=== PATIENT | male | born 1950 | race Caucasian/White ===

== ENCOUNTER 2017-10-08 23:12 | Inpatient (IN) | payer MEDICARE ==
[2017-10-08 23:46] LABS: Bilirubin Negative (Negative); Blood, Urine Negative (Negative); Clarity CLEAR (Clear); Glucose, Urine (Dipstick) Negative (Negative); Leukocyte Negative (Negative); Nitrite Negative (Negative); Protein, Urine (Dipstick) 300 mg/dL (Neg-Trace); Specific Gravity, Urine 1.016 (1.002-1.036)
[2017-10-08 23:50] LABS: Bacteria/HPF None Seen HPF (None Seen); Hyaline Casts/LPF 0-3 HYALINE CAST LPF (0-3 Hyaline); Pathc Cast-AUWi Flag 0.14 (0-2.49); RBC/HPF 0-3 HPF (0-3); Squamous Epithelial None Seen HPF (0-3); WBC/HPF 0-3 HPF (0-3)
[2017-10-08 23:54] LABS: #Lymphocytes 0.4 thou/uL (1.20-3.40); #Monocytes 0.5 thou/uL (0.11-0.59); #Neutrophils 5.9 thou/uL (1.40-6.50); %Basophils 0.2 % (0.0-1.0); %Eosinophils 0.3 % (0.0-10.0); %Lymphocytes 6.3 % (21.0-51.0); %Monocytes 7.8 % (0.0-10.0); %Neutrophils 85.4 % (42.0-75.0); Hemoglobin 8.7 g/dL (14.0-18.0); Mean Corpuscular HGB CONC 32.1 g/dL (32.0-36.0); Mean Corpuscular Hemoglobin 31.2 pg (27.0-31.0); Mean Corpuscular Volume 97.3 fl (80.0-94.0); Mean Platelet Volume 8.2 fL (7.4-10.4); Platelet Count 139 thou/uL (130-400); RBC Distribution Width 16.7 % (11.5-14.5); Red Blood Cell (RBC) Count 2.78 mill/uL (4.70-6.10)
--- NOTE | 2017-10-08 23:57 | RAD ---
TWO VIEWS CHEST 10/08/17 HISTORY: Cough. Kidney transplant 14 years ago. COMPARISON: 10/24/14. FINDINGS: Normal cardiac silhouette. Pulmonary vessels and hilum are normal. Costophrenic angles are clear. Hyp erinflation with what are presumed to be chronic changes. Left lower lobe infiltrate is suspected. No pneumothorax or osseous abnormalities. IMPRESSION: 1. Hyperinflation. Chronic changes. 2. Left lower lobe infiltrate. POS: [facility]
[2017-10-09 00:09] LABS: ALT (SGPT) 13 U/L (8-55); AST (SGOT) 18 U/L (5-34); Albumin 3.8 g/dL (3.4-4.8); Alkaline Phosphatase 45 U/L (40-150); Anion Gap 15 mmol/L (10-20); BUN (Urea Nitrogen) 75 mg/dL (8.4-25.7); Bilirubin, Total 0.6 mg/dL (0.2-1.2); Calc. Creatinine Clearance 0 mL/min (70-130); Calcium 9.2 mg/dL (7.8-10.44); Carbon Dioxide 21 mmol/L (23-31); Chloride 106 mmol/L (98-107); Estimated GFR-MDRD 16; Globulin 2.8 g/dL (2.4-3.5); Glucose 94 mg/dL (80-115); Potassium 4.3 mmol/L (3.5-5.1); Protein, Total 6.6 g/dL (5.8-8.1); Sodium 138 mmol/L (136-145)
[2017-10-09] MEDS ORDERED: Acetaminophen 500 MG TAB ONE ×3 (00:39→01:22)
[2017-10-09] MEDS ORDERED: Azithromycin 500 MG in Sodium Chloride 0.9% 250 ML 250 ML IVPB SCH (01:30)
[2017-10-09] MEDS ORDERED: cefTRIAXone\\ROCEPHIN 2 GM in Sodium Chloride 0.9% 100 ML IVPB SCH ×2 (01:30→03:04)
--- NOTE | 2017-10-09 02:22 | PDOC.FPRHP ---
- History of Present Illness Chief Complaint: Fevers History of Present Illness: 67 yo male comes in with complaints of feeling ill and fevers recorded at home. Started developing non productive cough at home 2 days ago. Denies being productive. States feeling drowsy and weak yesterday. Family in room says noticed increased weakness at home. Today he felt cold. Family says had low grade fever early in the day and then recorded a fever of 101 at home later last night. Pt reports nausea and dry heaving. Denies any nasal congestion. Reports SOB. Denies any chest pain. Denies any head congestion or headache. Denies any diarrhea or constipation. Denies any urinary symptoms. Denies any abdominal pain. Says did not have much of an appetite today and has not eaten much today. Denies any other problems at this time. - Allergies/Adverse Reactions Allergies Allergy/AdvReac Type Severity Reaction Status Date / Time ciprofloxacin Allergy Verified 10/09/17 05:24 Iodinated Contrast- Oral and Allergy Verified 10/09/17 05:24 IV Dye [Iodinated Contrast Media - IV Dye] - Home Medications Medication Instructions Recorded Confirmed Type Allopurinol 0.5 tab PO DAILY 04/13/14 10/09/17 History Atenolol 0.5 tab PO QPM 04/13/14 10/09/17 History Calcitriol 0.25 mcg PO DAILY 04/13/14 10/09/17 History Calcium Carbonate [Tums] 2 tab PO PRN PRN 04/13/14 10/09/17 History Fish Oil [Fish Oil] 1,000 mg PO DAILY 04/13/14 10/09/17 History Furosemide 1 tab PO BID 04/13/14 10/09/17 History Tacrolimus [Prograf] 2 tab PO BID 04/13/14 10/09/17 History Tamsulosin HCl [Flomax] 1 tab PO DAILY 04/13/14 10/09/17 History hydrALAZINE HCl 100 mg PO TID 04/13/14 10/09/17 History predniSONE 5 mg PO DAILY 04/13/14 10/09/17 History traMADol HCl [Ultram] 1 tab PO Q6H PRN 04/26/14 10/09/17 History Aspirin 1 tab PO DAILY 10/09/17 10/09/17 History Cholecalciferol (Vitamin D3) 5,000 unit PO DAILY 10/09/17 10/09/17 History [Vitamin D3] Darbepoetin Tato in Polysorbat 100 mcg SC [id number] 10/09/17 10/09/17 History [Aranesp] Diclofenac Sodium [Diclofenac 2 gm TOP BID 10/09/17 10/09/17 History Sodium 1% Gel] Lactobacillus Acidophilus 1 capsule PO BID 10/09/17 10/09/17 History [Probiotic] NIFEdipine [Nifedipine ER] 1 tab PO BID 10/09/17 10/09/17 History Rosuvastatin [Crestor] 1 tab PO DAILY 10/09/17 10/09/17 History Sodium Bicarbonate 650 mg PO DAILY 10/09/17 10/09/17 History predniSONE [Prednisone] 10 mg PO PRN PRN 10/09/17 10/09/17 History - History PMHx: HTN, Gout, Cataracts, 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 denies: night sweats, fatigue Eyes: denies: eye pain, vision changes ENT: denies: nasal congestion, rhinorrhea, other Respiratory: reports: cough, shortness of breath. denies: congestion, exercise intolerance, other Cardiovascular: reports: edema. denies: chest pain, palpitation, paroxysmal nocturnal dyspnea, orthopnea, other Gastrointestinal: reports: nausea. denies: vomiting, diarrhea, constipation, abdominal pain, GI bleeding Genitourinary: denies: incontinence, dysuria, polyuria, discharge Skin: denies: rashes, lesions, jaundice, itching Musculoskeletal: denies: pain, tenderness, stiffness, arthritis/arthralgias Neurological: denies: numbness, syncope, seizure, weakness Psychological: denies: anxiety, depression - Vital signs BP: [164/74] HR: [77] RR: [76] Tmax: [99.3] Pox: [93]% on [ra] Wt: [94kg] - Physical Exam Constitutional: NAD, awake, alert and oriented, well developed HEENT: normocephalic and atraumatic, PERRLA, no scleral icterus, grossly normal vision, normal nasal mucosa Neck: supple, trachea midline, no LAD, no JVD, no thyromegaly Chest: no-tender to palpation, no lesions Heart: RRR, normal S1/S2, no murmurs/rubs/gallops, pulses present, other (Edema present in LE bilaterally. 1-2+ pitting edema) Lungs: no respiratory distress, good air movement -Lungs: Mild rales noted in LLL. No wheezing present Abdomen: soft, non-tender, bowel sounds present, no masses/distention, no hernias Musculoskeletal: normal structure, normal tone Neurological: no focal deficit Skin: no rash/lesions, good turgor, capillary refill <2 seconds -Skin: Some yellowing of skin. possible jaundice Heme/Lymphatic: no unusual bruising or bleeding, no purpura, no petechia Psychiatric: normal mood and affect, good judgment and insight, intact recent and remote memory FMR H&P: Results - Labs Result Diagrams: 10/09/17 04:54 10/09/17 04:54 Lab results: WBC 7.0 thou/uL (4.8-10.8) 10/08/17 23:37 Hgb 8.7 g/dL (14.0-18.0) L 10/08/17 23:37 Hct 27.1 % (42.0-52.0) L 10/08/17 23:37 MCV 97.3 fl (80.0-94.0) H 10/08/17 23:37 Plt Count 139 thou/uL (130-400) 10/08/17 23:37 Neutrophils % 85.4 % (42.0-75.0) H 10/08/17 23:37 Sodium 138 mmol/L (136-145) 10/08/17 23:37 Potassium 4.3 mmol/L (3.5-5.1) 10/08/17 23:37 Chloride 106 mmol/L (98-107) 10/08/17 23:37 Carbon Dioxide 21 mmol/L (23-31) L 10/08/17 23:37 BUN 75 mg/dL (8.4-25.7) H 10/08/17 23:37 Creatinine 3.69 mg/dL (0.6-1.3) H 10/08/17 23:37 Glucose 94 mg/dL (80-115) 10/08/17 23:37 Lactic Acid 0.8 mmol/L (0.5-2.2) 10/08/17 23:31 Calcium 9.2 mg/dL (7.8-10.44) 10/08/17 23:37 Total Bilirubin 0.6 mg/dL (0.2-1.2) 10/08/17 23:37 AST 18 U/L (5-34) 10/08/17 23:37 ALT 13 U/L (8-55) 10/08/17 23:37 Alkaline Phosphatase 45 U/L (40-150) 10/08/17 23:37 Serum Total Protein 6.6 g/dL (5.8-8.1) 10/08/17 23:37 Albumin 3.8 g/dL (3.4-4.8) 10/08/17 23:37 Urine Ketones Negative mg/dL (Negative) 10/08/17 23:16 Urine Blood Negative (Negative) 10/08/17 23:16 Urine Nitrite Negative (Negative) 10/08/17 23:16 Ur Leukocyte Esterase Negative (Negative) 10/08/17 23:16 Urine RBC 0-3 HPF (0-3) 10/08/17 23:16 Urine WBC 0-3 HPF (0-3) 10/08/17 23:16 Ur Squamous Epith Cells None Seen HPF (0-3) 10/08/17 23:16 Urine Bacteria None Seen HPF (None Seen) 10/08/17 23:16 - Radiology Interpretation Chest x-ray Status: image reviewed by me, report reviewed by me (1. Hyperinflation, Chronic Changes 2. LLL infiltrate) FMR H&P: A/P - Problem List (1) Community acquired pneumonia Current Visit: Yes Status: Acute Code(s): J18.9 - PNEUMONIA, UNSPECIFIED ORGANISM (2) Chronic kidney disease Current Visit: Yes Status: Acute Code(s): N18.9 - CHRONIC KIDNEY DISEASE, UNSPECIFIED (3) Myelodysplastic disease Current Visit: Yes Status: Acute Code(s): C94.6 - MYELODYSPLASTIC DISEASE, NOT CLASSIFIED (4) HTN (hypertension) Current Visit: Yes Status: Acute Code(s): I10 - ESSENTIAL (PRIMARY) HYPERTENSION (5) Sleep apnea Current Visit: Yes Status: Acute Code(s): G47.30 - SLEEP APNEA, UNSPECIFIED - Plan CAP -Cxray shows LLL infiltrate. Having fevers and getting weak at home. -Rocephin and Azithromycin for abx coverage -Urine strep and legionella ag. will adjust abx coverage dependent on results -Not requiring O2 at this time. continue to monitor -Tylenol for fevers -Urine cx and Blood cx pending -Lactic acid normal DAKOTAH vs CKD 2/2 to renal transplantation. Cr elevated 3.69. GFR 16. Pt follows with Dr. hinson here in [facility] and his transplant Doctors in [place]. Nephrology consulted- Dr. Hinson- follow recs. holding lasix at this time. Giving small amount of fluids daily BMP Myelodysplastic Syndrome -Doctors in [place]. Monitor with daily CBC -F/u outpatient HTN -continue home meds Sleep Apnea -Has home CPAP machine. Use at night as instructed. Resp to help titrate FMR H&P: Upper Level - Pertinent history 67 yo CM with multiple chronic medical issues p/w cough and fever at home. states that he developed congestion and a non-productive cough 2 days ago. Progressively worsening weakness over the last couple of days. This evening around 7pm, he was noted to have a fever to 101. 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 Hinson, who advised going to ER. Pt denies any SOB, CP, or other associated symptoms, with the exception of mildly decreased appetite today. - Pertinent findings Gen: well nourished, NAD, AAOx3 CV: RRR, 4/6 high pitched cresc-decrescendo systolic murmur radiating to the carotids, L arm fistula with good thrill Lungs: LLL rales, no wheeze Ext: warm, 2+ pitting edema to b/l knees Pulses: DP 2+ b/l - Plan Date/Time: 10/09/17 0220 Luis Manuel Kimble MD have evaluated this patient and agree with findings/plan as outlined by human resource intern resident. Pertinent changes/additions are listed here. 67 yo immunosuppressed male with h/o kidney transplant p/w 1) LLL PNA: admit to medical. PNA confirmed on CXR. Continue abx. No O2 requirement at present. Urine strep pneumo and legionella Ag pending. No evidence of sepsis syndrome at this time but blood and urine cxs pending; lactic acid negative. 2) DAKOTAH v. CKDII: family states that kidney function has been steadily worsening 2/2 rejected kidney transplant; imagine GFR is at baseline but will continue gentle fluids x 12 hrs to see if any improvement on AM labs; Dr. Hinson consulted 3) Myelodysplastic syndrome: monitor CBC; patient gets monthly Aranesp injection by oncologist in [place] 4) GARY: cont. nightly CPAP 5) HTN: Resume home meds Attending Addendum - Attending Addendum Date/Time: 10/09/17 8851 I personally evaluated the patient and discussed the management with Dr. Fernandez/ Carolyn. H&P repeated by me. I agree with the History, Examination, Assessment and Plan documented above with any addition or exceptions noted below. 67 y/o WM with PMH or renal transplant on immunosuppressants, CKD, HTN, HLD, Myelodysplastic syndrome who presents with cough, sputum production, fever to 101 and mild dyspnea. In ER found to have LLL pneumonia and elevated Cr. At this time of my exam patient was AF with O2 sat of 94% on RA and RR of 20. Heart- loud holosystolic murmur 3/6 loudest over left upper sternal border Lungs- crackles and rhonchi in LLL Labs and imaging reviewed. 1) CAP- Rocephin and Azithromycin- O2 as needed to keep sats >92% 2) Acute on CKD- unsure of his baseline Cr. Appreciate Dr. Liu recs. Mild IVF rehydration and hold lasix and other nephrotoxic meds. Expect d/c in 1-2 days pending course.
[2017-10-09] MEDS ORDERED: Acetaminophen 325 MG TAB PO PRN ×2 (02:57→03:04)
[2017-10-09] MEDS ORDERED: Ondansetron HCl/PF 4 MG/2 ML Vial IVP PRN ×2 (02:57→03:04)
[2017-10-09] MEDS ORDERED: Ondansetron ODT 4 MG TAB SL PRN ×2 (02:57→03:49)
[2017-10-09] MEDS ORDERED: Acetaminophen 650 MG Suppository PR PRN (03:04)
[2017-10-09] MEDS ORDERED: Ondansetron ODT 4 MG TAB PO PRN (03:04)
[2017-10-09] MEDS ORDERED: Sodium Chloride 0.9% 1,000 ML IV SCH (03:04)
[2017-10-09] MEDS ORDERED: cefTRIAXone\\ROCEPHIN 1 GM, Syringe 0.4 ML in Sterile Water 9.6 ML SLOW IVP SCH (04:00)
[2017-10-09] MEDS ORDERED: Furosemide 40 MG TAB PO SCH ×3 (04:00→14:00)
[2017-10-09 05:05] VITALS: BMI 26.0
[2017-10-09 05:36] LABS: ALT (SGPT) 9 U/L (8-55); AST (SGOT) 15 U/L (5-34); Albumin 3.2 g/dL (3.4-4.8); Alkaline Phosphatase 37 U/L (40-150); Anion Gap 12 mmol/L (10-20); BUN (Urea Nitrogen) 73 mg/dL (8.4-25.7); Bilirubin, Total 0.4 mg/dL (0.2-1.2); Calc. Creatinine Clearance 26 mL/min (70-130); Calcium 8.6 mg/dL (7.8-10.44); Carbon Dioxide 21 mmol/L (23-31); Chloride 108 mmol/L (98-107); Estimated GFR-MDRD 17; Globulin 2.4 g/dL (2.4-3.5); Glucose 176 mg/dL (80-115); Protein, Total 5.6 g/dL (5.8-8.1); Sodium 137 mmol/L (136-145)
[2017-10-09 06:39] LABS: Legionella Urinary Ag Negative (Negative); Strep pneumo Urine Ag NEGATIVE (NEGATIVE)
[2017-10-09 07:52] LABS: #Lymphocytes 0.8 thou/uL (1.20-3.40); #Monocytes 0.5 thou/uL (0.11-0.59); #Neutrophils 4.6 thou/uL (1.40-6.50); %Basophils 0.1 % (0.0-1.0); %Eosinophils 0.7 % (0.0-10.0); %Lymphocytes 12.8 % (21.0-51.0); %Monocytes 7.8 % (0.0-10.0); %Neutrophils 78.7 % (42.0-75.0); Hemoglobin 7.7 g/dL (14.0-18.0); MDiff Complete? YES; Mean Corpuscular HGB CONC 31.4 g/dL (32.0-36.0); Mean Corpuscular Hemoglobin 30.5 pg (27.0-31.0); Mean Corpuscular Volume 97.2 fl (80.0-94.0); Mean Platelet Volume 8.1 fL (7.4-10.4); PLT Morphology Comment Appears Decreased; Platelet Count 114 thou/uL (130-400); Polychromasia SLIGHT = 2-3 cells (100X) (0-2/hpf); RBC Distribution Width 16.7 % (11.5-14.5); Red Blood Cell (RBC) Count 2.51 mill/uL (4.70-6.10); Schistocytes SLIGHT = 2-5 cells (100X) (0-1/hpf); Tear Drops SLIGHT = 2-5 cells (100X) (0-1/hpf); White Blood Cell (WBC) Count 5.9 thou/uL (4.8-10.8)
[2017-10-09] MEDS: Calcium Carbonate 500 MG ChewTAB PO SCH (08:29)
[2017-10-09] MEDS: hydrALAZINE 25 MG TAB PO SCH ×2 (08:30→21:35)
[2017-10-09] MEDS: Mycophenolate 250 MG CAP PO SCH ×2 (08:30→21:34)
[2017-10-09] MEDS: NIFEdipine XL 30 MG TAB PO SCH ×2 (08:30→21:35)
[2017-10-09] MEDS: Tamsulosin HCl 0.4 MG CAP PO SCH (08:30)
[2017-10-09] MEDS: Fish Oil 1,000 MG CAP PO SCH (08:30)
[2017-10-09] MEDS ORDERED: Sulfameth/Trimethoprim DS 800-160mg TAB PO SCH (09:00)
[2017-10-09] MEDS: Tacrolimus 1 MG CAP PO SCH ×2 (09:26→21:35)
[2017-10-09] MEDS: Rosuvastatin 5 MG TAB PO SCH (09:26)
[2017-10-09] MEDS ORDERED: Epoetin (ESRD) 20,000 UNITS/ML SC SCH (17:00)
[2017-10-09] MEDS ORDERED: Epoetin (ESRD) 10,000 UNITS/ML VIAL SC SCH (17:15)
--- NOTE | 2017-10-09 17:56 | PDOC.FM ---
Addendum entered and electronically signed by Marielena Pagan MD 10/10/17 15:25: Please disregard this note and see note on 10/10/2017. Original Note: - Subjective Subjective: No acute events overnight. Complaining of right big toe pain. States he has a hx of gout and has taken prednisone in the past for this. He also was complaining of left lower extremity swelling and some pain around his left knee. - Objective MAR Reviewed: Yes Vital Signs & Weight: Vital Signs (12 hours) Temp Pulse Resp BP Pulse Ox 10/09/17 16:07 98.7 F 74 18 176/83 H 97 10/09/17 11:23 100 F H 78 18 160/68 H 94 L 10/09/17 08:30 80 10/09/17 08:00 98.5 F 80 18 96 10/09/17 07:38 98.7 F 80 18 177/81 H 94 L Weight Weight 92.079 kg I&O: 10/08/17 10/09/17 10/10/17 06:59 06:59 06:59 Intake Total 480 Balance 480 Result Diagrams: 10/09/17 04:54 10/10/17 11:32 <Marielena Pagan - Last Filed: 10/10/17 12:48> - Objective Vital Signs & Weight: Vital Signs (12 hours) Temp Pulse Resp BP BP Pulse Ox 10/10/17 17:27 98.5 F 92 16 144/65 H 96 10/10/17 12:06 98.7 F 63 18 146/62 H 93 L 10/10/17 08:10 62 146/67 H 10/10/17 08:07 62 146/67 H 10/10/17 08:00 97.9 F 62 16 95 10/10/17 07:48 97.9 F 62 16 146/67 H 95 Weight Weight 92.079 kg I&O: 10/09/17 10/10/17 10/11/17 06:59 06:59 06:59 Intake Total 720 Balance 720 Result Diagrams: 10/09/17 04:54 10/10/17 11:32 <Alan Quintanilla - Last Filed: 10/10/17 17:38> Phys Exam - Physical Examination Constitutional: NAD HEENT: PERRLA, moist MMs Neck: no JVD Respiratory: no wheezing coarse breath sounds bilaterally Cardiovascular: RRR, no significant murmur Gastrointestinal: soft, non-tender, no distention left lower extremity edema; right big toe tenderness to palpation pain with active and passive ROM of right big toe Psychiatric: normal affect, A&O x 3 Skin: no rash, cap refill <2 seconds <Marielena Pagan - Last Filed: 10/10/17 12:48> Dx/Plan (1) Community acquired pneumonia Code(s): J18.9 - PNEUMONIA, UNSPECIFIED ORGANISM Status: Acute (2) Gout attack Code(s): M10.9 - GOUT, UNSPECIFIED Status: Acute (3) Chronic kidney disease Code(s): N18.9 - CHRONIC KIDNEY DISEASE, UNSPECIFIED Status: Acute (4) HTN (hypertension) Code(s): I10 - ESSENTIAL (PRIMARY) HYPERTENSION Status: Acute (5) Myelodysplastic disease Code(s): C94.6 - MYELODYSPLASTIC DISEASE, NOT CLASSIFIED Status: Acute (6) Benites's cyst of knee Code(s): M71.20 - SYNOVIAL CYST OF POPLITEAL SPACE [BENITES], UNSPECIFIED KNEE Status: Acute - Plan Plan: CAP -Cxr shows LLL infiltrate. Having fevers and getting weak at home. -Rocephin and Azithromycin for abx coverage-->Will transition to levaquin PO upon discharge -Urine strep and legionella ag. negative -Not requiring O2 at this time. continue to monitor -Tylenol for fevers -Urine cx and Blood cx pending -Lactic acid normal Gout flair, right great tow -Will increase prednisone to 40mg daily. Currently on 2.5mg daily. 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 GFR 16--> Cr 3.54 today; Baseline per Dr. Hinson 3.[address] Hinson here in [facility] and his transplant Doctors in [place]. Nephrology consulted-will follow recommendations Holding lasix at this time. Daily BMPs Myelodysplastic Syndrome -Doctors in [place]. Monitor with daily CBC -F/u outpatient HTN -continue home meds Sleep Apnea -Has home CPAP machine. Use at night as instructed. Resp to help titrate Dispo: Can likely be discharged this afternoon. <Marielena Pagan - Last Filed: 10/10/17 12:48> Attending Addendum - Attending Addendum Date/Time: 10/10/17 6690 I personally evaluated the patient and discussed the management with Dr. Pagan I agree with the History, Examination, Assessment and Plan documented above with any addition or exceptions noted below. <Alan Quintanilla - Last Filed: 10/10/17 17:38>
--- NOTE | 2017-10-09 18:51 | CON ---
DATE OF CONSULTATION: 10/09/2017 HISTORY OF PRESENT ILLNESS: Mr. 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 He was found to have pneumonia. We are now being consulted for his chronic renal failure. REVIEW OF SYSTEMS: Positive for fever and chills. Positive for cough. No nausea, no vomiting. Pos itive for generalized malaise, decreased appetite, decreased energy level. No gross hematuria, no dy suria, no urine frequency, no headache, no diplopia, no sore throat, positive for runny nose. No hem atochezia, no melena, no hematemesis, occasional joint pains, no new skin rash. CURRENT MEDICATIONS: Tylenol 650 mg q.4 hours p.r.n., Tenormin 25 mg q.p.m., Zithromax 250 mg daily, calcitriol 0.25 mcg every day, Tums 1000 mg daily, ceftriaxone 1 gram IV daily, fish oil 1000 mg magnus ly, hydralazine 100 mg p.o. b.i.d., CellCept 500 mg p.o. b.i.d., nifedipine 30 mg p.o. b.i.d., Zofran p.r.n., prednisone 5 mg at bedtime, Crestor 5 mg daily, Prograf 2 mg p.o. b.i.d., tamsulosin 0.4 mg daily, Ultram 50 mg q.4 hours p.r.n. PAST MEDICAL HISTORY: 1. History of progressive renal dysfunction of the renal transplant secondary to recurrence of FSGS. 2. Myelodysplastic syndrome. 3. Gout. 4. Hyperlipidemia. 5. Hypertension. 6. Chronic anemia of chronic renal disease. PAST SURGICAL HISTORY: 1. Status post cadaveric renal transplant -- done in [place]. 2. Status post renal biopsy of [place] kidney. 3. Status post right shoulder surgery. 4. Status post cuffed dialysis catheter placement. 5. Status post AV fistula placement. 6. Status post colonoscopy. 7. Status post upper and lower GI endoscopy. 8. Status post periumbilical hernia repair. 9. Status post renal allograft biopsy. SOCIAL HISTORY: The patient lives in [place]. 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 Smoked for 8 years, 1 pack a day. Alcohol: Occasional. No IV drug abuse. Status post blood sandoval sfusion. Education: Finished college. FAMILY HISTORY: No family history of ESRD. ALLERGIES: CIPRO and CONTRAST. TRAUMA: None. IMMUNIZATIONS: Up to date. HOSPITALIZATIONS: Please see past medical history. PHYSICAL EXAMINATION: VITAL SIGNS: Blood pressure is 176/83, heart rate 74, respiratory rate 18, temperature 98.7, T-max i s 100, pulse ox 97%. GENERAL: Noted to be awake, alert, comfortable, lethargic, but not in distress. SKIN: Adequate turgor. HEENT: Slightly pale conjunctivae, anicteric sclerae. NECK: No neck mass, no carotid bruits, no JVD. CHEST: No deformities. LUNGS: Decreased breath sounds, left. Right clear breath sounds. HEART: Normal sinus rhythm. No murmur, no gallops or rubs. ABDOMEN: Globular, soft, nontender, no masses. Positive for bowel sounds. Negative for epigastric bruits. GROIN: No inguinal lymphadenopathy, no femoral artery bruits. RECTAL/GENITALIA: Deferred. EXTREMITIES: No edema, no deformities. LABORATORY DATA: Laboratories of 10/09/2017: White count 5.9, hemoglobin 7.7, hematocrit 24.4. Sod ium 137, potassium 4, chloride 108, carbon dioxide 21, BUN 73, creatinine 3.54. Albumin is 3.2. Chest x-ray, left lobe infiltrate. ASSESSMENT AND PLAN: 1. Pneumonia -- agree with current management on azithromycin and ceftriaxone. Continue supportive care. 2. Chronic renal failure -- patient has progressive renal dysfunction secondary to recurrence of foc al segmental glomerulosclerosis. For the moment, continue current immunosuppressive regimen. 3. Chronic anemia -- patient being given erythropoietin by his credit verification clerk. He also has underlying myelodysplastic syndrome. My recommendation, start Epogen 10,000 units subcutaneously every week. 4. Hypertension. Continue current blood pressure medications. There is no indication for any dialytic intervention.
[2017-10-09] MEDS: Calcitriol 0.25 MCG CAP PO SCH (21:36)
[2017-10-09] MEDS: predniSONE 5 MG TAB PO SCH (21:36)
[2017-10-09] MEDS: Atenolol 25 MG TAB PO SCH (21:36)
[2017-10-10] MEDS: cefTRIAXone\\ROCEPHIN 1 GM, Syringe 0.4 ML in Sterile Water 9.6 ML SLOW IVP SCH (01:20)
[2017-10-10] MEDS ORDERED: cefTRIAXone\\ROCEPHIN 1 GM in Sodium Chloride 0.9% 100 ML IVPB SCH (01:30)
[2017-10-10] MEDS: Tamsulosin HCl 0.4 MG CAP PO SCH (08:07)
[2017-10-10] MEDS: NIFEdipine XL 30 MG TAB PO SCH ×2 (08:07→20:17)
[2017-10-10] MEDS: Calcium Carbonate 500 MG ChewTAB PO SCH (08:07)
[2017-10-10] MEDS: Azithromycin 250 MG TAB PO SCH (08:07)
[2017-10-10] MEDS: Fish Oil 1,000 MG CAP PO SCH (08:07)
[2017-10-10] MEDS: Rosuvastatin 5 MG TAB PO SCH (08:07)
[2017-10-10] MEDS: Tacrolimus 1 MG CAP PO SCH ×2 (08:07→20:18)
[2017-10-10] MEDS: Mycophenolate 250 MG CAP PO SCH (08:09)
[2017-10-10] MEDS: hydrALAZINE 25 MG TAB PO SCH ×2 (08:10→20:16)
--- NOTE | 2017-10-10 08:41 | ULT ---
BILATERAL LOWER EXTREMITY VENOUS DOPPLER: DATE: 10/10/17. PROVIDED CLINICAL HISTORY: Bilateral lower extremity edema. FINDINGS: Garrett scale and color Doppler sonography with spectral analysis was performed of the bilateral common femoral, femoral, popliteal, posterior tibial, greater saphenous, and profunda femoral veins, demonst rating a normal sonographic appearance of each. There is a complex mass present in the left poplitea l fossa which may reflect complicated Benites's cyst but is incompletely characterized sonographically. IMPRESSION: 1. No sonographic evidence for lower extremity deep vein thrombosis. 2. Complex mass within the left popliteal fossa may reflect complicated Benites's cyst. If clinical f indings are atypical for such, consider further imaging. POS: [facility]
[2017-10-10 12:02] LABS: Anion Gap 15 mmol/L (10-20); BUN (Urea Nitrogen) 71 mg/dL (8.4-25.7); Calc. Creatinine Clearance 27 mL/min (70-130); Calcium 9.2 mg/dL (7.8-10.44); Carbon Dioxide 22 mmol/L (23-31); Chloride 106 mmol/L (98-107); Estimated GFR-MDRD 18; Glucose 105 mg/dL (80-115); Potassium 4.4 mmol/L (3.5-5.1); Sodium 139 mmol/L (136-145)
--- NOTE | 2017-10-10 15:25 | PDOC.FM ---
- Subjective Subjective: No acute events overnight. Complaining of right big toe pain. States he has a hx of gout and has taken prednisone in the past for this. He also was complaining of left lower extremity swelling and some pain around his left knee. - Objective Vital Signs & Weight: Vital Signs (12 hours) Temp Pulse Resp BP BP Pulse Ox 10/10/17 12:06 98.7 F 63 18 146/62 H 93 L 10/10/17 08:10 62 146/67 H 10/10/17 08:07 62 146/67 H 10/10/17 08:00 97.9 F 62 16 95 10/10/17 07:48 97.9 F 62 16 146/67 H 95 10/10/17 04:00 98.0 F 64 18 134/65 97 Weight Weight 92.079 kg I&O: 10/09/17 10/10/17 10/11/17 06:59 06:59 06:59 Intake Total 720 Balance 720 Result Diagrams: 10/09/17 04:54 10/10/17 11:32 <Marielena Pagan - Last Filed: 10/10/17 15:25> - Objective Vital Signs & Weight: Vital Signs (12 hours) Temp Pulse Resp BP BP Pulse Ox 10/10/17 17:27 98.5 F 92 16 144/65 H 96 10/10/17 12:06 98.7 F 63 18 146/62 H 93 L 10/10/17 08:10 62 146/67 H 10/10/17 08:07 62 146/67 H 10/10/17 08:00 97.9 F 62 16 95 10/10/17 07:48 97.9 F 62 16 146/67 H 95 Weight Weight 92.079 kg I&O: 10/09/17 10/10/17 10/11/17 06:59 06:59 06:59 Intake Total 720 Balance 720 Result Diagrams: 10/09/17 04:54 10/10/17 11:32 <Alan Quintanilla - Last Filed: 10/10/17 17:36> Phys Exam - Physical Examination Constitutional: NAD Respiratory: no wheezing, no rales, clear to auscultation bilateral Cardiovascular: RRR, no significant murmur Gastrointestinal: soft, non-tender, no distention mild edema of left lower extremity; right great toe ttp with mild erythema Psychiatric: normal affect, A&O x 3 Skin: no rash <Marielena Pagan - Last Filed: 10/10/17 15:25> Dx/Plan (1) Community acquired pneumonia Code(s): J18.9 - PNEUMONIA, UNSPECIFIED ORGANISM Status: Acute (2) Gout attack Code(s): M10.9 - GOUT, UNSPECIFIED Status: Acute (3) Chronic kidney disease Code(s): N18.9 - CHRONIC KIDNEY DISEASE, UNSPECIFIED Status: Acute (4) HTN (hypertension) Code(s): I10 - ESSENTIAL (PRIMARY) HYPERTENSION Status: Acute (5) Myelodysplastic disease Code(s): C94.6 - MYELODYSPLASTIC DISEASE, NOT CLASSIFIED Status: Acute (6) Benites's cyst of knee Code(s): M71.20 - SYNOVIAL CYST OF POPLITEAL SPACE [BENITES], UNSPECIFIED KNEE Status: Acute - Plan Plan: Plan: CAP -Cxr shows LLL infiltrate. Having fevers and getting weak at home. -Rocephin and Azithromycin for abx coverage-->Will transition to levaquin PO upon discharge -Urine strep and legionella ag. negative -Not requiring O2 at this time. continue to monitor -Tylenol for fevers -Urine cx and Blood cx pending -Lactic acid normal Gout flair, right great tow -Will increase prednisone to 40mg daily. Currently on 2.5mg daily. 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 GFR 16--> Cr 3.54 today; Baseline per Dr. Hinson 3.[address] [facility] in [place]. Nephrology consulted-will follow recommendations Holding lasix at this time. Daily BMPs Myelodysplastic Syndrome -Doctors in [place]. Monitor with daily CBC -F/u outpatient HTN -continue home meds Sleep Apnea -Has home CPAP machine. Use at night as instructed. Resp to help titrate Dispo: Can likely be discharged this afternoon. <Marielena Pagan - Last Filed: 10/10/17 15:25> Attending Addendum - Attending Addendum Date/Time: 10/10/17 0676 I personally evaluated the patient and discussed the management with Dr. Pagan I agree with the History, Examination, Assessment and Plan documented above with any addition or exceptions noted below. Bakers cyst, Gout and meralgia paresthetica to be managed further as outpatient. Rec short term increase prednisone for gout and continue allopurinol. <Alan Quintanilla - Last Filed: 10/10/17 17:36>
--- NOTE | 2017-10-10 17:11 | HP ---
HISTORY OF PRESENT ILLNESS: Mr. 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 Currently on antibiotics. Today, complaining of joint pains. He thinks he is h aving acute gouty attack. No other complaints. No chest pain or shortness of breath. PHYSICAL EXAMINATION: VITAL SIGNS: Blood pressure is 146/62, heart rate 63, respiratory rate 18, temperature 98.7, pulse o x 93%. GENERAL: Awake, alert, comfortable, not in distress. SKIN: Adequate turgor. HEENT: Slightly pale conjunctivae, anicteric sclerae. NECK: No neck mass, no carotid bruits, no JVD. CHEST: No deformities. LUNGS: Clear breath sounds, no wheezing, no crackles. HEART: Normal sinus rhythm. No murmur, no gallops, no rubs. ABDOMEN: Globular, soft, nontender. No masses. EXTREMITIES: No edema, no deformities. MEDICATIONS: Of 10/10/2017, reviewed. LABORATORY: Of 10/10/2017, white count 5.9, hemoglobin 7.7. Of 10/10/2017, BUN 71, creatinine 3.41, GFR 18 mL per minute. Glucose is 105. Lactic acid 0.8. ASSESSMENT AND PLAN: 1. Status post cadaveric renal transplant - progressive renal dysfunction secondary to recurrence of focal segmental glomerulosclerosis. The patient told me that his transplant bilingual office assistant discontinu ed his CellCept. We will now discontinue the CellCept medication, but we will leave him on the predn isone and Prograf. 2. Acute gouty attack - initiation of colchicine is a relative contraindication due to his worsening renal dysfunction. We are also avoiding NSAIDs. We will start him on Medrol Dosepak. 3. Pneumonia, on empiric IV antibiotics. Agree with current management. Case discussed with the house staff. Possible discharge in a.m.
[2017-10-10] MEDS: Calcitriol 0.25 MCG CAP PO SCH (20:16)
[2017-10-10] MEDS: Atenolol 25 MG TAB PO SCH (20:16)
[2017-10-10] MEDS: predniSONE 5 MG TAB PO SCH (20:17)
[2017-10-10] MEDS: traMADol HCl 50 MG TAB PO PRN (20:18)
[2017-10-11] MEDS: cefTRIAXone\\ROCEPHIN 1 GM, Syringe 0.4 ML in Sterile Water 9.6 ML SLOW IVP SCH (01:28)
[2017-10-11 05:30] LABS: #Eosinphils 0.1 thou/uL (0.0-0.7); #Lymphocytes 0.9 thou/uL (1.20-3.40); #Monocytes 0.4 thou/uL (0.11-0.59); #Neutrophils 3.4 thou/uL (1.40-6.50); %Basophils 0.3 % (0.0-1.0); %Lymphocytes 18.8 % (21.0-51.0); %Monocytes 7.4 % (0.0-10.0); %Neutrophils 71.5 % (42.0-75.0); Hemoglobin 7.8 g/dL (14.0-18.0); Mean Corpuscular HGB CONC 33.5 g/dL (32.0-36.0); Mean Corpuscular Hemoglobin 32.5 pg (27.0-31.0); Mean Corpuscular Volume 97.2 fl (80.0-94.0); Mean Platelet Volume 8.4 fL (7.4-10.4); Platelet Count 111 thou/uL (130-400); RBC Distribution Width 16.5 % (11.5-14.5); White Blood Cell (WBC) Count 4.8 thou/uL (4.8-10.8)
[2017-10-11] MEDS: traMADol HCl 50 MG TAB PO PRN (05:34)
[2017-10-11] MEDS: Tamsulosin HCl 0.4 MG CAP PO SCH (08:39)
[2017-10-11] MEDS: Tacrolimus 1 MG CAP PO SCH (08:39)
[2017-10-11] MEDS: Calcium Carbonate 500 MG ChewTAB PO SCH (08:39)
[2017-10-11] MEDS: Fish Oil 1,000 MG CAP PO SCH (08:39)
[2017-10-11] MEDS: Rosuvastatin 5 MG TAB PO SCH (08:39)
[2017-10-11] MEDS: hydrALAZINE 25 MG TAB PO SCH (08:39)
[2017-10-11] MEDS: NIFEdipine XL 30 MG TAB PO SCH (08:40)
[2017-10-11] MEDS: Azithromycin 250 MG TAB PO SCH (08:40)
--- NOTE | 2017-10-11 11:01 | PDOC.FM ---
- Subjective Subjective: Pt complaining of pain in his right toe. He denies difficulty breathing. - Objective MAR Reviewed: Yes Vital Signs & Weight: Vital Signs (12 hours) Temp Pulse Resp BP Pulse Ox 10/11/17 08:40 68 151/74 H 10/11/17 08:39 68 151/74 H 10/11/17 08:00 98.8 F 61 18 93 L Weight Weight 92.079 kg I&O: 10/10/17 10/11/17 10/12/17 06:59 06:59 06:59 Intake Total 720 1340 Balance 720 1340 Result Diagrams: 10/11/17 05:03 10/10/17 11:32 <Marielena Pagan - Last Filed: 10/11/17 11:19> - Objective Vital Signs & Weight: Vital Signs (12 hours) Temp Pulse Resp BP BP Pulse Ox 10/11/17 13:04 97.6 F 61 18 138/70 96 10/11/17 08:40 68 151/74 H 10/11/17 08:39 68 151/74 H 10/11/17 08:00 98.8 F 61 18 93 L Weight Weight 92.079 kg I&O: 10/10/17 10/11/17 10/12/17 06:59 06:59 06:59 Intake Total 720 1340 Balance 720 1340 Result Diagrams: 10/11/17 05:03 10/10/17 11:32 <Alan Quintanilla - Last Filed: 10/11/17 14:32> Phys Exam - Physical Examination Constitutional: NAD Respiratory: no wheezing, no rales, clear to auscultation bilateral Cardiovascular: RRR, no significant murmur Gastrointestinal: soft, non-tender, no distention Musculoskeletal: no edema, pulses present Neurological: non-focal Psychiatric: normal affect, A&O x 3 Skin: no rash <Marielena Pagan - Last Filed: 10/11/17 11:19> Dx/Plan (1) Community acquired pneumonia Code(s): J18.9 - PNEUMONIA, UNSPECIFIED ORGANISM Status: Acute (2) Gout attack Code(s): M10.9 - GOUT, UNSPECIFIED Status: Acute (3) Chronic kidney disease Code(s): N18.9 - CHRONIC KIDNEY DISEASE, UNSPECIFIED Status: Acute (4) HTN (hypertension) Code(s): I10 - ESSENTIAL (PRIMARY) HYPERTENSION Status: Acute (5) Myelodysplastic disease Code(s): C94.6 - MYELODYSPLASTIC DISEASE, NOT CLASSIFIED Status: Acute (6) Benites's cyst of knee Code(s): M71.20 - SYNOVIAL CYST OF POPLITEAL SPACE [BENITES], UNSPECIFIED KNEE Status: Acute - Plan Plan: CAP -Will transition to omnicef and azithromicin upon discharge -Urine strep and legionella ag. negative -Not requiring O2 at this time. continue to monitor -Tylenol for fevers -Urine cx and Blood cx NGTD. 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 GFR 16--> Cr 3.54-->3.4 today Nephrology consulted-will follow recommendations Holding lasix at this time. Daily BMPs Myelodysplastic Syndrome -[facility] [place]. Monitor with daily CBC -F/u outpatient HTN -continue home meds Sleep Apnea -Has home CPAP machine. Use at night as instructed. Resp to help titrate Dispo: Can likely be discharged this afternoon. <Marielena Pagan - Last Filed: 10/11/17 11:19> Attending Addendum - Attending Addendum Date/Time: 10/11/17 [id number] I personally evaluated the patient and discussed the management with Dr. Pagan I agree with the History, Examination, Assessment and Plan documented above with any addition or exceptions noted below. Patient ok for discharge unless Nephrology request continued observation. <Alan Quintanilla - Last Filed: 10/11/17 14:32>
[2017-10-11 13:05] VITALS: BP 138/70; TEMP 97.6
--- NOTE | 2017-10-13 07:15 | HP ---
HISTORY OF PRESENT ILLNESS: Mr. Gonsalves is a 67-year-old white male with known history of renal tra nsplantation with progressive renal dysfunction secondary to recurrence of FSGS. He also had an acut e exacerbation of his gout yesterday. He was started on Medrol Dosepak. He is feeling better. He i s complaining of some left knee pain now with some swelling. He Denies any chest pain or shortness o f breath. OBJECTIVE VITAL SIGNS: Blood pressure is 151/74, heart rate 61, respiratory rate 18, temperature 98.8, and pul se ox 93%. GENERAL: Noted to be awake, supine, comfortable, not in distress. SKIN: Adequate turgor. HEENT: Slightly pale conjunctivae. Anicteric sclerae. NECK: No neck mass. No carotid bruits. No JVD. CHEST: No deformities. LUNGS: Clear breath sounds. No wheezing. No crackles. HEART: Normal sinus rhythm. No murmurs, no gallops, no rubs. ABDOMEN: Globular, soft, nontender, no masses. EXTREMITIES: Positive for edema left leg. Positive for mild swelling of the left knee. MEDICATIONS: On 10/11/2017 - reviewed. LABORATORY DATA: Laboratories of 10/11/2017 - white count 4.8, hemoglobin 7.8. On 10/10/2017 - BUN 71, creatinine 3.41, calcium 9.2. ASSESSMENT AND PLAN 1. Chronic renal failure/status post cadaveric renal transplant, stable renal function. Last creati nine was 3.4, which is near baseline. He is currently at stage IV chronic renal failure. Continue s upportive care. Continue current immunosuppressive regimen. There is no indication for any dialytic intervention. 2. Acute gouty exacerbation. Currently on steroids-prednisone 5 mg tab once a day. I reviewed his medication; it looks like he did not receive his Medrol Dosepak. I spoke with nursing to get in touch with pharmacy. Anemia continuing weekly Epogen. Once the patient discharged, we will refer him to an outpatient con sultation with Dermatology. Overall agree with current management.
== END 2017-10-11 13:29 | disposition home or self-care (01) | DRG 194 ==
LOC: ERS 23:12 → T4-B 10-09 01:17
PROVIDERS: ADMIT Family Medicine; ATTEND Family Medicine
DX: J18.9 Pneumonia, unspecified organism (principal); Z94.0 Kidney transplant status; N17.9 Acute kidney failure, unspecified; E11.22 Type 2 diabetes mellitus with diabetic chronic kidney disease; D64.9 Anemia, unspecified; M10.9 Gout, unspecified; Z79.899 Other long term (current) drug therapy; Z79.2 Long term (current) use of antibiotics; Z79.52 Long term (current) use of systemic steroids; D46.9 Myelodysplastic syndrome, unspecified; E78.5 Hyperlipidemia, unspecified; I12.9 Hypertensive chronic kidney disease with stage 1 through stage 4 chronic kidney disease, or unspecified chronic kidney disease; Z88.1 Allergy status to other antibiotic agents; Z91.041 Radiographic dye allergy status; M71.20 Synovial cyst of popliteal space [Baker], unspecified knee; N18.2 Chronic kidney disease, stage 2 (mild); G47.30 Sleep apnea, unspecified; Z87.891 Personal history of nicotine dependence
CPT/HCPCS: 36415; 71046; 80048; 80053; 81003; 81015; 83605; 85025; 87040; 87086; 87899; 93970; 96361; 96365; A4216; J0456; J0696; J7050; J7507; J7517; Q4081

== ENCOUNTER 2017-11-26 13:09 | Outpatient (CLI) | payer MEDICARE ==
[2017-11-26 15:07] LABS: #Lymphocytes 0.7 thou/uL (1.20-3.40); #Monocytes 0.2 thou/uL (0.11-0.59); #Neutrophils 3.7 thou/uL (1.40-6.50); %Basophils 0.1 % (0.0-1.0); %Eosinophils 0.9 % (0.0-10.0); %Lymphocytes 15.7 % (21.0-51.0); %Monocytes 4.7 % (0.0-10.0); %Neutrophils 78.5 % (42.0-75.0); Hemoglobin 9.6 g/dL (14.0-18.0); Mean Corpuscular HGB CONC 32.5 g/dL (32.0-36.0); Mean Corpuscular Hemoglobin 31.3 pg (27.0-31.0); Mean Corpuscular Volume 96.3 fl (80.0-94.0); Mean Platelet Volume 8.3 fL (7.4-10.4); Platelet Count 120 thou/uL (130-400); RBC Distribution Width 17.4 % (11.5-14.5); Red Blood Cell (RBC) Count 3.06 mill/uL (4.70-6.10); White Blood Cell (WBC) Count 4.6 thou/uL (4.8-10.8)
[2017-11-26 15:28] LABS: Anion Gap 18 mmol/L (10-20); BUN (Urea Nitrogen) 96 mg/dL (8.4-25.7); Calc. Creatinine Clearance 0 mL/min (70-130); Calcium 9.9 mg/dL (7.8-10.44); Carbon Dioxide 23 mmol/L (23-31); Chloride 103 mmol/L (98-107); Estimated GFR-MDRD 13; Glucose 101 mg/dL (80-115); Potassium 4.3 mmol/L (3.5-5.1); Sodium 140 mmol/L (136-145)
--- NOTE | 2017-11-26 18:09 | HP ---
HISTORY OF PRESENT ILLNESS: Dwain Gonsalves is a 67-year-old male patient who I have seen in 2010 f or umbilical hernia repair, now presents desires peritoneal dialysis catheter placement. In 2000, th e patient had a left arm primary fistula which remains patent. He is on hemodialysis for 18 months a nd then in 2002, he underwent a renal transplant, cadaveric. After that operation, he had hernia rep air at his transplant incision and subsequent to that in 2010, I performed umbilical hernia repair wi . Patient has not yet started hemodialysis. Plan is to place a laparoscopic peritoneal dialy sis catheter as an outpatient. He understands risks of infection, bleeding, reoperation, malfunction of the PD catheter and consents. We will proceed. ALLERGIES: CIPRO, IODINE. ALCOHOL: One beer a day. TOBACCO: None. MEDICATIONS: Aranesp 100 mcg as directed for myelodysplastic syndrome, Crestor 5 mg at bedtime, dicl ofenac gel p.r.n., probiotic b.i.d., tramadol as needed, Tums 500 two tabs every day, vitamin D 50,00 0 units one capsule weekly, hydralazine 100 mg t.i.d., Flomax 0.4 mg a day, fish oil 1000 mg a day, prednisone 5 mg a day, tacrolimus 1 mg 2 caps b.i.d., atenolol 1/2 tablet at bedtime, sodium bicarbon ate 650 mg b.i.d., allopurinol 300 mg 1/2 tab daily, CPAP at bedtime, nifedipine 60 mg XL in the morn ing, 30 mg XL at night, prednisone p.r.n., calcitriol 0.5 mcg every day, furosemide 40 mg a day. Erica wagner has a functioning renal transplant, although deteriorating function. He will need dialysis soon . PAST SURGICAL HISTORY: Umbilical hernia repair with mesh, renal transplant, left upper arm fistula i n 2000, renal transplant in 2002 with subsequent transplant, umbilical hernia repair performed in , arthroscopy in the right in 1982, right shoulder repair in 2012. PAST MEDICAL HISTORY: Myelodysplastic syndrome; gout; sleep apnea on CPAP at bedtime; chronic kidney disease with renal transplant, progressing to chronic kidney disease; sleep apnea; hypertension. ALLERGIES: CIPRO, IODINE. The patient is followed by Dr. Harris, has had negative cardiac stress test in the past and normal echocardiograms. Colonoscopy two years ago, focal glomerulosclerosis, nephritis. REVIEW OF SYSTEMS: [place] point noncontributory otherwise. PHYSICAL EXAMINATION: VITAL SIGNS: 202 pounds, 6 feet 2 inches, 141/64, 60, 97.5 degrees. HEENT: Unremarkable. LUNGS: Clear to auscultation. CARDIAC: Regular rate and rhythm without murmur or gallop. ABDOMEN: Soft, nontender, no hernias, intact. Umbilical hernia performed in the past. On standing Valsalva. There are no inguinal hernias. GENITOURINARY: Testicles are normal. EXTREMITIES: Unremarkable. No ankle edema. ASSESSMENT AND PLAN: 1. Failing renal transplant. We will plan laparoscopic peritoneal dialysis catheter. He has a [facility] tion[facility] left upper arm fistula with some aneurysmal dilatation proximally that could be repaired in t he future, but they reports that this is unchanged over many years and there is no indication to do t his at this time. The fistula is functional if needed. 2. Failing transplant. 3. Sleep apnea. 4. Gout. 5. Myelodysplastic syndrome.
--- NOTE | 2017-11-27 13:08 | EKG ---
Test Reason : Blood Pressure : / mmHG Vent. Rate : 073 BPM Atrial Rate : 060 BPM P-R Int : 290 ms QRS Dur : 166 ms QT Int : 498 ms P-R-T Axes : 051 002 018 degrees QTc Int : 548 ms Sinus rhythm with 1st degree A-V block with occasional PVC, Poor baseline and artifact in baseline. Right bundle branch block Abnormal ECG When compared with ECG of 13-APR-2014 17:07, QT has lengthened Confirmed by COLE GAYTAN ([id number]) on 11/27/2017 1:07:38 PM Referred By: LIAM Confirmed By:COLE GAYTAN
== END 2017-11-26 13:10 | disposition home or self-care (01) ==
LOC: LABBT 13:09
PROVIDERS: ATTEND Specialist
DX: Z01.818 Encounter for other preprocedural examination (principal); N18.6 End stage renal disease
CPT/HCPCS: 80048; 85025; 93005; 93010

== ENCOUNTER 2017-12-07 08:49 | Day surgery (SDC) | payer MEDICARE ==
[2017-11-26 13:24] VITALS: BMI 25.9
[~2017-12-07 08:49] MED LIST: Bupivacaine HCl 0.5%/Epinephrine 1:200,000/PF 30 ml Vial ONE; Bupivacaine/Epinephrine 0.25% 30 ML VIAL ONE; Heparin 10,000 UNITS/1 ML VIAL ONE; Lidocaine 2% 10 ML INJ ONE
[2017-12-07] MEDS ORDERED: CEFAZOLIN/Water 2 GM/20 ML SYRINGE ONE (09:23)
[2017-12-07] MEDS ORDERED: Hydrocortisone Sod Succ/PF 100 mg/2 ml Vial ONE (09:25)
[2017-12-07] MEDS ORDERED: Fentanyl 100 MCG/2 ML VIAL ONE ×2 (09:40)
--- NOTE | 2017-12-07 11:39 | OP ---
DATE OF PROCEDURE: 12/07/2017 PREOPERATIVE DIAGNOSES: Chronic kidney disease, renal transplant rejection, peritoneal dialysis kris res. POSTOPERATIVE DIAGNOSES: Chronic kidney disease, renal transplant rejection, peritoneal dialysis radha ires. PROCEDURE: Laparoscopic peritoneal dialysis catheter, double cuffed pigtail catheter. SURGEON: Dr. Konstantin Fierro ANESTHESIA: General. Local 0.5% Marcaine with epinephrine, 30 mL. FINDINGS: Omentum adhesed in the upper abdomen, omentopexy not necessary. PROCEDURE: The patient was taken to the operating room under general anesthesia in supine position, abdomen was clipped of hair, prepared with ChloraPrep, draped in routine fashion. Local anesthetic i nfiltrated into skin and subcutaneous tissue about the operative sites. Bilateral subcostal incision s made and pneumoperitoneum to 15 were obtained with Veress needle placing with a 5 port and video la paroscope inserted. Contralateral 5 port placed under laparoscopic visualization. An incision exit site performed made left lower quadrant 11 blade, incision was made periumbilical left at the counter incision. An 8 mm trocar catheter placed under laparoscopic visualization directed caudally in the subcutaneous tissue penetrating the rectus fascia tunneling and within the rectus sheath inferiorly penetrating the abdominal cavity caudally, placing the laparoscopic peritoneal dialysis catheter pigt ail catheter in into the pelvis and the internal cuff in the rectus sheath as the 8 port was removed. [place] dissector placed through the planned exit site through the counter incision, ____ the cath eter tunnel and placing the external cuff beneath the skin exit site and subcutaneous tissues approxi mated with 3-0 Monocryl, skin with subdermal 4-0 Monocryl and catheter flushed with heparinized salin e solution and cap applied. Omentum appreciated to not reach into the pelvis and omentopexy not nece ssary. Pneumoperitoneum reduced. All instruments removed and all skin incisions approximated with i nterrupted subdermal 4-0 Monocryl and DermaGlue applied. Sterile dressing applied.
== END 2017-12-07 13:00 | disposition home or self-care (01) ==
LOC: SDC 08:49
PROVIDERS: ATTEND Specialist
PROC: 0WHG43Z Insertion of Infusion Device into Peritoneal Cavity, Percutaneous Endoscopic Approach (ICD-10-PCS; principal; 2017-12-07)
DX: N18.6 End stage renal disease (principal); Z91.041 Radiographic dye allergy status; Z88.1 Allergy status to other antibiotic agents
CPT/HCPCS: J0670; J1644; J1720; J3010

== ENCOUNTER 2018-01-06 11:27 | Outpatient (CLI) | payer MEDICARE | END 2018-01-06 11:28 | disposition home or self-care (01) | LOC: BICRAD 11:27 | PROVIDERS: ATTEND Internal Medicine Nephrology | DX: N18.4 Chronic kidney disease, stage 4 (severe) (principal); I51.7 Cardiomegaly; I70.0 Atherosclerosis of aorta; I77.819 Aortic ectasia, unspecified site | CPT/HCPCS: 71046 ==

== ENCOUNTER 2018-01-26 15:23 | Outpatient (CLI) | payer MEDICARE | END 2018-01-26 15:24 | disposition home or self-care (01) | LOC: BICRAD 15:23 | PROVIDERS: ATTEND Specialist | DX: N18.6 End stage renal disease (principal) | CPT/HCPCS: 74018 ==

== ENCOUNTER → 2018-02-10 | Day surgery (SDC) | payer MEDICARE ==
[2018-02-09 17:32] VITALS: BMI 27.4
[~2018-02-10] MED LIST changes: -Bupivacaine/Epinephrine 0.25% 30 ML VIAL ONE; +CEFAZOLIN/Water 2 GM/20 ML SYRINGE ONE; +Fentanyl 100 MCG/2 ML VIAL ONE
[2018-02-10 11:19] LABS: #Eosinphils 0.3 thou/uL (0.0-0.7); #Lymphocytes 1.2 thou/uL (1.20-3.40); #Monocytes 0.5 thou/uL (0.11-0.59); #Neutrophils 3.7 thou/uL (1.40-6.50); %Basophils 0.6 % (0.0-1.0); %Eosinophils 4.6 % (0.0-10.0); %Lymphocytes 20.9 % (21.0-51.0); %Neutrophils 65.9 % (42.0-75.0); Mean Corpuscular HGB CONC 32.2 g/dL (32.0-36.0); Mean Corpuscular Hemoglobin 31.2 pg (27.0-31.0); Mean Corpuscular Volume 97.1 fL (78.0-98.0); Platelet Count 97 thou/uL (130-400); RBC Distribution Width 18.2 % (11.5-14.5); Red Blood Cell (RBC) Count 3.21 mill/uL (4.70-6.10); White Blood Cell (WBC) Count 5.6 thou/uL (4.8-10.8)
[2018-02-10 11:22] LABS: Anion Gap 12 mmol/L (10-20); BUN (Urea Nitrogen) 47 mg/dL (8.4-25.7); Calc. Creatinine Clearance 32 mL/min (70-130); Calcium 8.7 mg/dL (7.8-10.44); Carbon Dioxide 29 mmol/L (23-31); Chloride 103 mmol/L (98-107); Estimated GFR-MDRD 21; Glucose 94 mg/dL (80-115); Potassium 3.9 mmol/L (3.5-5.1); Sodium 140 mmol/L (136-145)
--- NOTE | 2018-02-10 18:25 | OP ---
DATE OF PROCEDURE: 02/10/2018 PREOPERATIVE DIAGNOSES: Radiation therapy, history of head and neck cancer, malnutrition, dysphagia. POSTOPERATIVE DIAGNOSES: Radiation therapy, history of head and neck cancer, malnutrition, dysphagia . PROCEDURE: Percutaneous endoscopic gastrostomy tube. SURGEON: Konstantin Fierro M.D. ANESTHESIA: TIVA, local 1% Xylocaine with epinephrine. PROCEDURE IN DETAIL: The patient was taken to the operating room where in supine position under heav y sedation, oropharynx was anesthetized. Endoscope placed per os under direct visualization and usin g air insufflation passed throughout the esophagus and stomach. Stomach insufflated. Good indentati on noted in left subxiphoid. I tried to place a needle through the old PEG site, but could not local ize the needle. Thus, it was placed higher in left lateral position where it easily placed percutane ously and visualized endoscopically within the gastric lumen. A stab incision was made. Trocar cath eter introduced and a snare placed around the trocar catheter and a wire introduced, grasping the wir e, bringing the endoscope and wire out the mouth. Wire connected to the feeding tube, which was then lubricated, brought down through the mouth, esophagus, stomach and secured to the abdominal wall wit h fixation device and sterile dressings applied. The feeding device secured to the tube after tailor ing it to length.
--- NOTE | 2018-02-10 19:09 | OP ---
DATE OF PROCEDURE: 02/10/2018 PREOPERATIVE DIAGNOSIS: Dysfunctional peritoneal dialysis catheter (drains one-half of the fluid adm inistered). POSTOPERATIVE DIAGNOSIS: Dysfunctional peritoneal dialysis catheter (drains one-half of the fluid a dministered). PROCEDURE: Laparoscopic revision of peritoneal dialysis catheter, placed in a sling suture relocatin g it to the right of midline. SURGEON: Konstantin Fierro MD ANESTHESIA: General. Local 0.5% Marcaine with epinephrine. FINDINGS: The patient's peritoneal dialysis catheter was lying freely in the left lower quadrant. H e had omental adhesions to the umbilical area, not reaching into the pelvis as previously appreciated laparoscopically. Catheter was not adherent, but was freely lying adjacent to some fatty tissue farhana r the sigmoid colon. Thus, it was relocated at the right of midline. PROCEDURE IN DETAIL: The patient was taken to the operating room, where under general anesthesia, ab berumen was prepared with ChloraPrep, draped in routine fashion. Peritoneal dialysis catheter was also prepped. Bilateral subcostal incisions were made laterally and pneumoperitoneum to 15 mmHg obtained with the Veress needle, replacing with a 5-port, laparoscope inserted. Contralateral 5-mm port was placed. Left lower quadrant lateral mid abdominal incision was made and a 5-port placed. Peritoneal dialysis catheter noted to be lying freely in the left lower quadrant adjacent to fatty tissue near the sigmoid colon. Omentum adherent to the umbilical area. Mesh placed in the right lower quadrant previously was intact. No hernia is evident. Catheter was not adherent. There was no fatty tissue adherent to it, but fatty tissue near the sigmoid colon. Laparoscopically using a transabdomin al fixation 0 Ethibond suture, the catheter was secured with a transabdominal fixation suture to the right pelvis. Catheter was then flushed with saline solution. Irrigant and pneumoperitoneum reduced . No other problems noted. All skin incisions were approximated with subdermal 4-0 Monocryl and Uriah maGlue applied. Catheter had been flushed with saline initially and flushed with heparinized saline solution 10 mL, 1000 units heparin per mL, indicating volume of the port.
== END ==
LOC: SDC 10:04
PROVIDERS: ATTEND Specialist
PROC: 0WWG43Z Revision of Infusion Device in Peritoneal Cavity, Percutaneous Endoscopic Approach (ICD-10-PCS; principal; 2018-02-10)
DX: T85.621A Displacement of intraperitoneal dialysis catheter, initial encounter (principal); K66.0 Peritoneal adhesions (postprocedural) (postinfection); I12.9 Hypertensive chronic kidney disease with stage 1 through stage 4 chronic kidney disease, or unspecified chronic kidney disease; N18.6 End stage renal disease; M10.9 Gout, unspecified; J45.909 Unspecified asthma, uncomplicated; T86.11 Kidney transplant rejection; Z87.891 Personal history of nicotine dependence; Z79.82 Long term (current) use of aspirin; Z79.52 Long term (current) use of systemic steroids; Z79.899 Other long term (current) drug therapy; Z88.1 Allergy status to other antibiotic agents; Z91.041 Radiographic dye allergy status; Z99.2 Dependence on renal dialysis
CPT/HCPCS: 36415; 80048; 85025; J0670; J1644; J3010

== ENCOUNTER 2018-03-17 08:49 | Day surgery (SDC) | payer MEDICARE ==
[2018-03-16 12:16] VITALS: BMI 25.2
[2018-03-17 10:17] LABS: #Basophils 0.1 thou/uL (0.0-0.2); #Eosinphils 0.2 thou/uL (0.0-0.7); #Lymphocytes 1.1 thou/uL (1.20-3.40); #Monocytes 0.4 thou/uL (0.11-0.59); #Neutrophils 2.9 thou/uL (1.40-6.50); %Basophils 1.3 % (0.0-1.0); %Eosinophils 3.6 % (0.0-10.0); %Lymphocytes 23.5 % (21.0-51.0); %Monocytes 9.1 % (0.0-10.0); %Neutrophils 62.6 % (42.0-75.0); Hemoglobin 13.3 g/dL (14.0-18.0); Mean Corpuscular HGB CONC 30.3 g/dL (32.0-36.0); Mean Corpuscular Hemoglobin 28.5 pg (27.0-31.0); Mean Corpuscular Volume 93.9 fL (78.0-98.0); Mean Platelet Volume 9.2 fL (7.4-10.4); Platelet Count 137 thou/uL (130-400); RBC Distribution Width 16.9 % (11.5-14.5); Red Blood Cell (RBC) Count 4.67 mill/uL (4.70-6.10); White Blood Cell (WBC) Count 4.7 thou/uL (4.8-10.8)
[2018-03-17 10:39] LABS: ALT (SGPT) 11 U/L (8-55); AST (SGOT) 18 U/L (5-34); Albumin 4.1 g/dL (3.4-4.8); Alkaline Phosphatase 45 U/L (40-150); Anion Gap 17 mmol/L (10-20); BUN (Urea Nitrogen) 50 mg/dL (8.4-25.7); Bilirubin, Total 0.7 mg/dL (0.2-1.2); Calc. Creatinine Clearance 27 mL/min (70-130); Calcium 9.7 mg/dL (7.8-10.44); Carbon Dioxide 27 mmol/L (23-31); Chloride 101 mmol/L (98-107); Estimated GFR-MDRD 20; Globulin 3.3 g/dL (2.4-3.5); Glucose 96 mg/dL (80-115); Protein, Total 7.4 g/dL (5.8-8.1); Sodium 141 mmol/L (136-145)
[2018-03-17] MEDS ORDERED: CEFAZOLIN/Water 2 GM/20 ML SYRINGE ONE (11:06)
[2018-03-17] MEDS ORDERED: Heparin 10,000 UNITS/1 ML VIAL ONE ×3 (11:07→12:11)
[2018-03-17] MEDS ORDERED: Bupivacaine HCl 0.5%/Epinephrine 1:200,000/PF 30 ml Vial ONE (11:07)
[2018-03-17] MEDS ORDERED: Lidocaine 2% PF Inj 2 ML VIAL ONE (11:07)
[2018-03-17] MEDS ORDERED: Hydrocortisone Sod Succ/PF 100 mg/2 ml Vial ONE (11:09)
[2018-03-17] MEDS ORDERED: Lidocaine 1% PF 5 ML VIAL ONE (11:09)
[2018-03-17] MEDS ORDERED: PROPOFOL 200 MG/20 ML VIAL ONE (11:09)
[2018-03-17] MEDS ORDERED: Glycopyrrolate 0.2 MG/ML 5 ML SYRINGE ONE (11:09)
[2018-03-17] MEDS ORDERED: PHENYLEPHRINE-NS 100 MCG/ML 10 ML SYRINGE ONE (11:09)
[2018-03-17] MEDS ORDERED: Ondansetron HCl/PF 4 MG/2 ML Vial ONE (11:09)
[2018-03-17] MEDS ORDERED: Succinylcholine Chloride 20 MG/ML 10 ml SYRINGE FS ONE (11:09)
[2018-03-17] MEDS ORDERED: Fentanyl 100 MCG/2 ML VIAL ONE (11:19)
[2018-03-17] MEDS ORDERED: HYDROcodone/Acetaminophen 5/325 mg Tablet ONE (14:00)
--- NOTE | 2018-03-17 16:07 | OP ---
DATE OF OPERATION: 03/17/2018 PREOPERATIVE DIAGNOSES: End-stage renal disease, dysfunctional peritoneal dialysis catheter, status post multiple peritoneal dialysis catheter placement and revisions, prior omentopexy, prior sling. POSTOPERATIVE DIAGNOSIS: End-stage renal disease, dysfunctional peritoneal dialysis catheter, status post multiple peritoneal dialysis catheter placement and revisions, prior omentopexy, prior sling. PROCEDURES: Laparoscopic placement of Lomeli Flex-Neck standard size PD catheter with sling suture placed and removal of old PD catheter. SURGEON: Dr. Konstantin Fierro ANESTHESIA: General. Local 0.5% Marcaine with epinephrine 30 mL mixed with 2% Xylocaine 10 mL. PROCEDURE IN DETAIL: The patient was taken to the operating room where under general anesthesia, abd omen and old catheter exiting left lower quadrant was prepared with ChloraPrep, draped in routine fas hion. Bilateral far lateral subcostal incision made through old trocar sites and pneumoperitoneum to 15 mmHg obtained with the Veress needle, replacing it with a 5 port and laparoscope inserted. Contr alateral 5 mm trocar catheter placed under laparoscopic visualization. Prior omentopexy was well fix ed. Omentum was high in the abdominal cavity and not interfere with PD catheter function. The sling suture previously placed on the PD catheter was intact. Catheter dependently in the pelvis. There was nothing wrapped around the catheter to prevent its function. Sling suture was removed, cut, and a new PD catheter inserted. The stencil device had been used to select the standard size PD catheter prior to the operation and pneumoperitoneum establishment. In his right paramedian umbilical level skin incision made and a mm port placed directed caudally through the subcutaneous tissue and the rec tus sheath visualized laparoscopically, penetrating the abdominal wall beneath the edge of the previo usly placed mesh for hernia repair. The new PD catheter Lomeli Flex-Neck catheter was placed, placi ng the internal cuff in the rectus sheath, removing the 8 mm port. A sling suture of 0 Ethibond was placed to hold the catheter in place using GraNee needle, transabdominal fixation. At this point, a stab incision made in the planned exit site right lateral abdomen lower quadrant and using the tunnel ing device placed from this exit site to the counter incision connected to the catheter pulling the c atheter out placed an external cuff beneath the skin exit site. Subcutaneous tissues of counte rincision approximated with 4-0 Monocryl, skin with subdermal 4-0 Monocryl and then at this point, th e catheter was flushed with saline solution and visualized laparoscopically, it flushed well without obstruction. Then proceeded to reduce the pneumoperitoneum and then the catheter was connected to a saline and 500 mL saline running to the abdominal cavity and then placed dependently and drained at l east 300-400. The catheter was then flushed with heparinized saline solution and after Dermabond, st erile dressings applied. Pneumoperitoneum had been reduced and all skin incisions approximated with interrupted subdermal 4-0 Monocryl and DermaGlue applied. The old PD catheter was then dissected free, dissecting both cuffs from the subcutaneous tissue remov ing the catheter intact placing a superficial gauze dressing . The patient tolerated the proced ure well. Local anesthetic mixture used in the areas of dissection.
--- NOTE | 2018-03-21 20:36 | EKG ---
Test Reason : PREOP Blood Pressure : / mmHG Vent. Rate : 077 BPM Atrial Rate : 077 BPM P-R Int : 352 ms QRS Dur : 166 ms QT Int : 474 ms P-R-T Axes : 034 -69 010 degrees QTc Int : 536 ms Sinus rhythm with 1st degree A-V block Right bundle branch block Left anterior fascicular block Bifascicular block Abnormal ECG When compared with ECG of 26-NOV-2017 14:17, Left anterior fascicular block is now Present T wave inversion more evident in Anterior leads Confirmed by Fe ORTIZ ([id number]) on 03/21/2018 8:36:04 PM Referred By: LIAM Confirmed By:Fe ORTIZ
== END 2018-03-17 14:45 | disposition home or self-care (01) ==
LOC: SDC 08:49
PROVIDERS: ATTEND Specialist
PROC: 0WHG43Z Insertion of Infusion Device into Peritoneal Cavity, Percutaneous Endoscopic Approach (ICD-10-PCS; principal; 2018-03-17)
DX: T82.49XA Other complication of vascular dialysis catheter, initial encounter (principal); N18.6 End stage renal disease; Z79.52 Long term (current) use of systemic steroids; Z79.899 Other long term (current) drug therapy; Z88.1 Allergy status to other antibiotic agents; Z91.041 Radiographic dye allergy status; Z99.2 Dependence on renal dialysis; Z98.890 Other specified postprocedural states
CPT/HCPCS: 80053; 85025; 93005; 93010; J0670; J1644; J1720; J2001; J2405; J2704; J3010

== ENCOUNTER 2018-05-17 07:43 | Day surgery (SDC) | payer MEDICARE ==
--- NOTE | 2018-05-13 16:05 | HP ---
HISTORY OF PRESENT ILLNESS: Mr. Gonsalves is a 68-year-old male patient, end-stage renal disease, fol lowed by [facility] on [address] Hinson. He has a functioning peritoneal dialysis stacey ter that I placed. He has a functioning left upper arm fistula that has several aneurysms. Plan is to repair those aneurysms as an outpatient under regional anesthesia. He understands the risk and be nefits and consents. ALLERGIES: CIPRO and IODINE. ALCOHOL: One beer a day. TOBACCO: None. MEDICATIONS: Aranesp 100 mcg as directed for myelodysplastic syndrome, Crestor 5 mg at bedtime, dicl ofenac p.r.n. arthritis, probiotic p.r.n., tramadol as needed, Tums 5 mg 2 tabs a day, vitamin D week ly, hydralazine 100 mg t.i.d., Flomax 0.4 mg a day, fish oil daily, prednisone 5 mg a day, tacrolimus 1 mg 2 tabs b.i.d., atenolol 1/2 tablet at bedtime, sodium bicarbonate 650 mg b.i.d., allopurinol 30 0 mg half tablet daily, CPAP at bedtime, nifedipine 60 mg XL morning, 30 mg XL at bedtime, Calcitriol daily, furosemide 40 mg a day. The patient has a partially functioning renal transplant that has failed. He is on peritoneal dialys is currently. PAST SURGICAL HISTORY: Umbilical hernia repair with mesh, renal transplant, left upper arm fistula 2 , renal transplant in 2002. Subsequent transplant rejection, currently on peritoneal dialysis. U mbilical hernia repair performed in 2010. Arthroscopy on the right in 1982, right shoulder repair , laparoscopic peritoneal dialysis catheter 11/2017. PAST MEDICAL HISTORY: Myelodysplastic syndrome, sleep apnea on CPAP at bedtime, chronic kidney disea se with renal transplant recently rejected, now on peritoneal dialysis. Sleep apnea, hypertension. The patient is followed by Dr. Harris. He had a negative cardiac stress test in the past, normal e chocardiograms. Colonoscopy 2 years ago, unremarkable. PHYSICAL EXAMINATION: VITAL SIGNS: Weight 194 pounds, 74 inches 160/66, 79, 98.4 degrees. HEENT: Unremarkable. LUNGS: Clear to auscultation. CARDIAC: Regular rate and rhythm without murmur or gallop. ABDOMEN: Soft. Peritoneal dialysis catheter in place. Laparoscopic wounds well healed. EXTREMITIES: Unremarkable. Left upper extremity primary fistula with aneurysms above the antecubita l fossa and more proximally. ASSESSMENT AND PLAN: Aneurysms, left upper arm fistula on peritoneal dialysis. Plan aneurysm repair as an outpatient under regional anesthesia, TIVA. He understands risks and benefits and consents.
[2018-05-14 09:40] VITALS: BMI 24.1
[2018-05-17] MEDS ORDERED: CEFAZOLIN 2 GM/50 ML BAG ONE (09:01)
[2018-05-17 09:04] LABS: #Eosinphils 0.2 thou/uL (0.0-0.7); #Lymphocytes 1.2 thou/uL (1.20-3.40); #Monocytes 0.4 thou/uL (0.11-0.59); #Neutrophils 2.7 thou/uL (1.40-6.50); %Basophils 0.8 % (0.0-1.0); %Eosinophils 4.5 % (0.0-10.0); %Lymphocytes 26.9 % (21.0-51.0); %Monocytes 8.5 % (0.0-10.0); %Neutrophils 59.3 % (42.0-75.0); Hemoglobin 13.1 g/dL (14.0-18.0); Mean Corpuscular HGB CONC 32.5 g/dL (32.0-36.0); Mean Corpuscular Hemoglobin 31.4 pg (27.0-31.0); Mean Corpuscular Volume 96.6 fL (78.0-98.0); Mean Platelet Volume 7.9 fL (7.4-10.4); Platelet Count 142 thou/uL (130-400); RBC Distribution Width 18.1 % (11.5-14.5); Red Blood Cell (RBC) Count 4.19 mill/uL (4.70-6.10); White Blood Cell (WBC) Count 4.5 thou/uL (4.8-10.8)
[2018-05-17] MEDS ORDERED: Fentanyl 100 MCG/2 ML VIAL ONE ×2 (09:23→10:09)
[2018-05-17] MEDS ORDERED: Midazolam HCl 2 mg/2 ml Vial ONE ×2 (09:23→10:09)
[2018-05-17 09:31] LABS: Anion Gap 14 mmol/L (10-20); BUN (Urea Nitrogen) 65 mg/dL (8.4-25.7); Calc. Creatinine Clearance 20 mL/min (70-130); Calcium 9.7 mg/dL (7.8-10.44); Carbon Dioxide 24 mmol/L (23-31); Chloride 107 mmol/L (98-107); Estimated GFR-MDRD 14; Glucose 82 mg/dL (80-115); Potassium 4.2 mmol/L (3.5-5.1); Sodium 141 mmol/L (136-145)
[2018-05-17] MEDS ORDERED: Heparin 5,000 UNITS/ML VIAL ONE (10:08)
[2018-05-17] MEDS ORDERED: Bupivacaine HCl 0.5%/Epinephrine 1:200,000/PF 30 ml Vial ONE (10:08)
[2018-05-17] MEDS ORDERED: Lidocaine 2% PF 5 ML VIAL ONE ×2 (10:08→10:14)
[2018-05-17] MEDS ORDERED: Protamine Sulfate 50 MG/5 ML VIAL ONE (10:08)
[2018-05-17] MEDS ORDERED: Propofol 500 MG/50 ML VIAL ONE (10:10)
[2018-05-17] MEDS ORDERED: Ketamine 50 MG/ML (10ML VIAL) ONE (10:10)
[2018-05-17] MEDS ORDERED: PROPOFOL 200 MG/20 ML VIAL ONE (14:04)
[2018-05-17] MEDS ORDERED: ePHEDrine/0.9% NaCl/PF SYRINGE 50 mg/10 ml ONE (14:04)
[2018-05-17] MEDS ORDERED: Heparin 10,000 UNITS/ 10 ML VIAL ONE (14:04)
--- NOTE | 2018-05-17 14:39 | OP ---
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 PROCEDURE PERFORMED: Repair of two large aneurysms, left upper arm cephalic vein fistula. ANESTHESIA: Regional TIVA local 0.5% Marcaine with epinephrine 30 mL mixed Xylocaine 10 mL. FINDINGS: The patient had two very large aneurysms in left upper extremity, the more distal one just above the antecubital fossa was very arteriosclerotic calcified, requiring essential endarterectomy. DESCRIPTION OF PROCEDURE: The patient was taken to the operating room, where under regional anesthesia and intravenous sedation, left upper extremity was prepared with ChloraPrep and draped in routine fashion. A long incision was made over the two aneurysms of the left upper arm cephalic vein AV fistula. This was carried down through the skin and subcutaneous tissue. Aneurysm was dissected free circumferentially. The more proximal one had a smaller neck, but was very large and it had feeding branches, which were divided between 3-0 silk ties and large clips, it was mobilized. The lower one was mobilized similarly. The patient was given 6000 units of heparin intravenously. Proximal distal control was gained with vascular clamps. This large aneurysm proximally was excised and then closed imbricating with continuous to-and-fro sutures of 4-0 Prolene. The distal aneurysmal dilatation was likewise excised and imbricated. Vascular control was released. There was good flow in the fistula. The patient given 50 mg of protamine. Subcutaneous tissues were approximated with 3-0 Monocryl, skin with césar. Sterile dressing applied. Job ID: [id number]
[2018-05-18] MEDS ORDERED: Bupivacaine HCl 0.5%/Epinephrine 1:200,000/PF 30 ml Vial ONE (13:53)
== END 2018-05-17 13:45 | disposition home or self-care (01) ==
LOC: SDC 07:43
PROVIDERS: ATTEND Specialist
PROC: 05BF0ZZ Excision of Left Cephalic Vein, Open Approach (ICD-10-PCS; principal; 2018-05-17)
DX: T82.898A Other specified complication of vascular prosthetic devices, implants and grafts, initial encounter (principal); I12.0 Hypertensive chronic kidney disease with stage 5 chronic kidney disease or end stage renal disease; N18.6 End stage renal disease; D46.9 Myelodysplastic syndrome, unspecified; G47.30 Sleep apnea, unspecified; M10.9 Gout, unspecified; J45.909 Unspecified asthma, uncomplicated; Z87.891 Personal history of nicotine dependence; Z79.52 Long term (current) use of systemic steroids; Z79.82 Long term (current) use of aspirin; Z79.899 Other long term (current) drug therapy; Z88.1 Allergy status to other antibiotic agents; Z91.041 Radiographic dye allergy status; Z94.0 Kidney transplant status; Z99.2 Dependence on renal dialysis; Z99.89 Dependence on other enabling machines and devices
CPT/HCPCS: 80048; 85025; J0670; J1644; J2001; J2250; J2704; J2720; J3010

== ENCOUNTER 2018-05-18 13:51 | Outpatient (CLI) | payer MEDICARE ==
--- NOTE | 2018-05-18 14:19 | RAD ---
TWO VIEWS RIGHT KNEE: Date: 05-18-18 Provided Clinical History: Right knee effusion. FINDINGS: There is no evidence for fracture or other acute osseous abnormality. Alignment appears anatomic. Patsy nt spaces appear preserved. Vascular calcifications are noted. Nonspecific prepatellar soft tissue pr ominence. IMPRESSION: No evidence for an acute osseous abnormality or significant arthropathy. POS: C
--- NOTE | 2018-05-18 14:21 | RAD ---
RIGHT HIP RADIOGRAPHS TWO VIEWS: Date: 05-18-18 Provided Clinical History: Right hip pain. FINDINGS: There is no evidence for fracture or other acute osseous abnormality. Superior right hip joint space narrowing is noted with associated subchondral sclerosis. Vascular calcifications are seen. Peritonea l dialysis catheter overlies the pelvis. No lytic or blastic lesions were noted. IMPRESSION: Degenerative arthrosis of the right hip. POS: C
== END 2018-05-18 13:52 | disposition home or self-care (01) ==
LOC: BICRAD 13:51
PROVIDERS: ATTEND Internal Medicine Rheumatology
DX: M25.551 Pain in right hip (principal); M17.11 Unilateral primary osteoarthritis, right knee; M25.461 Effusion, right knee; M16.11 Unilateral primary osteoarthritis, right hip

== ENCOUNTER 2018-11-18 01:37 | Outpatient (CLI) | payer MEDICARE ==
[2018-11-18 15:30] LABS: #Eosinphils 0.2 thou/uL (0.0-0.7); #Lymphocytes 1.2 thou/uL (1.20-3.40); #Monocytes 0.4 thou/uL (0.11-0.59); #Neutrophils 4.5 thou/uL (1.40-6.50); %Basophils 0.2 % (0.0-1.0); %Eosinophils 3.2 % (0.0-10.0); %Lymphocytes 18.9 % (21.0-51.0); %Monocytes 6.5 % (0.0-10.0); %Neutrophils 71.3 % (42.0-75.0); Hemoglobin 11.9 g/dL (14.0-18.0); Mean Corpuscular HGB CONC 33.8 g/dL (32.0-36.0); Mean Corpuscular Hemoglobin 34.7 pg (27.0-31.0); Mean Platelet Volume 7.3 fL (7.4-10.4); Platelet Count 143 thou/uL (130-400); RBC Distribution Width 12.9 % (11.5-14.5); Red Blood Cell (RBC) Count 3.43 mill/uL (4.70-6.10); White Blood Cell (WBC) Count 6.3 thou/uL (4.8-10.8)
[2018-11-18 15:31] LABS: Bilirubin Negative (Negative); Blood, Urine Negative (Negative); Clarity CLEAR (Clear); Glucose, Urine (Dipstick) Negative (Negative); Leukocyte Negative (Negative); Nitrite Negative (Negative); Protein, Urine (Dipstick) 30 mg/dL (Neg-Trace); Specific Gravity, Urine 1.017 (1.002-1.036); Urobilinogen 0.2 mg/dL (0.2-1.0)
[2018-11-18 15:49] LABS: Anion Gap 18 mmol/L (10-20); BUN (Urea Nitrogen) 93 mg/dL (8.4-25.7); Calc. Creatinine Clearance 0 mL/min (70-130); Calcium 9.7 mg/dL (7.8-10.44); Carbon Dioxide 23 mmol/L (23-31); Chloride 100 mmol/L (98-107); Estimated GFR-MDRD 14; Glucose 79 mg/dL (80-115); Potassium 4.4 mmol/L (3.5-5.1); Sodium 137 mmol/L (136-145)
[2018-11-18 16:14] LABS: RBC/HPF None Seen HPF (0-3); WBC/HPF 0-3 HPF (0-3)
[2018-11-18 16:15] LABS: Bacteria/HPF None Seen HPF (None Seen); Hyaline Casts/LPF NONE SEEN LPF (0-3 Hyaline); Squamous Epithelial 0-3 HPF (0-3)
== END 2018-11-18 01:38 | disposition home or self-care (01) ==
LOC: LABBT 01:37
PROVIDERS: ATTEND Orthopaedic Surgery
DX: Z01.818 Encounter for other preprocedural examination (principal); M16.11 Unilateral primary osteoarthritis, right hip
CPT/HCPCS: 80048; 81001; 85025; 85610; 87081; 93005; 93010

== ENCOUNTER 2018-11-18 15:30 | Inpatient (IN) | payer MEDICARE ==
[2018-11-18 13:22] VITALS: BMI 24.9
--- NOTE | 2018-11-25 08:52 | HP ---
HISTORY OF PRESENT ILLNESS: The patient is a 68-year-old male with chronic renal failure, currently on peritoneal dialysis due to failure of previous kidney transplant. He has developed progressive pain in his right hip radiating toward his right knee without injury. He has had progressive symptoms despite rest, restriction of activities, and previous injections. The pain is now interfering with day-to-day activities including walking, getting dressed, and sleeping. PAST MEDICAL HISTORY: As noted above. The patient has also has history of hypertension, gout, asthma, hearing loss, and renal failure. He had a kidney transplant in 2002, which has subsequently failed and is currently on peritoneal dialysis under the direction of Dr. Hinson. He has been seen and cleared for surgery by Dr. Hinson. CURRENT MEDICATIONS: Include, 1. Low-dose aspirin. 2. Atenolol. 3. Calcitriol. 4. Crestor. 5. . 6. Multivitamins. 7. Hydralazine. 8. Flomax. 9. Lasix. 10. Prednisone. 11. Mycophenolate. 12. . 13. Allopurinol. ALLERGIES: HE IS ALLERGIC TO IV CONTRAST AND CIPRO. FAMILY HISTORY: Otherwise unremarkable. SOCIAL HISTORY: Otherwise unremarkable. REVIEW OF SYSTEMS: Otherwise unremarkable. PHYSICAL EXAMINATION: GENERAL: Reveals a healthy-appearing male. HEENT: Unremarkable. NECK: Supple. CHEST: Clear. HEART: Regular rate and rhythm. ABDOMEN: Soft, nontender. RECTAL: Deferred. GENITAL: Deferred. EXTREMITIES: Pertinent findings with the right lower extremity. There is tenderness of the greater trochanter and anterior hip. There is a right antalgic gait. There is pain at extremes with hip motion. There is a 3 x 3 cm cystic mass over the anterior lateral joint line of the left knee, which appears to be lateral parameniscal cyst. Range of motion 0 to 150 degrees. There is minimal tenderness. There is no crepitus or instability. Pulses are 2+. DIAGNOSTIC STUDIES: X-rays of the right knee reveal lateral joint space narrowing. X-rays of the right hip reveal severe DJD with no joint space remaining and some collapse of the femoral head consistent with possible avascular necrosis and some vascular calcifications. IMPRESSION: 1. 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 2. Degenerative arthritis of right knee. 3. Chronic renal failure, on peritoneal dialysis. 4. History of hypertension. PLAN: Right total hip replacement. I think most of his knee pain is coming from his hip, although he does have arthritis in his hip and his knee. The nature of the surgery, length of recovery, and potential complications such as infection, loss of motion, incomplete relief, neurovascular injury, thromboembolic phenomena, leg-length discrepancy, possible transfusion, and need for revision have been discussed in detail. Job ID: [id number]
[2018-11-30] MEDS ORDERED: Tranexamic Acid 1,000 MG/10 ML VIAL ONE ×2 (06:17→09:07)
[2018-11-30] MEDS ORDERED: Fentanyl 100 MCG/2 ML VIAL ONE ×3 (06:19→10:01)
[2018-11-30] MEDS ORDERED: Midazolam HCl 2 mg/2 ml Vial ONE (06:19)
[2018-11-30] MEDS ORDERED: Vancomycin HCl 1.5 GM in Sodium Chloride 0.9% 250 ML 300 ML IVPB SCH ×2 (06:30→09:39)
[2018-11-30] MEDS ORDERED: Ondansetron PF 4 MG/2 ML Vial ONE ×2 (06:51→14:08)
[2018-11-30] MEDS ORDERED: Promethazine HCl 25 MG SUPP PR PRN (07:00)
[2018-11-30] MEDS ORDERED: Naloxone HCl 0.4 mg/ml Vial IVP PRN (07:00)
[2018-11-30] MEDS ORDERED: Naloxone HCl 0.4 mg/ml Vial IV PRN (07:00)
[2018-11-30] MEDS ORDERED: traMADol HCl 50 MG TAB PO PRN ×2 (07:00→09:39)
[2018-11-30] MEDS ORDERED: Promethazine HCl 25 MG/ML VIAL IM PRN (07:00)
[2018-11-30] MEDS ORDERED: Bupivacaine 0.25% 10 ML VIAL EPIDURAL PRN (07:00)
[2018-11-30] MEDS ORDERED: Zolpidem Tartrate 5 MG TAB PO PRN ×2 (07:00→09:39)
[2018-11-30] MEDS ORDERED: Hydrocerin (Eucerin) Cream 120 gm Jar TOP PRN (07:00)
[2018-11-30] MEDS ORDERED: diphenhydrAMINE 25 MG CAP PO PRN ×2 (07:00→09:39)
[2018-11-30] MEDS ORDERED: diphenhydrAMINE 50 MG/ML VIAL IVP PRN (07:00)
[2018-11-30] MEDS ORDERED: HYDROcodone/Acetaminophen 5/325 mg Tablet PO PRN ×2 (07:00)
[2018-11-30] MEDS ORDERED: diphenhydrAMINE 50 MG/ML VIAL IM PRN (07:00)
[2018-11-30] MEDS ORDERED: Ondansetron HCl/PF 4 MG/2 ML Vial IVP PRN (07:40)
[2018-11-30] MEDS ORDERED: Bupivacaine/Epinephrine 0.25% 30 ML VIAL ONE (08:50)
[2018-11-30] MEDS ORDERED: Tranexamic Acid 1,000 MG in Sodium Chloride 0.9% 100 ML IVPB SCH ×2 (09:15→10:30)
--- NOTE | 2018-11-30 09:30 | RAD ---
Exam:Right hip 2 views HISTORY: Status post arthroplasty. COMPARISON: 05/18/2018 FINDINGS: Findings compatible with recent right hip arthroplasty. Near anatomic alignment. IMPRESSION: Right hip arthroplasty. Expected postoperative changes.
[2018-11-30] MEDS ORDERED: Fentanyl 100 MCG/2 ML VIAL SLOW IVP PRN ×2 (09:39)
[2018-11-30] MEDS ORDERED: HYDROcodone/Acetaminophen 10/325 mg Tablet PO PRN ×2 (09:39)
[2018-11-30] MEDS ORDERED: Sodium Chloride 0.9% 1,000 ML IV SCH (09:39)
[2018-11-30] MEDS ORDERED: Ondansetron PF 4 MG/2 ML Vial IVP PRN (09:39)
[2018-11-30] MEDS ORDERED: Ergocalciferol 1.25 MG(50,000 UNITS) CAP PO SCH (09:39)
[2018-11-30] MEDS ORDERED: Promethazine HCl 25 MG/ML VIAL SLOW IVP PRN (09:39)
[2018-11-30] MEDS ORDERED: [UNRECOGNIZED DRUG - OTHER] IJ SCH (09:39)
[2018-11-30] MEDS ORDERED: Tacrolimus 1 MG CAP PO SCH ×2 (09:39→21:00)
[2018-11-30] MEDS ORDERED: [UNRECOGNIZED DRUG - OTHER] SC SCH (11:15)
[2018-11-30] MEDS: CEFAZOLIN 2 GM in Premix Bag 1 BAG IVPB SCH ×2 (11:25→18:24)
--- NOTE | 2018-11-30 11:26 | OP ---
DATE OF PROCEDURE: 11/30/2018 This is Joce Ashford PA-C dictating a report for Woo Nino MD. PREOPERATIVE DIAGNOSIS: End-stage bicompartmental osteoarthritis, right hip. POSTOPERATIVE DIAGNOSIS: End-stage bicompartmental osteoarthritis, right hip. PROCEDURE: Press-fit right total hip arthroplasty. SURGEON: Woo Nino MD JAZZ SINGER: Joce Ashford PA-C COMPONENTS USED: Wallace Accolade II size 8 press-fit hip stem with a Rl Tritanium hemispherical size 62 mm cluster acetabular press-fit shell, 10 degree polyethylene fixed bearing insert, and a V40 metallic femoral head with a standard offset. ESTIMATED BLOOD LOSS: 300. FINDINGS: End-stage severe degenerative bicompartmental disease, [id number] arthrosis, periarticular osteophyte formation, large serous effusion, hypertrophic synovium and capsule. INPUT: 900 mL of lactated Ringer's. OUTPUT: 1100 mL of clear yellow urine. DRAINS: None. SPECIMENS: None. COMPLICATIONS: None. COUNTS: Correct. INDICATION FOR SURGERY: Dwain is a 68-year-old white male, who has had progressive right hip, groin, and thigh pain and problem with standing and walking for the last 5 to 7 years. He has failed conservative management and elected to proceed with total hip arthroplasty as definitive treatment of his pain. PROCEDURE IN DETAIL: After informed consent was obtained in the preoperative holding area, the patient was taken to the operative suite where general anesthesia was induced. The patient was then positioned in the lateral decubitus position. The hip was then prepped and draped in usual sterile fashion. The patient received preoperative antibiotics. Prior to incision, time-out was called and all members of the surgical team agreed upon site, surgeon, and patient. After this, a longitudinal incision was made directly over the trochanter, noted by palpation extending 2 fingerbreadths above and below the trochanter. The deeper subcutaneous layer was undermined with Bovie electrocautery. The iliotibial band was encountered and incised sharply and the plane below this was developed bluntly. A Charnley retractor was placed to hold this opened. The lateral aspect of the trochanter and the abductor muscles were encountered and then reflected anteriorly off the trochanter using Bovie electrocautery. Once this was completed, the anterior capsule was then encountered and identified and copious capsulotomy was carried out, exposing the femoral neck and head. Dislocation maneuver was then performed and an in situ provisional neck cut was then made using the oscillating saw. Attention was then turned to acetabular preparation. Sequential reaming was carried out up to the appropriate diameter and a trial was then malleted into place with good firm resistance and no pullout. The permanent acetabular shell was then malleted squarely into place, as was the appropriate liner. Once completed, the wound was copiously irrigated and attention was then turned to femoral preparation. Flexion and external rotation were performed of the exposed thigh and femoral elevators were then placed at the proximal aspect of the wound. Canal finder was used to establish the length of the canal and sequential reaming was carried out, followed by broaching. Once the appropriate stability was established with the trial broaches with flexion, extension and rotational stability, we did trial with neutral and 2 mm offset incremental necks. Once the appropriate size was decided upon, with good stability noted with flexion, extension, internal and external rotation and shuck being negative, we removed the femoral trial broach and malletted into place the permanent prosthesis with good firm fit, which was also stable to rotation. Again, the hip felt very stable to flexion, extension, internal and external rotation. Leg lengths appeared near anatomic clinically and we were quite happy with prosthesis placement. Copious irrigation was then carried out through the entirety of the wound. Primary closure of the abductors was accomplished with interrupted #2 Vicryl [id number] stitches and the IT band was then closed with interrupted #2 Vicryl, oversewn with a #2 running barbed Quill stitch. Subcutaneous fascia was closed with running barbed Quill stitch and a subcuticular Monocryl barbed Quill stitch was used for skin closure and augmented with skin cement. A sterile dressing was applied. The procedure was terminated without any complication. All counts were correct. The patient was awakened in the operative suite and taken to the recovery room in stable condition. Job ID: [id number] [facility]
[2018-11-30] MEDS: Acetaminophen 325 MG TAB PO PRN (11:59)
[2018-11-30] MEDS ORDERED: hydrALAZINE 25 MG TAB PO PRN (13:24)
[2018-11-30] MEDS ORDERED: Lidocaine 1% PF 5 ML VIAL ONE (14:08)
[2018-11-30] MEDS ORDERED: PROPOFOL 200 MG/20 ML VIAL ONE (14:08)
[2018-11-30] MEDS ORDERED: Glycopyrrolate 0.2 MG/ML 5 ML SYRINGE ONE (14:08)
[2018-11-30] MEDS ORDERED: Rocuronium Bromide 10 MG/ML (10ML VIAL) ONE (14:08)
[2018-11-30] MEDS ORDERED: ePHEDrine 50 MG/ML VIAL ONE (14:08)
[2018-11-30] MEDS ORDERED: Phenylephrine HCL 10 MG/ML VIAL ONE (14:08)
[2018-11-30] MEDS: hydrALAZINE 25 MG TAB PO SCH ×2 (15:10→19:39)
[2018-11-30] MEDS: traMADol HCl 50 MG TAB PO PRN (15:20)
--- NOTE | 2018-11-30 17:19 | CON ---
DATE OF CONSULTATION: PRIMARY CARE PHYSICIAN: Jacques Whyte MD MULTI PUNCH OPERATOR: Alberto Deleon MD REASON FOR ADMISSION: An elective right total hip replacement. HISTORY OF PRESENT ILLNESS: Mr. Gonsalves is a pleasant 68-year-old gentleman, who has a history of end-stage renal disease on peritoneal dialysis. He also has hypertension and gout. He was admitted for a right total hip replacement due to end-stage osteoarthritis of the hip. Currently, he is postop and has more or less no complaints other than some mild pain at the surgery site, which was done today. He says the pain is about a 6/10 and also notes of some nausea that happened shortly after surgery, but he says this is getting better now. Otherwise, he has no complaints. He denies chest pain or shortness of breath. No abdominal pain, etc. No leg pain other than the hip. REVIEW OF SYSTEMS: All systems were reviewed and are negative except for that mentioned in the history of present illness. PAST MEDICAL HISTORY: Significant for end-stage renal disease on peritoneal dialysis, hypertension, gout, and asthma. He says he is pretty much outgrown this. PAST SURGICAL HISTORY: He has had a kidney transplant back in 2002. Also, has a history of an incisional hernia repair, right shoulder surgery repair, right knee arthroplasty, ventricular hernia repair, PD catheter removal and replacement, and an AV fistula repair. ALLERGIES: TO CIPROFLOXACIN AND IV CONTRAST WELL RED DYE. SOCIAL HISTORY: He is a former smoker. He quit back in 1977. He is retired. He is , has one son and two daughters as well as six grandchildren. Code status is full code. FAMILY HISTORY: Significant for brother, who had hypertension. Father, cerebrovascular disease. Mother had congestive heart failure. CURRENT MEDICATIONS: Include; 1. Tramadol 50 mg three times a day as needed. 2. Flomax 0.4 mg p.o. daily. 3. Prograf 2 mg twice daily. 4. Sodium bicarbonate 650 mg twice daily. 5. Crestor 10 mg daily. 6. Prednisone 5 mg daily. 7. MiraLAX 17 g as needed. 8. Procardia XL 90 mg daily. 9. Magnesium oxide 400 mg daily. 10. Loratadine 10 mg as needed. 11. Lactobacillus one capsule daily. 12. Hydralazine 100 mg t.i.d. 13. Vitamin D2 of 50,000 units as directed. 14. Calcitriol 0.25 mcg daily. 15. Aspirin 81 mg daily. 16. Allopurinol 300 mg p.o. daily. 17. Tylenol 1000 mg q.6 hours as needed. PHYSICAL EXAMINATION: GENERAL: He is alert and oriented. He appears to be in no acute distress. VITAL SIGNS: Stable with a blood pressure 122/57, heart rate 85, respiratory rate of 16, and temperature is 97.3. HEENT: Pupils are equal, round, and reactive to light and accommodation. Throat, there is no erythema. No exudates. NECK: No adenopathy. No bruits. LUNGS: Clear to auscultation. There is no wheezing. No rales. No rhonchi. CARDIOVASCULAR: He has a normal S1 and S2 possibly noted an S3. He does have a grade 2/6 systolic murmur, which has occurred over the entire precordium radiating into the axilla. ABDOMEN: Soft. It is nontender and nondistended. Positive for bowel sounds. There is no rebound. No guarding. No organomegaly. EXTREMITIES: There is no clubbing or cyanosis. No edema. No joint effusions. SKIN AND INTEGUMENT: No skin changes. No rash. NEUROLOGIC: Grossly nonfocal. LAB RESULTS: He had blood work done on 11/18/2018, which was reviewed and was essentially negative except for a mild macrocytic anemia. He also had an EKG done around that same time, showing a sinus rhythm, this rate was 59 with a right bundle-branch block. ASSESSMENT AND PLAN: 1. This is a pleasant 68-year-old gentleman, who is being admitted for an elective right total hip replacement. He is clinically stable with regard to hypertension. We will restart his home medications including the hydralazine and nifedipine and consider hydralazine as needed for p.r.n. elevated blood pressure. We will avoid clonidine given his bradycardia. 2. Gout. Continue allopurinol. 3. History of asthma. We will have DuoNebs p.r.n. available. 4. Deep venous thrombosis and gastrointestinal prophylaxis. We will leave this up to the discretion of Orthopedic Surgery. Job ID: [id number]
[2018-11-30] MEDS ORDERED: Sevelamer Carbonate 800 MG TAB PO PRN (19:05)
[2018-11-30] MEDS: Sodium Bicarbonate Tab 325 MG TAB PO SCH (19:39)
[2018-11-30] MEDS: Ferrous Gluconate 324 MG TAB PO SCH (19:39)
[2018-11-30] MEDS: Senokot S 8.6-50 MG TAB PO SCH (19:39)
[2018-11-30] MEDS: Aspirin Chewable 81 MG TAB PO SCH (19:39)
[2018-11-30] MEDS: Ondansetron PF 4 MG/2 ML Vial IVP PRN (19:53)
--- NOTE | 2018-11-30 22:05 | CON ---
DATE OF CONSULTATION: HISTORY OF PRESENT ILLNESS: Mr. Gonsalves is a 68-year-old white male with ESRD, currently on peritoneal dialysis and he underwent right total hip arthroplasty. He tolerated said procedure. We are now consulted for his maintenance peritoneal dialysis. Please note this patient is status post failed renal transplant. REVIEW OF SYSTEMS: Positive for right hip joint pain. No nausea, no vomiting. Appetite fair. Energy level is fair. No headache. No diplopia. No fever or chills. No dysuria. No hematochezia. No melena. No hematemesis. No headache. No chest pain. No shortness of breath. Occasional joint pains. No new skin rash. HOME MEDICATIONS: Include: 1. Nifedipine 90 mg XL tablet once daily. Magnesium oxide 400 mg daily. 2. Allopurinol 300 mg half a tablet daily. 3. Calcitriol 0.25 mcg p.o. daily. 4. Aspirin 81 mg q.a.m.-to be increased to 2 tabs daily. 5. Prednisone 5 mg daily. 6. Tamsulosin 0.4 mg one tablet daily. 7. Tacrolimus. 8. Prograf 1 mg one tablet daily. 9. Crestor 10 mg tablet at bedtime. PAST MEDICAL HISTORY: 1. ESRD-secondary to a failed renal transplant, currently on peritoneal dialysis. 2. Longstanding hypertension. 3. History of gout. 4. History of hypothyroidism. 5. Depression. 6. Chronic anemia from chronic renal failure secondary from myelodysplastic syndrome. 7. Hypertension. 8. 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 PAST SURGICAL HISTORY: Status post umbilical hernia repair, status post upper and lower GI endoscopy, status post AV fistula placement, status post cuffed dialysis catheter placement, status post right shoulder surgery, status post renal biopsy of [place] kidney, status post failed cadaveric renal transplant, status post PD catheter placement recently, status post right he arthroplasty, status post renal allograft biopsy. SOCIAL HISTORY: The patient lives in [place]. He is , 3 children. 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 Smoked for 8 years 1 pack a day. Alcohol, occasional. No IV drug abuse. Status post blood transfusion. Education, finished college. FAMILY HISTORY: No family history of ESRD. ALLERGIES: CIPRO AND CONTRAST. TRAUMA: None. IMMUNIZATION: Up-to-date. HOSPITALIZATIONS: Please see past medical history. PHYSICAL EXAMINATION: VITAL SIGNS: Blood pressure is noted at 147/69, heart rate 87, respiratory rate 16, temperature 97.6, pulse ox 100 percent. GENERAL: Noted to be awake, alert, comfortable, not in overt distress. SKIN: Adequate turgor. HEENT: Pinkish conjunctivae, anicteric sclerae. NECK: No neck mass. No carotid bruits. No JVD. CHEST: No deformities. LUNGS: Clear breath sounds. HEART: Normal sinus rhythm. No murmur, no gallops or rubs. ABDOMEN: Globular, soft, nontender. No masses. Positive for bowel sounds. Negative for epigastric bruits. Positive for PD catheter. EXTREMITIES: No edema. No deformities. Limited range of motion on the right hip joint. NEUROLOGIC: Awake, oriented to 3 spheres. Moving all extremities. No tremors. No asterixis. LABORATORY DATA: November 18, 2018, white count 6.3, hemoglobin 11.9, hematocrit 35.3. Sodium 137, potassium 4.4, chloride 100, carbon dioxide 23, BUN 93, creatinine 4.1, glucose 79, calcium 9.7. ASSESSMENT AND PLAN: 1. Chronic anemia-we will start Epogen once the hemoglobin is less than 10. For the moment, continue current management. 2. End-stage renal disease, stable. Continue current continuous cyclic peritoneal dialysis regimen of 10.5 hours using alternating 2.5% and 1.5% peritoneal dialysis solution. 3. Status post cadaveric renal transplant-failed renal transplant. He is currently on prednisone 5 mg tablet once daily and tacrolimus at 1 mg tablet daily. This is being slowly tapered. 4. Right hip joint degenerative joint disease-status post right hip arthroplasty. Surgery is following, doing well. 5. Recheck basic metabolic profile and CBC in a.m. Job ID: [id number]
[2018-11-30] MEDS: fentaNYL Citrate/PF 500 MCG, Bupivacaine 10 ML in Sodium Chloride 0.9% 80 ML EPIDURAL SCH (23:29)
[2018-12-01] MEDS: Ondansetron PF 4 MG/2 ML Vial IVP PRN (05:08)
[2018-12-01] MEDS: traMADol HCl 50 MG TAB PO PRN ×3 (05:08→20:32)
[2018-12-01 06:10] LABS: #Lymphocytes 0.6 thou/uL (1.20-3.40); #Monocytes 0.8 thou/uL (0.11-0.59); #Neutrophils 8.5 thou/uL (1.40-6.50); %Basophils 0.4 % (0.0-1.0); %Eosinophils 0.4 % (0.0-10.0); %Lymphocytes 6.3 % (21.0-51.0); %Monocytes 8.2 % (0.0-10.0); %Neutrophils 84.7 % (42.0-75.0); Mean Corpuscular HGB CONC 32.6 g/dL (32.0-36.0); Mean Platelet Volume 6.5 fL (7.4-10.4); Platelet Count 152 thou/uL (130-400); RBC Distribution Width 13.1 % (11.5-14.5); Red Blood Cell (RBC) Count 3.24 mill/uL (4.70-6.10)
[2018-12-01 06:12] LABS: Mean Corpuscular HGB CONC 33.1 g/dL (32.0-36.0); Mean Corpuscular Hemoglobin 34.4 pg (27.0-31.0); Mean Platelet Volume 6.4 fL (7.4-10.4); Platelet Count 157 thou/uL (130-400); RBC Distribution Width 13.2 % (11.5-14.5); White Blood Cell (WBC) Count 10.1 thou/uL (4.8-10.8)
[2018-12-01 06:30] LABS: Anion Gap 14 mmol/L (10-20); BUN (Urea Nitrogen) 62 mg/dL (8.4-25.7); Calc. Creatinine Clearance 20 mL/min (70-130); Calcium 9.5 mg/dL (7.8-10.44); Carbon Dioxide 28 mmol/L (23-31); Chloride 101 mmol/L (98-107); Estimated GFR-MDRD 14; Glucose 127 mg/dL (80-115); Potassium 3.8 mmol/L (3.5-5.1); Sodium 139 mmol/L (136-145)
[2018-12-01] MEDS ORDERED: Allopurinol 300 MG TAB PO SCH (09:00)
[2018-12-01] MEDS ORDERED: Loratadine 10 MG TAB PO PRN (09:00)
[2018-12-01] MEDS: Tamsulosin HCl 0.4 MG CAP PO SCH (09:15)
[2018-12-01] MEDS: Ergocalciferol 1.25 MG(50,000 UNITS) CAP PO SCH (09:15)
[2018-12-01] MEDS: Senokot S 8.6-50 MG TAB PO SCH ×2 (09:15→20:22)
[2018-12-01] MEDS: Ferrous Gluconate 324 MG TAB PO SCH ×2 (09:15→20:22)
[2018-12-01] MEDS: hydrALAZINE 25 MG TAB PO SCH ×4 (09:16→20:23)
[2018-12-01] MEDS: predniSONE 5 MG TAB PO SCH (09:16)
[2018-12-01] MEDS: Aspirin Chewable 81 MG TAB PO SCH ×2 (09:16→20:22)
[2018-12-01] MEDS: Magnesium Oxide 400 MG TAB PO SCH (09:16)
[2018-12-01] MEDS: Allopurinol 300 MG TAB PO SCH (09:17)
[2018-12-01] MEDS: Calcitriol 0.25 MCG CAP PO SCH (09:18)
[2018-12-01] MEDS: NIFEdipine XL 90 MG TAB PO SCH (09:18)
[2018-12-01] MEDS: Sodium Bicarbonate Tab 325 MG TAB PO SCH ×2 (09:18→20:22)
[2018-12-01] MEDS: Multivitamin W/ Minerals 1 TAB PO SCH (09:18)
[2018-12-01] MEDS: Sevelamer Carbonate 800 MG TAB PO SCH ×2 (09:18→09:24)
[2018-12-01] MEDS: Rosuvastatin 5 MG TAB PO SCH (09:19)
[2018-12-01] MEDS: Lactinex Tablet PO SCH (09:19)
[2018-12-01] MEDS: Tacrolimus 1 MG CAP PO SCH (09:19)
--- NOTE | 2018-12-01 09:38 | PRG ---
DATE OF SERVICE: 12/01/2018 SUBJECTIVE: Mr. Gonsalves is a 68-year-old white male with ESRD and currently on peritoneal dialysis. He was admitted, and the patient underwent a right hip joint surgery-right total hip arthroplasty. We are following him up for his maintenance peritoneal dialysis. He did well with the peritoneal dialysis. We will remove more than 2 L of PD fluid. No other complaints. No chest pain or shortness of breath. OBJECTIVE: VITAL SIGNS: Blood pressure is 146/70, heart rate 86, respiratory rate 18, temperature 98.3, and pulse ox 97%. GENERAL: Awake, alert, comfortable, sitting, not in distress. SKIN: Adequate turgor. HEENT: Pinkish conjunctivae. Anicteric sclerae. NECK: No neck mass. No carotid bruits. No JVD. CHEST: No deformities. LUNGS: Clear breath sounds. No wheezing. No crackles. HEART: Normal sinus rhythm. No murmur. No gallops. No rubs. ABDOMEN: Globular, soft, nontender. No masses. EXTREMITIES: No edema. No deformities. MEDICATIONS: Medications of December 01, 2018, were reviewed. LABORATORY DATA: Laboratories of December 01, 2018, showed the following white count 10, hemoglobin 11. Sodium 139, potassium 3.8, chloride 101, carbon dioxide 28, BUN 62, creatinine 4.34, calcium 9.5. ASSESSMENT AND PLAN: 1. End-stage renal disease, stable. We will continue current CCPD regimen, tolerating said peritoneal dialysis. We removed more than 2 L of ultrafiltration. No changes will be made with the PD fluid. 2. Anemia, stable. No indication for any Epogen. 3. Status post right hip surgery, doing well, undergoing PT. Job ID: [id number]
[2018-12-01] MEDS ORDERED: Cefdinir 300 MG CAP PO SCH (09:45)
--- NOTE | 2018-12-01 16:27 | PRG ---
DATE OF SERVICE: 12/01/2018 SUBJECTIVE: Dwain is a 68-year-old white male, who is postop day 1 from right total hip arthroplasty. He is doing relatively well. His pain has been well controlled and he has been ambulating with therapy. Currently, we turned in an inpatient rehabilitation consult since the patient has peritoneal dialysis, required higher level of care. OBJECTIVE: VITAL SIGNS: Temperature 97.9, pulse 89, respiratory rate 14, blood pressure is 146/72. GENERAL: He is alert, oriented, responsive, appropriate with examiner. EXTREMITIES: Incision is clean. No strikethrough. His leg lengths appear symmetric. No malrotation noted. LABORATORY DATA: Hemoglobin and hematocrit 11.0 and 33.3. IMPRESSION: 1. A 68-year-old white male, postop day 1, right total hip arthroplasty. 2. Chronic renal insufficiency, requiring doubt peritoneal dialysis. PLAN: Continue current care inpatient rehabilitation consult and recheck tomorrow, probable transfer either tomorrow or following day. Job ID: [id number]
--- NOTE | 2018-12-01 17:07 | PRG ---
DATE OF SERVICE: 12/01/2018 SUBJECTIVE: The patient is doing great following a right total hip replacement by Dr. Nino. He is ambulating with a walker at this time. He is in great spirits. OBJECTIVE: VITAL SIGNS: Temperature 98.3, pulse 86, respirations are 18, pulse ox 97%, and blood pressure 146/70. HEART: Regular rate and rhythm. LUNGS: Clear. ABDOMEN: Soft. EXTREMITIES: With no edema. LABORATORY DATA: H and H are 11 and 33.8, with a platelet of 152, and electrolytes normal. Creatinine 4.34 and BUN 62. ASSESSMENT: 1. Postoperative day #1 status post right total hip replacement. 2. 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 3. Status post kidney transplant rejection and now on peritoneal dialysis, followed by Dr. Hinson. 4. Hypertension. 5. Avascular necrosis of the right hip. 6. History of gout. 7. Hyperlipidemia. PLAN: 1. Continue routine postoperative care. 2. Continue PT. 3. [facility]. 4. Continue with peritoneal dialysis. 5. We will continue to follow. Job ID: [id number]
[2018-12-01] MEDS: fentaNYL Citrate/PF 500 MCG, Bupivacaine 10 ML in Sodium Chloride 0.9% 80 ML EPIDURAL SCH (17:54)
[2018-12-02] MEDS: Sevelamer Carbonate 800 MG TAB PO SCH ×3 (09:29→17:06)
[2018-12-02] MEDS: Sodium Bicarbonate Tab 325 MG TAB PO SCH ×2 (09:30→20:42)
[2018-12-02] MEDS: Rosuvastatin 5 MG TAB PO SCH (09:31)
[2018-12-02] MEDS: Cefdinir 300 MG CAP PO SCH (09:31)
[2018-12-02] MEDS: Senokot S 8.6-50 MG TAB PO SCH ×2 (09:32→20:42)
[2018-12-02] MEDS: predniSONE 5 MG TAB PO SCH (09:32)
[2018-12-02] MEDS: Tamsulosin HCl 0.4 MG CAP PO SCH (09:32)
[2018-12-02] MEDS: Magnesium Oxide 400 MG TAB PO SCH (09:32)
[2018-12-02] MEDS: Lactinex Tablet PO SCH (09:32)
[2018-12-02] MEDS: Multivitamin W/ Minerals 1 TAB PO SCH (09:32)
[2018-12-02] MEDS: Aspirin Chewable 81 MG TAB PO SCH ×2 (09:33→20:42)
[2018-12-02] MEDS: Ferrous Gluconate 324 MG TAB PO SCH ×2 (09:33→20:42)
[2018-12-02] MEDS: Calcitriol 0.25 MCG CAP PO SCH (09:34)
[2018-12-02] MEDS: Allopurinol 300 MG TAB PO SCH (09:34)
[2018-12-02] MEDS: hydrALAZINE 25 MG TAB PO SCH (09:38)
--- NOTE | 2018-12-02 09:41 | PRG ---
DATE OF SERVICE: 12/02/2018 SUBJECTIVE: Mr. Gonsalves is a 68-year-old white male with ESRD and underwent right hip surgery. Doing well. This morning, he is feeling a little tired. His blood pressure was on the low side. No other complaints. No chest pain. No shortness of breath. He tolerated the peritoneal dialysis yesterday. We removed 1.7 L of fluid. OBJECTIVE: VITAL SIGNS: Blood pressure 90/70, heart rate 70, respiratory rate 16, pulse ox 99%, temperature 98.8. GENERAL: The patient is awake, sitting, comfortable, not in overt distress. SKIN: Adequate turgor. HEENT: He has a slightly pale conjunctivae. Anicteric sclerae. NECK: No neck mass. No carotid bruits. No JVD. CHEST: No deformities. LUNGS: Clear breath sounds. No wheezing. No crackles. HEART: Normal sinus rhythm. No murmur. No gallops. No rubs. ABDOMEN: Globular, soft, nontender. No masses. Positive for PD catheter. EXTREMITIES: No edema. MEDICATIONS: Medications of December 02, 2018, reviewed. LABORATORY DATA: Laboratories of December 01, 2018, hemoglobin 11. Sodium 139, potassium 3.8, chloride 101, carbon dioxide 28, BUN 62, creatinine 4.34, glucose 127, calcium 9.5. ASSESSMENT AND PLAN: 1. End-stage renal disease, stable. We will continue current peritoneal dialysis regimen, except we will change PD solution to a 1.5% PD solution to minimize ultrafiltration. We are doing this due to the low BP. 2. Relatively low blood pressure-we will discontinue hydralazine. He is currently on nifedipine alone now. 3. Status post right hip surgery, doing well. Surgery is following. We will recheck CBC, basic metabolic profile in a.m. Job ID: [id number]
[2018-12-02 10:06] LABS: Hemoglobin 10.1 g/dL (14.0-18.0); Mean Corpuscular HGB CONC 32.6 g/dL (32.0-36.0); Mean Corpuscular Hemoglobin 34.4 pg (27.0-31.0); Mean Platelet Volume 6.7 fL (7.4-10.4); Platelet Count 135 thou/uL (130-400); RBC Distribution Width 13.3 % (11.5-14.5); Red Blood Cell (RBC) Count 2.93 mill/uL (4.70-6.10); White Blood Cell (WBC) Count 7.8 thou/uL (4.8-10.8)
[2018-12-02] MEDS ORDERED: HYDROcodone/Acetaminophen 10/325 mg Tablet PO PRN ×2 (11:19)
[2018-12-02] MEDS: Tacrolimus 1 MG CAP PO SCH (12:33)
[2018-12-02] MEDS: NIFEdipine XL 90 MG TAB PO SCH (12:35)
[2018-12-02 13:16] LABS: Anion Gap 13 mmol/L (10-20); BUN (Urea Nitrogen) 66 mg/dL (8.4-25.7); Calc. Creatinine Clearance 20 mL/min (70-130); Calcium 9.5 mg/dL (7.8-10.44); Carbon Dioxide 31 mmol/L (23-31); Chloride 98 mmol/L (98-107); Estimated GFR-MDRD 14; Glucose 97 mg/dL (80-115); Potassium 3.9 mmol/L (3.5-5.1); Sodium 138 mmol/L (136-145)
[2018-12-02] MEDS: traMADol HCl 50 MG TAB PO PRN ×2 (17:04→23:11)
[2018-12-02] MEDS: Acetaminophen 325 MG TAB PO PRN (20:47)
[2018-12-03] MEDS: traMADol HCl 50 MG TAB PO PRN ×2 (05:06→21:54)
[2018-12-03 05:23] LABS: Anion Gap 14 mmol/L (10-20); BUN (Urea Nitrogen) 78 mg/dL (8.4-25.7); Calc. Creatinine Clearance 19 mL/min (70-130); Calcium 9.2 mg/dL (7.8-10.44); Carbon Dioxide 28 mmol/L (23-31); Chloride 96 mmol/L (98-107); Estimated GFR-MDRD 13; Glucose 115 mg/dL (80-115); Potassium 3.7 mmol/L (3.5-5.1); Sodium 134 mmol/L (136-145)
[2018-12-03 05:40] LABS: #Eosinphils 0.1 thou/uL (0.0-0.7); #Monocytes 0.5 thou/uL (0.11-0.59); #Neutrophils 5.5 thou/uL (1.40-6.50); %Basophils 0.2 % (0.0-1.0); %Eosinophils 1.8 % (0.0-10.0); %Lymphocytes 14.3 % (21.0-51.0); %Monocytes 7.3 % (0.0-10.0); %Neutrophils 76.4 % (42.0-75.0); Hemoglobin 9.5 g/dL (14.0-18.0); Mean Corpuscular HGB CONC 32.6 g/dL (32.0-36.0); Mean Corpuscular Hemoglobin 34.2 pg (27.0-31.0); Mean Platelet Volume 6.7 fL (7.4-10.4); Platelet Count 122 thou/uL (130-400); RBC Distribution Width 12.8 % (11.5-14.5); Red Blood Cell (RBC) Count 2.77 mill/uL (4.70-6.10); White Blood Cell (WBC) Count 7.2 thou/uL (4.8-10.8)
[2018-12-03] MEDS: Senokot S 8.6-50 MG TAB PO SCH ×2 (08:03→21:53)
[2018-12-03] MEDS: NIFEdipine XL 90 MG TAB PO SCH (08:05)
[2018-12-03] MEDS: Calcitriol 0.25 MCG CAP PO SCH (08:05)
[2018-12-03] MEDS: Cefdinir 300 MG CAP PO SCH (08:07)
[2018-12-03] MEDS: Tamsulosin HCl 0.4 MG CAP PO SCH (08:07)
[2018-12-03] MEDS: Rosuvastatin 5 MG TAB PO SCH (08:07)
[2018-12-03] MEDS: Magnesium Oxide 400 MG TAB PO SCH (08:07)
[2018-12-03] MEDS: Lactinex Tablet PO SCH (08:07)
[2018-12-03] MEDS: Aspirin Chewable 81 MG TAB PO SCH ×2 (08:08→21:55)
[2018-12-03] MEDS: Sodium Bicarbonate Tab 325 MG TAB PO SCH ×2 (08:08→21:52)
[2018-12-03] MEDS: Multivitamin W/ Minerals 1 TAB PO SCH (08:08)
[2018-12-03] MEDS: Acetaminophen 325 MG TAB PO PRN (08:08)
[2018-12-03] MEDS: Ferrous Gluconate 324 MG TAB PO SCH ×2 (08:08→21:53)
[2018-12-03] MEDS: predniSONE 5 MG TAB PO SCH (08:09)
[2018-12-03] MEDS: Allopurinol 300 MG TAB PO SCH (08:09)
[2018-12-03] MEDS: Sevelamer Carbonate 800 MG TAB PO SCH ×3 (08:20→18:28)
[2018-12-03] MEDS: Tacrolimus 1 MG CAP PO SCH (08:21)
--- NOTE | 2018-12-03 08:34 | PRG ---
DATE OF SERVICE: 12/03/2018 SUBJECTIVE: The patient is doing well this morning. No complaints of lightheadedness, dizziness, nausea, or vomiting. Undergoing PT without difficulty. OBJECTIVE: VITAL SIGNS: Temperature 97.8, pulse is 86, respirations 14, pulse ox 98%, and blood pressure 130/73. HEART: Regular rate and rhythm. LUNGS: Clear. ABDOMEN: Soft. EXTREMITIES: With no edema. LABORATORY DATA: White count 7.2, H and H of 9.5 and 29.1, and platelets 122. Sodium 134, potassium 3.7, creatinine 4.42, and BUN 78. ASSESSMENT: 1. Postoperative day #3, status post right total hip replacement. 2. 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 3. Status post kidney transplant rejection and now peritoneal dialysis. 4. Hypertension. 5. Avascular necrosis of the right hip. 6. History of gout. 7. Hyperlipidemia. PLAN: 1. Continue routine postop care. 2. Continue PT. 3. Continue peritoneal dialysis. 4. Awaiting transfer to [facility] versus [facility] soon. Job ID: [id number]
[2018-12-03] MEDS ORDERED: Epoetin (ESRD) 20,000 UNITS/ML SC SCH (17:30)
--- NOTE | 2018-12-03 17:53 | PRG ---
DATE OF SERVICE: 12/03/2018 SERVICE: Renal Medicine SUBJECTIVE: Mr. Gonsalves is a 68-year-old white male, who is status post right hip joint surgery, ESRD and followed up by the renal service for his maintenance peritoneal dialysis. Due to the low blood pressure, we have adjusted down his BP medications. This morning, he still has a low blood pressure. We have decided to stop his nifedipine. In addition, I have changed the PD fluid to 1.5% to minimize fluid removal. No other complaints. No chest pain or shortness of breath. OBJECTIVE: VITAL SIGNS: Blood pressure 126/97, heart rate 76, respiratory rate 12, and pulse oximetry 94% on room air. GENERAL: Awake, alert, sitting comfortable, not in distress. SKIN: Adequate turgor. HEENT: He has a slightly pale conjunctivae. Anicteric sclerae. NECK: No neck mass. No carotid bruits. No JVD. CHEST: No deformities. LUNGS: Clear breath sounds. HEART: Normal sinus rhythm. No murmur. No gallops. No rubs. ABDOMEN: Globular, soft, and nontender. No masses. EXTREMITIES: No edema. No deformities. Positive for PD catheter. MEDICATIONS: Medications of December 03, 2018, reviewed. LABORATORY DATA: Laboratories of December 03, 2018; white count 7.2 and hemoglobin 9.5. Sodium 134, potassium 3.7, chloride 96, carbon dioxide 28, BUN 78, creatinine 4.42, glucose 115, and calcium 9.2. ASSESSMENT AND PLAN: 1. End-stage renal disease, stable, tolerating current peritoneal dialysis. Due to the low blood pressure, I have changed his peritoneal dialysis fluid to 1.5% peritoneal dialysis solution to minimize fluid removal. 2. Anemia. We will start Epogen 7500 units subcutaneously every week. 3. Degenerative joint disease, right hip joint-the patient is status post right total hip arthroplasty. Doing well. Surgery is following. 4. Recheck basic metabolic and CBC in a.m. Job ID: [id number]
[2018-12-03] MEDS ORDERED: EPOETIN ALFA-EPBX (ESRD) 4,000 UNIT/ML VIAL SC SCH (18:00)
[2018-12-04 06:47] LABS: #Eosinphils 0.1 thou/uL (0.0-0.7); #Lymphocytes 0.9 thou/uL (1.20-3.40); #Monocytes 0.4 thou/uL (0.11-0.59); #Neutrophils 4.8 thou/uL (1.40-6.50); %Basophils 0.4 % (0.0-1.0); %Eosinophils 2.3 % (0.0-10.0); %Monocytes 7.1 % (0.0-10.0); %Neutrophils 76.2 % (42.0-75.0); Hemoglobin 9.6 g/dL (14.0-18.0); Mean Platelet Volume 6.5 fL (7.4-10.4); Platelet Count 133 thou/uL (130-400); RBC Distribution Width 12.5 % (11.5-14.5); Red Blood Cell (RBC) Count 2.82 mill/uL (4.70-6.10); White Blood Cell (WBC) Count 6.3 thou/uL (4.8-10.8)
[2018-12-04] MEDS: Polyethylene Glycol 3350 17 GM Packet PO PRN (09:31)
[2018-12-04] MEDS: Tacrolimus 1 MG CAP PO SCH (09:32)
[2018-12-04] MEDS: Ferrous Gluconate 324 MG TAB PO SCH ×2 (09:37→20:59)
[2018-12-04] MEDS: Magnesium Oxide 400 MG TAB PO SCH (09:37)
[2018-12-04] MEDS: Aspirin Chewable 81 MG TAB PO SCH ×2 (09:37→20:59)
[2018-12-04] MEDS: Multivitamin W/ Minerals 1 TAB PO SCH (09:38)
[2018-12-04] MEDS: Rosuvastatin 5 MG TAB PO SCH (09:38)
[2018-12-04] MEDS: Sodium Bicarbonate Tab 325 MG TAB PO SCH ×2 (09:39→20:58)
[2018-12-04] MEDS: Calcitriol 0.25 MCG CAP PO SCH (09:39)
[2018-12-04] MEDS: Senokot S 8.6-50 MG TAB PO SCH ×2 (09:40→21:00)
[2018-12-04] MEDS: Allopurinol 300 MG TAB PO SCH (09:41)
[2018-12-04] MEDS: Cefdinir 300 MG CAP PO SCH (09:41)
[2018-12-04] MEDS: Sevelamer Carbonate 800 MG TAB PO SCH ×3 (09:43→16:37)
[2018-12-04] MEDS: predniSONE 5 MG TAB PO SCH (09:43)
[2018-12-04] MEDS: Tamsulosin HCl 0.4 MG CAP PO SCH (09:43)
[2018-12-04] MEDS: Lactinex Tablet PO SCH (09:47)
--- NOTE | 2018-12-04 11:54 | PRG ---
DATE OF SERVICE: 12/04/2018 SERVICE: Renal Medicine. SUBJECTIVE: Mr. Gonsalves is a 68-year-old white male with ESRD and underwent right hip surgery. In the last few days, he was noted to be hypotensive and for that reason, we discontinued all his BP medications. In addition, I have adjusted his PD fluid to pull out less ultrafiltration. This morning, he is feeling better. Denies any chest pain or shortness of breath. We are awaiting for possible rehab transfer. He tolerated his said peritoneal dialysis. No complaints of chest pain or shortness of breath. OBJECTIVE: VITAL SIGNS: Blood pressure is 99/61, ranging to as high as 143/61; heart rate is 91; respiratory rate 16; temperature 98; and pulse ox 99%. GENERAL: Noted to be awake, alert, comfortable, not in distress. SKIN: Adequate turgor. HEENT: Slightly pale conjunctivae. Anicteric sclerae. NECK: No neck mass. No carotid bruits. No JVD. CHEST: No deformities. LUNGS: Clear breath sounds. HEART: Normal sinus rhythm. No murmur. No gallops. No rubs. ABDOMEN: Globular, soft, nontender. No masses. EXTREMITIES: No edema. No deformities. MEDICATIONS: Medications of December 04, 2018, reviewed. LABORATORY DATA: Laboratories of December 04, 2018; white count 6.2, hemoglobin 9.6. On December 03, 2018; sodium 134, potassium 3.7, chloride 96, carbon dioxide 28, BUN 78, creatinine 4.42, glucose 115, and calcium 9.2. ASSESSMENT AND PLAN: 1. Hypotension - all BP medications have been discontinued. Continue supportive care. Minimal PD fluid removal. However, I have adjusted the PD fluid to be back on 1.5/2.5% PD solution. 2. Anemia, continuing weekly Epogen. No indication for any blood transfusion. 3. Status post right hip surgery, stable. Awaiting rehab placement. Overall, agree with current management. Job ID: [id number]
--- NOTE | 2018-12-04 12:05 | PRG ---
DATE OF SERVICE: 12/04/2018 SUBJECTIVE: The patient without complaints. Undergoing physical therapy. Awaiting placement. OBJECTIVE: VITAL SIGNS: Stable. Afebrile. GENERAL: Exam is benign. HEART: S1 and S2 with no rubs, murmurs, or gallops. LUNGS: Clear to auscultation bilaterally. ABDOMEN: Soft and nontender. EXTREMITIES: Show good palpable pulses. No edema. ASSESSMENT AND PLAN: Postoperative day 4 from right total hip replacement from avascular necrosis, has end-stage renal disease, also has a renal transplant rejection. The patient on peritoneal dialysis. Evidently, it is in discussions with Dr. Hinson for possible change from peritoneal dialysis at some point to hemodialysis. Awaiting placement to either senior living or rehab. Job ID: [id number]
[2018-12-05] MEDS: Acetaminophen 325 MG TAB PO PRN ×2 (05:05→21:25)
[2018-12-05] MEDS: Allopurinol 300 MG TAB PO SCH (08:42)
[2018-12-05] MEDS: Cefdinir 300 MG CAP PO SCH (08:42)
[2018-12-05] MEDS: Ferrous Gluconate 324 MG TAB PO SCH ×2 (08:42→21:21)
[2018-12-05] MEDS: Sevelamer Carbonate 800 MG TAB PO SCH ×3 (08:42→17:02)
[2018-12-05] MEDS: Tamsulosin HCl 0.4 MG CAP PO SCH (08:42)
[2018-12-05] MEDS: Multivitamin W/ Minerals 1 TAB PO SCH (08:42)
[2018-12-05] MEDS: predniSONE 5 MG TAB PO SCH (08:42)
[2018-12-05] MEDS: Senokot S 8.6-50 MG TAB PO SCH ×2 (08:43→21:20)
[2018-12-05] MEDS: Aspirin Chewable 81 MG TAB PO SCH ×2 (08:43→21:21)
[2018-12-05] MEDS: Lactinex Tablet PO SCH (08:43)
[2018-12-05] MEDS: Sodium Bicarbonate Tab 325 MG TAB PO SCH ×2 (08:43→21:20)
[2018-12-05] MEDS: Magnesium Oxide 400 MG TAB PO SCH (08:43)
[2018-12-05] MEDS: Calcitriol 0.25 MCG CAP PO SCH (08:44)
[2018-12-05] MEDS: Rosuvastatin 5 MG TAB PO SCH (08:44)
[2018-12-05] MEDS: Tacrolimus 1 MG CAP PO SCH (08:54)
--- NOTE | 2018-12-05 10:23 | PRG ---
DATE OF SERVICE: 12/05/2018 SUBJECTIVE: Mr. Gonsalves is a 68-year-old white male with ESRD and followed up by the Renal Service for his maintenance peritoneal dialysis. He is tolerating said peritoneal dialysis. We have previously incorporated heparin due to fibrin in the PD fluid. This morning, no fibrin was noted in the PD. He is tolerating the said peritoneal dialysis. OBJECTIVE: VITAL SIGNS: Blood pressure is 133/72, heart rate 73, respiratory rate 20, temperature 98.5, and pulse ox 97%. GENERAL: Awake, alert, comfortable, not in distress. SKIN: Adequate turgor. HEENT: He has slightly pale conjunctivae. Anicteric sclerae. No neck mass. No carotid bruits. No JVD. CHEST: No deformities. LUNGS: Clear breath sounds. HEART: Normal sinus rhythm. No murmur. No gallops or rubs. ABDOMEN: Globular, soft, nontender. No masses. Positive for PD catheter. EXTREMITIES: No edema. Positive for left AV fistula, functional. MEDICATIONS: Medications of December 05, 2018, reviewed. LABORATORY DATA: Laboratories of December 04, 2018; white count 6.3, hemoglobin 9.6. December 03, 2018, sodium 134, potassium 3.7, chloride 96, carbon dioxide 28, BUN 78, creatinine 4.42, calcium 9.2. ASSESSMENT AND PLAN: 1. End-stage renal disease, stable. We will continue current peritoneal dialysis, tolerating said treatment. No changes will be made with the current peritoneal dialysis. We will be initiating 1.5/2.5%PD solution. 2. Fibrin in PD fluid-we will discontinue heparin due to the improvement of the PD fluid-no more fibrin. 3. Anemia. The patient is currently on weekly Epogen. 4. Hypertension. BP medications were placed on hold. We will resume as needed. 5. Status post right hip surgery, doing well. 6. Awaiting rehab placement. Job ID: [id number]
--- NOTE | 2018-12-05 14:04 | PRG ---
DATE OF SERVICE: 12/05/2018 SUBJECTIVE: Mr. Gonsalves is a 68-year-old white male in the hospital for hip replacement. He has also end-stage renal disease, getting peritoneal dialysis. OBJECTIVE: VITAL SIGNS: Today, vital signs are stable. He is afebrile. HEART: Regular rate and rhythm. No rubs, murmurs, or gallops. LUNGS: Clear. ASSESSMENT: End-stage renal disease, stable, will be continuing peritoneal dialysis per Dr. Hinson. He is also doing well from his hip surgery. We are awaiting rehab placement at this time. He is also, with his anemia, getting weekly Epogen injections. Job ID: [id number]
[2018-12-05] MEDS: traMADol HCl 50 MG TAB PO PRN (21:25)
[2018-12-06] MEDS: Cefdinir 300 MG CAP PO SCH (08:51)
[2018-12-06] MEDS: Rosuvastatin 5 MG TAB PO SCH (08:51)
[2018-12-06] MEDS: Sodium Bicarbonate Tab 325 MG TAB PO SCH ×2 (08:51→21:18)
[2018-12-06] MEDS: Senokot S 8.6-50 MG TAB PO SCH ×2 (08:51→21:18)
[2018-12-06] MEDS: Magnesium Oxide 400 MG TAB PO SCH (08:52)
[2018-12-06] MEDS: Calcitriol 0.25 MCG CAP PO SCH (08:52)
[2018-12-06] MEDS: Tamsulosin HCl 0.4 MG CAP PO SCH (08:52)
[2018-12-06] MEDS: Lactinex Tablet PO SCH (08:52)
[2018-12-06] MEDS: Aspirin Chewable 81 MG TAB PO SCH ×2 (08:52→21:19)
[2018-12-06] MEDS: Sevelamer Carbonate 800 MG TAB PO SCH ×3 (08:52→16:45)
[2018-12-06] MEDS: Allopurinol 300 MG TAB PO SCH (08:52)
[2018-12-06] MEDS: predniSONE 5 MG TAB PO SCH (08:53)
[2018-12-06] MEDS: Tacrolimus 1 MG CAP PO SCH (08:53)
[2018-12-06] MEDS: Multivitamin W/ Minerals 1 TAB PO SCH (08:53)
[2018-12-06] MEDS: Ferrous Gluconate 324 MG TAB PO SCH ×2 (08:53→21:18)
--- NOTE | 2018-12-06 12:32 | PRG ---
DATE OF SERVICE: 12/06/2018 SUBJECTIVE: The patient is doing well. He does complain of right hip soreness, but is doing well, using the walker. OBJECTIVE: VITAL SIGNS: Temperature 98.3, pulse 73, respirations 18, blood pressure 160/63. HEART: Regular rate and rhythm. LUNGS: Clear. ABDOMEN: Soft. EXTREMITIES: No edema. LABORATORY DATA: None. ASSESSMENT: 1. Postop status post right total hip replacement, postop day #6. 2. 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 3. Status post kidney transplant rejection, and now on peritoneal dialysis. 4. Hypertension. 5. Avascular necrosis of the right hip. 6. History of gout. 7. Hyperlipidemia. PLAN: 1. Blood pressure at this time is 129/66. We will continue to hold antihypertensive medications. 2. Continue PT. 3. Continue peritoneal dialysis. 4. I will plan to transfer to residential tomorrow. Job ID: [id number]
[2018-12-06] MEDS: Polyethylene Glycol 3350 17 GM Packet PO PRN (12:46)
--- NOTE | 2018-12-06 14:50 | PRG ---
DATE OF SERVICE: 12/06/2018 SUBJECTIVE: Dwain is a 68-year-old white male, who is now postoperative day 6 from Press-Fit right total hip arthroplasty. He has continued to improve and I believe inpatient rehabilitation is pending a bed availability. OBJECTIVE: VITAL SIGNS: Temperature 98.3, pulse 73, blood pressure is 160/63, respiratory rate 18 and nonlabored, and O2 saturation is 98% on room air. GENERAL: He is alert and oriented to person, place, time, and situation, grossly nonfocal, appropriate and responsive to examiner. EXTREMITIES: Incision is clean and closed. No erythema. No malrotation or shortening. IMPRESSION: 1. A 68-year-old male, postoperative day 6, right total hip arthroplasty, doing well. 2. Anemia. 3. Chronic renal insufficiency, requiring peritoneal dialysis. PLAN: Continue current care. Transfer when availability of inpatient bed is noted. Job ID: [id number]
--- NOTE | 2018-12-06 16:07 | PRG ---
DATE OF SERVICE: 12/06/2018 SUBJECTIVE: Mr. Gonsalves is a 68-year-old white male with known history of ESRD and followed by the Renal Service for his maintenance peritoneal dialysis. Please note, the patient was admitted for right hip surgery and he is doing well. He tolerated his peritoneal dialysis last night without any difficulty. He voices no new complaints. He denies any chest pain or shortness of breath. OBJECTIVE: VITAL SIGNS: Blood pressure is noted at 146/78, heart rate 76, respiratory rate 16, temperature 99.3, and pulse oximetry 95%. GENERAL: Noted to be awake, alert, comfortable, not in distress. SKIN: Adequate turgor. HEENT: Pinkish conjunctivae. Anicteric sclerae. NECK: No neck mass. No carotid bruits. No JVD. CHEST: No deformities. LUNGS: Clear breath sounds. No wheezing. No crackles. HEART: Normal sinus rhythm. Grade 2/6 systolic murmur. No gallops or rubs. ABDOMEN: Globular, soft, and nontender. No masses. Positive for PD catheter. EXTREMITIES: No edema. No deformities. MEDICATIONS: Medications of December 06, 2018, was reviewed. LABORATORY DATA: Laboratories of December 04, 2018; white count 6.2, hemoglobin 9.6. On December 03, 2018, sodium 134, potassium 3.7, chloride 96, carbon dioxide 28, BUN 78, creatinine 4.42, glucose 115, and calcium 9.2. ASSESSMENT AND PLAN: 1. End-stage renal disease, stable. We will continue current peritoneal dialysis. Fluid removal only as tolerated. No changes will be made with the current PD regimen. 2. Anemia, on weekly Epogen. 3. Hypertension - recently the patient's blood pressure was placed on hold due to the low blood pressure. We will probably resume in a smaller dose of nifedipine at 30 mg XL tablet daily. 4. Status post right hip surgery, stable. Surgery is following. 5. Awaiting rehab placement. Job ID: [id number]
[2018-12-06] MEDS: traMADol HCl 50 MG TAB PO PRN (21:20)
[2018-12-07] MEDS: Sevelamer Carbonate 800 MG TAB PO SCH ×3 (08:25→17:48)
[2018-12-07] MEDS: Senokot S 8.6-50 MG TAB PO SCH ×2 (08:26→20:39)
[2018-12-07] MEDS: Rosuvastatin 5 MG TAB PO SCH (08:26)
[2018-12-07] MEDS: Lactinex Tablet PO SCH (08:26)
[2018-12-07] MEDS: Calcitriol 0.25 MCG CAP PO SCH (08:26)
[2018-12-07] MEDS: Multivitamin W/ Minerals 1 TAB PO SCH (08:26)
[2018-12-07] MEDS: Sodium Bicarbonate Tab 325 MG TAB PO SCH ×2 (08:26→20:39)
[2018-12-07] MEDS: Cefdinir 300 MG CAP PO SCH (08:26)
[2018-12-07] MEDS: Tamsulosin HCl 0.4 MG CAP PO SCH (08:27)
[2018-12-07] MEDS: NIFEdipine XL 30 MG TAB PO SCH (08:27)
[2018-12-07] MEDS: predniSONE 5 MG TAB PO SCH (08:27)
[2018-12-07] MEDS: Aspirin Chewable 81 MG TAB PO SCH ×2 (08:28→20:39)
[2018-12-07] MEDS: Magnesium Oxide 400 MG TAB PO SCH (08:28)
[2018-12-07] MEDS: Ferrous Gluconate 324 MG TAB PO SCH ×2 (08:28→20:39)
[2018-12-07] MEDS: Allopurinol 300 MG TAB PO SCH (08:28)
[2018-12-07] MEDS: Tacrolimus 1 MG CAP PO SCH (08:28)
--- NOTE | 2018-12-07 09:39 | PRG ---
DATE OF SERVICE: 12/07/2018 SUBJECTIVE: Mr. Gonsalves is a 68-year-old white male with ESRD and followed up by the Renal Service for his maintenance peritoneal dialysis. He is tolerating peritoneal dialysis. We removed about almost 2 L with peritoneal dialysis based on the measurement of the last ultrafiltration. The patient denies any new complaints. Denies any chest pain or shortness of breath. We did resume back his nifedipine at smaller dose. OBJECTIVE: VITAL SIGNS: Blood pressure is 136/69, heart rate 82, respiratory rate 20, temperature 98, and pulse ox 99%. GENERAL: Awake, alert, sitting comfortable, not in distress. SKIN: Adequate turgor. HEENT: Slightly pale conjunctivae. Anicteric sclerae. NECK: No neck mass. No carotid bruits. No JVD. CHEST: No deformities. LUNGS: Clear breath sounds. No wheezing. No crackles. HEART: Normal sinus rhythm. No murmur. No gallops. No rubs. ABDOMEN: Globular, soft, and nontender. No masses. EXTREMITIES: No edema. No deformities. He does have a PD catheter. MEDICATIONS: Medications of December 07, 2018, reviewed. LABORATORY DATA: Laboratories of December 04, 2018; white count 6.3 and hemoglobin 9.6. Sodium 134, potassium 3.7, chloride 96, carbon dioxide 28, BUN 78, creatinine 4.42, glucose 112, and calcium 9.2. ASSESSMENT AND PLAN: 1. End-stage renal disease, stable. Continue current PD regimen. Tolerating current ultrafiltration with the peritoneal dialysis. No changes to be made. 2. Anemia. Continue weekly Epogen. 3. Hypertension-nifedipine resume back at smaller dose of 30 mg tablet once a day. Overall, agree with current management. Awaiting rehab transfer. Job ID: [id number]
--- NOTE | 2018-12-07 10:15 | PRG ---
DATE OF SERVICE: 12/07/2018 SUBJECTIVE: The patient is in good spirits, doing well with Physical Therapy. However, he is still having troubles getting out of bed by himself. He is still very weak and using the walker with assistance. OBJECTIVE: VITAL SIGNS: Temperature 98, pulse 82, respirations are 20, pulse ox 99%, and blood pressure 136/69. HEART: Regular rate and rhythm with 2/6 systolic ejection murmur. LUNGS: Clear. ABDOMEN: Soft. EXTREMITIES: No edema. LABORATORY DATA: None. ASSESSMENT: 1. Status post total right hip replacement, postoperative day #7. 2. 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 3. Status post kidney transplant rejection, and now on peritoneal dialysis. 4. Hypertension. 5. Avascular necrosis of the right hip. 6. History of gout. 7. Hyperlipidemia. PLAN: 1. Continue all present medications. 2. Still having issues transferring the patient to [facility]. The patient is unable to get out of bed and ambulate on his own. Still requiring assistance. He has made great progress. His is unable to assist him. She is elderly and on multiple medication and is an insulin-dependent diabetic. Hopefully arrangements can be made today for transfer to rehab. Job ID: [id number]
[2018-12-07] MEDS: Polyethylene Glycol 3350 17 GM Packet PO PRN (17:51)
[2018-12-07] MEDS: traMADol HCl 50 MG TAB PO PRN (20:46)
[2018-12-08] MEDS: Sevelamer Carbonate 800 MG TAB PO SCH ×3 (09:07→17:09)
[2018-12-08] MEDS: predniSONE 5 MG TAB PO SCH (09:07)
[2018-12-08] MEDS: Allopurinol 300 MG TAB PO SCH (09:07)
[2018-12-08] MEDS: Aspirin Chewable 81 MG TAB PO SCH ×2 (09:09→20:59)
[2018-12-08] MEDS: Ferrous Gluconate 324 MG TAB PO SCH ×2 (09:10→20:58)
[2018-12-08] MEDS: Senokot S 8.6-50 MG TAB PO SCH ×2 (09:10→20:58)
[2018-12-08] MEDS: Tamsulosin HCl 0.4 MG CAP PO SCH (09:10)
[2018-12-08] MEDS: Multivitamin W/ Minerals 1 TAB PO SCH (09:10)
[2018-12-08] MEDS: Sodium Bicarbonate Tab 325 MG TAB PO SCH ×2 (09:10→20:59)
[2018-12-08] MEDS: Magnesium Oxide 400 MG TAB PO SCH (09:10)
[2018-12-08] MEDS: Rosuvastatin 5 MG TAB PO SCH (09:10)
[2018-12-08] MEDS: Calcitriol 0.25 MCG CAP PO SCH (09:10)
[2018-12-08] MEDS: Lactinex Tablet PO SCH (09:10)
[2018-12-08] MEDS: Ergocalciferol 1.25 MG(50,000 UNITS) CAP PO SCH (09:13)
[2018-12-08] MEDS: NIFEdipine XL 30 MG TAB PO SCH (09:14)
[2018-12-08] MEDS: Tacrolimus 1 MG CAP PO SCH (09:14)
--- NOTE | 2018-12-08 09:48 | PRG ---
DATE OF SERVICE: 12/08/2018 SUBJECTIVE: Mr. Gonsalves is a 68-year-old white male with ESRD and followed up for his peritoneal dialysis. He did well with the peritoneal dialysis last night. He recently had right hip surgery. He is being evaluated by Rehab and they were told that he might not qualify for inpatient rehab. He was offered a Swing Bed in [place], but the family declines to go there. They plan to just bring him home with home PT. No other complaints today. No chest pain or shortness of breath. OBJECTIVE: VITAL SIGNS: Blood pressure is 162/74, heart rate 72, respiratory rate 16, temperature 97.9, and pulse ox 99%. GENERAL EXAM: Noted to be awake, alert, comfortable, not in distress. SKIN: Adequate turgor. HEENT: He has pinkish conjunctivae. Anicteric sclerae. NECK: No neck mass. No carotid bruits. No JVD. CHEST: No deformities. LUNGS: Clear breath sounds. No wheezing. No crackles. HEART: Normal sinus rhythm. He does have a grade 2/6 systolic murmur. No gallops. No rubs. ABDOMEN: Globular, soft, nontender. Positive for PD catheter. EXTREMITIES: No edema. MEDICATIONS: Medications of December 08, 2018, was reviewed. LABORATORY DATA: Laboratories of December 04, 2018; white count 6.2, hemoglobin 9.66. December 03, 2018; sodium 134, potassium 3.7, chloride 96, carbon dioxide 28, BUN 78, creatinine is 4.42, glucose 115, calcium 9.2. ASSESSMENT AND PLAN: 1. End-stage renal disease, stable. We will continue with current peritoneal dialysis. Again, fluid removal only as tolerated by this patient. 2. Anemia. The patient currently on his weekly Epogen. No changes to be made. 3. Status post right hip surgery-continue physical therapy. Possibility of the patient going home with home PT remains. We will recheck basic metabolic panel and CBC in the morning. Job ID: [id number]
--- NOTE | 2018-12-08 10:30 | PRG ---
DATE OF SERVICE: 12/08/2018 SUBJECTIVE: The patient is feeling well. He is anxious to be transferred. Having difficulty with insurance. Continue to receive PT. Making slow progress. OBJECTIVE: VITAL SIGNS: Temperature 97.9, pulse 72, respirations 16, pulse ox 99, and blood pressure 162/74. HEART: Regular rate and rhythm. LUNGS: Clear. ABDOMEN: Soft. EXTREMITIES: With no edema. LABORATORY DATA: None. ASSESSMENT: 1. Status post right total hip replacement, postoperative day #8. 2. 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 3. Status post kidney transplant rejection and now on peritoneal dialysis. 4. Hypertension. 5. Avascular necrosis of the right hip. 6. History of gout. 7. Hyperlipidemia. PLAN: If the patient is unable to be transferred, we may have to discharge the patient to home with home health. Not the optimal situation for the patient. We will need to continue to receive physical therapy to maximize postop recovery. We will continue to follow. Job ID: [id number]
[2018-12-08] MEDS: traMADol HCl 50 MG TAB PO PRN ×2 (13:23→21:00)
[2018-12-08] MEDS: Polyethylene Glycol 3350 17 GM Packet PO PRN (17:15)
[2018-12-09] MEDS: traMADol HCl 50 MG TAB PO PRN ×2 (03:16→08:26)
[2018-12-09 05:47] LABS: #Eosinphils 0.3 thou/uL (0.0-0.7); #Lymphocytes 1.3 thou/uL (1.20-3.40); #Monocytes 0.6 thou/uL (0.11-0.59); #Neutrophils 3.9 thou/uL (1.40-6.50); %Basophils 0.5 % (0.0-1.0); %Lymphocytes 20.8 % (21.0-51.0); %Monocytes 9.5 % (0.0-10.0); %Neutrophils 64.3 % (42.0-75.0); Hemoglobin 8.8 g/dL (14.0-18.0); Mean Corpuscular HGB CONC 33.1 g/dL (32.0-36.0); Mean Corpuscular Hemoglobin 34.7 pg (27.0-31.0); Mean Platelet Volume 6.7 fL (7.4-10.4); Platelet Count 203 thou/uL (130-400); Red Blood Cell (RBC) Count 2.52 mill/uL (4.70-6.10)
[2018-12-09 06:11] LABS: Anion Gap 14 mmol/L (10-20); BUN (Urea Nitrogen) 89 mg/dL (8.4-25.7); Calc. Creatinine Clearance 22 mL/min (70-130); Calcium 8.7 mg/dL (7.8-10.44); Carbon Dioxide 30 mmol/L (23-31); Chloride 95 mmol/L (98-107); Estimated GFR-MDRD 15; Glucose 99 mg/dL (80-115); Potassium 3.6 mmol/L (3.5-5.1); Sodium 135 mmol/L (136-145)
[2018-12-09] MEDS: Sodium Bicarbonate Tab 325 MG TAB PO SCH (08:24)
[2018-12-09] MEDS: Sevelamer Carbonate 800 MG TAB PO SCH ×2 (08:24→12:31)
[2018-12-09] MEDS: Senokot S 8.6-50 MG TAB PO SCH (08:24)
[2018-12-09] MEDS: Rosuvastatin 5 MG TAB PO SCH (08:24)
[2018-12-09] MEDS: Ferrous Gluconate 324 MG TAB PO SCH (08:24)
[2018-12-09] MEDS: Magnesium Oxide 400 MG TAB PO SCH (08:24)
[2018-12-09] MEDS: Lactinex Tablet PO SCH (08:25)
[2018-12-09] MEDS: Calcitriol 0.25 MCG CAP PO SCH (08:25)
[2018-12-09] MEDS: predniSONE 5 MG TAB PO SCH (08:25)
[2018-12-09] MEDS: Multivitamin W/ Minerals 1 TAB PO SCH (08:25)
[2018-12-09] MEDS: Tamsulosin HCl 0.4 MG CAP PO SCH (08:25)
[2018-12-09] MEDS: NIFEdipine XL 30 MG TAB PO SCH (08:25)
[2018-12-09] MEDS: Allopurinol 300 MG TAB PO SCH (08:25)
[2018-12-09] MEDS: Tacrolimus 1 MG CAP PO SCH (08:26)
[2018-12-09] MEDS ORDERED: EPOETIN ALFA-EPBX (ESRD) 4,000 UNIT/ML VIAL SC SCH (08:32)
[2018-12-09] MEDS: Aspirin Chewable 81 MG TAB PO SCH (09:00)
--- NOTE | 2018-12-09 09:18 | PRG ---
DATE OF SERVICE: 12/09/2018 SERVICE: Renal Medicine. SUBJECTIVE: Mr. Gonsalves is a 68-year-old white male with ESRD and underwent right hip surgery. We are following him up for his maintenance peritoneal dialysis. He is doing well with this peritoneal dialysis. However, we noted some fibrin in the PD fluid. For that reason, we will start adding heparin in the PD fluid again. No complaints of chest pain or shortness of breath. OBJECTIVE: VITAL SIGNS: Blood pressure 153/72, heart rate 72, respiratory rate 18, temperature 98, and pulse ox 97%. GENERAL: Noted to be awake, alert, comfortable, not in overt distress. SKIN: Adequate turgor. HEENT: He has slightly pale conjunctivae. Anicteric sclerae. NECK: No neck mass. No carotid bruits. No JVD. CHEST: No deformities. LUNGS: Clear breath sounds. HEART: Normal sinus rhythm. No murmur. No gallops. No rubs. ABDOMEN: Globular, soft, and nontender. No masses. EXTREMITIES: No edema. No deformities. MEDICATIONS: Medications of December 09, 2018, reviewed. LABORATORY DATA: Laboratories of December 09, 2018; white count 6, hemoglobin 8.8. Sodium 135, potassium 3.6, chloride 95, carbon dioxide 30, BUN 89, creatinine 3.88, glucose 99, and calcium 8.7. ASSESSMENT AND PLAN: 1. End-stage renal disease, stable. We will continue current peritoneal dialysis. We will continue the same PD regimen except we will add heparin - 500 units/L of PD fluid. 2. Anemia. We will increase Epogen to 10,000 units subcu every week. 3. Status post right hip surgery, doing well. Awaiting rehab placement with this patient. Overall, agree with current management. Job ID: [id number]
[2018-12-09 11:15] VITALS: BP 137/68; TEMP 97.3
[2018-12-09] MEDS ORDERED: EPOETIN ALFA-EPBX (ESRD) 10,000 UNIT/ML VIAL SC SCH (18:00)
== END 2018-12-09 13:47 | DRG 469 ==
LOC: EDSTATUS 15:30 → SURG A 11-30 05:41 → SURG B 11-30 10:59
PROVIDERS: ADMIT Orthopaedic Surgery; ATTEND Orthopaedic Surgery
PROC: 0SR9049 Replacement of Right Hip Joint with Ceramic on Polyethylene Synthetic Substitute, Cemented, Open Approach (ICD-10-PCS; principal; 2018-11-30)
PROC: 3E1M39Z Irrigation of Peritoneal Cavity using Dialysate, Percutaneous Approach (ICD-10-PCS; 2018-12-03)
DX: M16.11 Unilateral primary osteoarthritis, right hip (principal); N18.6 End stage renal disease; I12.0 Hypertensive chronic kidney disease with stage 5 chronic kidney disease or end stage renal disease; M90.551 Osteonecrosis in diseases classified elsewhere, right thigh; M10.9 Gout, unspecified; J45.909 Unspecified asthma, uncomplicated; H91.90 Unspecified hearing loss, unspecified ear; F32.9 Major depressive disorder, single episode, unspecified; E78.5 Hyperlipidemia, unspecified; D63.1 Anemia in chronic kidney disease; D46.9 Myelodysplastic syndrome, unspecified; Z79.52 Long term (current) use of systemic steroids; Z94.0 Kidney transplant status; Z99.2 Dependence on renal dialysis; Z79.82 Long term (current) use of aspirin; Z79.899 Other long term (current) drug therapy; Z88.1 Allergy status to other antibiotic agents; Z91.041 Radiographic dye allergy status; Z87.891 Personal history of nicotine dependence
CPT/HCPCS: 36415; 80048; 85025; 85027; 86850; 86900; 86901; C1776; J0690; J2001; J2250; J2370; J2405; J2597; J2704; J3010; J3370; J3490; J7050; J7507; J7512; Q5105

== ENCOUNTER 2019-07-05 13:01 | Outpatient (CLI) | payer MEDICARE ==
--- NOTE | 2019-07-05 14:16 | MRI ---
MR the lumbar spine without contrast: 07/05/2019 History: Lumbar stenosis with a neurogenic claudication, low back pain COMPARISON: None. TECHNIQUE: Multiplanar multisequence MR images were obtained of lumbar spine without IV contrast FINDINGS: On the basis of 5 lumbar type vertebral bodies, conus medullaris terminates at theL1 level. Sagittal STIR imaging demonstrates increased signal intensity involving inferior endplate of L4 and s uperior endplate of L5 laterally on the left, likely on the basis of edematous degenerative endplate change. Similar findings are seen at the L1-2 level, right greater than left, also likely on the basis of prominent degenerative edematous endplate change. T12-L1:There is disc desiccation and minimal disc bulge. No significant central canal or neural lesia inal stenosis. L1-2:There is disc space narrowing with disc desiccation and mild disc bulge. There is a superimposed foraminal disc protrusion on the left. Bilateral facet hypertrophy is noted. Moderate/severe central canal stenosis. Moderate right neural foraminal stenosis. L2-3:There is disc space narrowing with disc desiccation and disc bulge. There is prominent bilateral facet hypertrophy. There is severe central canal stenosis, moderate/severe right neural foraminal stenosis, and mild left neural foraminal stenosis. L3-4:There is disc space narrowing with disc desiccation and disc bulge. There is prominent bilateral facet hypertrophy with moderate/severe central canal stenosis, mild right neural foraminal stenosis and moderate left neural foraminal stenosis. L4-5:There is prominent bilateral facet hypertrophy, left greater than right. There is disc space jovita rowing and disc desiccation with disc bulge causing severe central canal stenosis. There is mild right and severe left neural foraminal stenosis. L5-S1:Prominent bilateral facet hypertrophy, left greater than right. There is an associated small sy novial cyst emanating from the medial aspect of the left facet joint. Disc space narrowing and disc desiccation with disc bulge and small superimposed left paracentral disc protrusion. Moderate central canal stenosis/left lateral recess stenosis. Moderate/severe bilateral neural foraminal stenosis, left greater than right. Image retroperitoneal structures demonstratemarkedly atrophic kidneys containing bilateral small cyst s. There is a suggestion of free fluid within the pelvis and possibly adjacent to the inferior aspect of the right lobe of the liver. IMPRESSION: 1. Severe multilevel degenerative change within the lumbar spine 2. Nonspecific free fluid suspected in the pelvis and right upper quadrant. This nonspecific ascites could be best assessed via CT.
== END 2019-07-05 13:02 | disposition home or self-care (01) ==
LOC: BICMRI 13:01
PROVIDERS: ATTEND Specialist
DX: M48.062 Spinal stenosis, lumbar region with neurogenic claudication (principal); M47.816 Spondylosis without myelopathy or radiculopathy, lumbar region
CPT/HCPCS: 72148

== ENCOUNTER 2019-08-05 08:05 | Day surgery (SDC) | payer MEDICARE ==
[2019-08-04 14:22] VITALS: BMI 26.4
[2019-08-05 08:58] LABS: Hemoglobin 8.9 g/dL (14.0-18.0); Mean Corpuscular HGB CONC 32.8 g/dL (32.0-36.0); Mean Corpuscular Hemoglobin 35.5 pg (27.0-31.0); Mean Platelet Volume 7.5 fL (7.4-10.4); Platelet Count 131 thou/uL (130-400); RBC Distribution Width 14.8 % (11.5-14.5); White Blood Cell (WBC) Count 4.1 thou/uL (4.8-10.8)
[2019-08-05 08:59] LABS: #Lymphocytes 0.5 thou/uL (1.20-3.40); #Monocytes 0.2 thou/uL (0.11-0.59); #Neutrophils 3.3 thou/uL (1.40-6.50); %Lymphocytes 12.8 % (21.0-51.0); %Neutrophils 81.1 % (42.0-75.0)
[2019-08-05 09:26] LABS: Anisocytosis MODERATE=16-30 cells (100X) (0-5/hpf); MDiff Complete? YES; Ovalocytes SLIGHT = 2-5 cells (100X) (0-1/hpf); Poikilocytosis SLIGHT = 6-15 cells (100X) (0-5/hpf); Tear Drops SLIGHT = 2-5 cells (100X) (0-1/hpf)
[2019-08-05] MEDS ORDERED: PROPOFOL 200 MG/20 ML VIAL ONE (09:39)
--- NOTE | 2019-08-05 11:47 | OP ---
DATE OF PROCEDURE: 08/05/2019 PREPROCEDURE DIAGNOSES: 1. Chronic anemia with renal failure. 2. Recent drop in hemoglobin, it had been 7.3 two weeks ago, had his Mircera injection, did not see an increase, and it was still 7.3 last week. He reported black stool with Hemoccult-positive stool. 3. History of myelodysplastic syndrome as well, on prednisone and baby aspirin. 4. Normal iron studies on 07/28/2019. 5. Colonoscopy in 2017 showed normal exam. 6. Hemoglobin today at the hospital is 8.9, MCV is 108. POSTPROCEDURE DIAGNOSES: 1. Small antral erosion with heme staining, but no active bleeding. This is less than a millimeter in size. 2. Otherwise normal esophagogastroduodenoscopy. As he is on aspirin and prednisone, he is at risk for ulcers. The patient is going to have followup hemoglobins with dialysis. ANESTHESIA: TIVA. PROCEDURE IN DETAIL: After the patient was informed of the risks, benefits, and possible complications of endoscopy including perforation, bleeding, reaction to medication, and aspiration, informed consent was obtained. The patient was brought to the endoscopy suite, where he was sedated in gradual fashion. Once he was comfortable, a bite block was placed inside his orifice. Endoscope was advanced to the esophagus, stomach, and 2nd and 3rd portions of the duodenum and slowly removed. The esophagus was normal. Stomach was notable for a wisp of heme staining in the antrum of the stomach and a small erosion was noted. There was no visible vessel. Retroflexed views in the stomach were normal. There was normal distensibility. There was no overt gastritis. The duodenum was normal with 2nd and 3rd portions with no bleeding signs. The scope was removed. The patient was brought to recovery room in stable condition. RECOMMENDATIONS: 1. Start PPI therapy. 2. Follow up hemoglobin and hematocrit with the dialysis doctor. 3. Continue iron and Procrit per dialysis doctor. Job ID: [id number]
== END 2019-08-05 11:55 | disposition home or self-care (01) ==
LOC: SDC 08:05
PROVIDERS: ATTEND Internal Medicine Gastroenterology
PROC: 0DJ08ZZ Inspection of Upper Intestinal Tract, Via Natural or Artificial Opening Endoscopic (ICD-10-PCS; principal; 2019-08-05)
DX: K25.4 Chronic or unspecified gastric ulcer with hemorrhage (principal); D46.9 Myelodysplastic syndrome, unspecified; I35.0 Nonrheumatic aortic (valve) stenosis; N19 Unspecified kidney failure; D50.0 Iron deficiency anemia secondary to blood loss (chronic); Z79.52 Long term (current) use of systemic steroids; Z79.82 Long term (current) use of aspirin; Z79.899 Other long term (current) drug therapy; Z88.1 Allergy status to other antibiotic agents; Z91.041 Radiographic dye allergy status; Z94.0 Kidney transplant status
CPT/HCPCS: 36415; 85025; J2704

== ENCOUNTER 2019-08-31 19:46 | Emergency (ER) | payer MEDICARE ==
[2019-08-31] MEDS ORDERED: Ondansetron PF 4 MG/2 ML Vial ONE (20:49)
[2019-08-31 21:14] LABS: #Eosinphils 0.3 thou/uL (0.0-0.7); #Lymphocytes 0.8 thou/uL (1.20-3.40); #Monocytes 0.4 thou/uL (0.11-0.59); #Neutrophils 2.7 thou/uL (1.40-6.50); %Basophils 0.5 % (0.0-1.0); %Eosinophils 6.8 % (0.0-10.0); %Lymphocytes 19.2 % (21.0-51.0); %Monocytes 9.3 % (0.0-10.0); %Neutrophils 64.2 % (42.0-75.0); Mean Corpuscular HGB CONC 33.2 g/dL (32.0-36.0); Mean Platelet Volume 7.3 fL (7.4-10.4); Platelet Count 143 thou/uL (130-400); RBC Distribution Width 13.3 % (11.5-14.5); Red Blood Cell (RBC) Count 2.57 mill/uL (4.70-6.10); White Blood Cell (WBC) Count 4.2 thou/uL (4.8-10.8)
[2019-08-31 21:31] LABS: ALT (SGPT) 11 U/L (8-55); AST (SGOT) 13 U/L (5-34); Albumin 3.5 g/dL (3.4-4.8); Alkaline Phosphatase 48 U/L (40-110); Anion Gap 21 mmol/L (10-20); BUN (Urea Nitrogen) 91 mg/dL (8.4-25.7); Bilirubin, Total 0.7 mg/dL (0.2-1.2); Calc. Creatinine Clearance 0 mL/min (70-130); Carbon Dioxide 28 mmol/L (23-31); Chloride 91 mmol/L (98-107); Estimated GFR-MDRD 4; Globulin 2.8 g/dL (2.4-3.5); Glucose 92 mg/dL (83-110); Lipase 61 U/L (8-78); Magnesium 3.6 mg/dL (1.6-2.6); Potassium 4.3 mmol/L (3.5-5.1); Protein, Total 6.3 g/dL (5.8-8.1); Sodium 136 mmol/L (136-145)
== END 2019-08-31 23:00 | disposition home or self-care (01) ==
LOC: ERS 19:46
DX: R11.2 Nausea with vomiting, unspecified (principal); M54.5 Low back pain; D64.9 Anemia, unspecified; E78.5 Hyperlipidemia, unspecified; I10 Essential (primary) hypertension; Z94.0 Kidney transplant status; Z87.891 Personal history of nicotine dependence; Z79.899 Other long term (current) drug therapy
CPT/HCPCS: 36415; 80053; 83690; 83735; 85025; 96374; J2405

== ENCOUNTER 2019-09-06 21:32 | Observation (INO) | payer MEDICARE ==
[2019-09-06] MEDS ORDERED: Promethazine HCl 25 MG/ML VIAL ONE (22:12)
[2019-09-06 22:19] LABS: #Eosinphils 0.3 thou/uL (0.0-0.7); #Lymphocytes 0.9 thou/uL (1.20-3.40); #Monocytes 0.3 thou/uL (0.11-0.59); %Basophils 0.6 % (0.0-1.0); %Eosinophils 7.2 % (0.0-10.0); %Lymphocytes 19.2 % (21.0-51.0); %Monocytes 7.2 % (0.0-10.0); %Neutrophils 65.9 % (42.0-75.0); Hemoglobin 9.8 g/dL (14.0-18.0); Mean Corpuscular HGB CONC 32.9 g/dL (32.0-36.0); Platelet Count 158 thou/uL (130-400); RBC Distribution Width 13.4 % (11.5-14.5); Red Blood Cell (RBC) Count 2.79 mill/uL (4.70-6.10); White Blood Cell (WBC) Count 4.5 thou/uL (4.8-10.8)
[2019-09-06 22:44] LABS: ALT (SGPT) 11 U/L (8-55); AST (SGOT) 11 U/L (5-34); Albumin 3.8 g/dL (3.4-4.8); Alkaline Phosphatase 52 U/L (40-110); BUN (Urea Nitrogen) 82 mg/dL (8.4-25.7); Bilirubin, Total 0.6 mg/dL (0.2-1.2); Calc. Creatinine Clearance 0 mL/min (70-130); Calcium 8.9 mg/dL (7.8-10.44); Carbon Dioxide 34 mmol/L (23-31); Chloride 90 mmol/L (98-107); Estimated GFR-MDRD 4; Globulin 2.4 g/dL (2.4-3.5); Glucose 108 mg/dL (83-110); Lipase 62 U/L (8-78); Magnesium 3.7 mg/dL (1.6-2.6); Potassium 4.2 mmol/L (3.5-5.1); Protein, Total 6.2 g/dL (5.8-8.1); Sodium 139 mmol/L (136-145)
[2019-09-06 23:07] LABS: CKMB 11.3 ng/mL (0-6.6)
[2019-09-06 23:10] LABS: Anion Gap 19 mmol/L (10-20)
[2019-09-07] MEDS ORDERED: Aspirin 325 MG TAB ONE (00:17)
[2019-09-07] MEDS ORDERED: Nitroglycerin 0.4 MG TAB (25 Tab Bottle) PO PRN (01:36)
[2019-09-07] MEDS ORDERED: Ondansetron ODT 4 MG TAB PO PRN (01:39)
[2019-09-07] MEDS ORDERED: Ondansetron PF 4 MG/2 ML Vial IVP PRN (01:39)
[2019-09-07] MEDS ORDERED: Calcium Carbonate 500 MG ChewTAB PO PRN (01:39)
[2019-09-07] MEDS ORDERED: Acetaminophen 325 MG TAB PO PRN (01:39)
[2019-09-07] MEDS ORDERED: Aspirin 81 mg Enteric Coated Tablet PO SCH ×2 (01:45→21:00)
[2019-09-07] MEDS ORDERED: D5 1/2 NS 500 ML IV SCH (01:45)
[2019-09-07 02:36] VITALS: BMI 24.0
--- NOTE | 2019-09-07 03:29 | HP ---
PRIMARY CARE PHYSICIAN: Dr. Jacques Whyte. PRIMARY ETHICS INSTRUCTOR: Dr. Kevan Harris. PRIMARY DRIER BELT CONVEYOR: Dr. Valdez. PRIMARY MIXING PAN TENDER: Dr. Hinson. CHIEF COMPLAINT: Nausea and vomiting. HISTORY OF PRESENT ILLNESS: The patient is a 69-year-old male with end-stage renal disease, on peritoneal dialysis and chronic pain syndrome, presented to the emergency room with above complaints. Over the last 1 week, the patient has on and off nausea and vomiting. He is unable to keep any food or liquids down. His symptoms are progressively getting worse. He has been getting generally weak and fatigued. According to the family, he has lost approximately 20 pounds over the last 1 month. He had some abdominal cramping. He had a normal bowel movement this morning. The nausea and vomiting gets worse, especially 30 minutes after eating or drinking. He was recently started on Tylenol No. 4 along with muscle relaxant by Neurosurgery. He was evaluated in the emergency room last week and was started on Zofran with minimal relief. No chest pain, palpitations, lightheadedness, dizziness, syncope, or diaphoresis reported. PAST MEDICAL HISTORY: 1. End-stage renal disease, on peritoneal dialysis. 2. Chronic low back pain. 3. Myelodysplastic syndrome. 4. Aortic valve stenosis. 5. Chronic anemia. 6. Hyperlipidemia. 7. Hypertension. Antihypertensives were recently discontinued due to blood pressure in low range. 8. Gout. PAST SURGICAL HISTORY: 1. Renal transplant in 2002. 2. Right shoulder surgery. 3. Right hip surgery. 4. Peritoneal dialysis catheter placement. ALLERGIES: THE PATIENT IS ALLERGIC TO FLUOROQUINOLONES, AND IODINE. CURRENT HOME MEDICATIONS: 1. Tylenol as needed. 2. Allopurinol 150 mg daily. 3. Calcitriol 0.25 mcg daily. 4. Colace 100 mg at bedtime. 5. Vitamin D2 as directed. 6. Claritin as needed. 7. Magnesium oxide 400 mg daily. 8. Mircera every 4 weeks. 9. Zofran as needed. 10. MiraLAX as needed. 11. Crestor 10 mg daily. 12. Renvela as directed. 13. Sodium bicarbonate as directed. 14. Flomax 0.4 mg daily. 15. Tramadol as needed. 16. Tylenol No. 4 as needed. 17. Tizanidine as directed. SOCIAL HISTORY: The patient currently lives at home with his family. He is a former smoker. He quit drinking approximately 3 months ago. Denies any drug use. He makes his own decision with the help of his family. He is full code. FAMILY HISTORY: Negative for premature coronary artery disease. REVIEW OF SYSTEMS: All other review of systems was reviewed and were found negative. PHYSICAL EXAMINATION: VITAL SIGNS: Temperature 98.0, respirations of 18, pulse rate of 69 with a blood pressure of 106/56, and O2 saturation 98% on room air. GENERAL: A 69-year-old male in no apparent distress. HEENT: Head, atraumatic and normocephalic. Sclerae anicteric. Dry mucous membranes. No oral lesion. NECK: Supple. No JVD. No carotid bruit. LUNGS: Clear to auscultation bilaterally. No wheezing, rales, or rhonchi. HEART: S1, S2 present. Regular rate and rhythm; 3/6 systolic murmur over the aortic area. No heaves or pulsation. ABDOMEN: Soft, nontender. Bowel sounds present. No rebound or guarding. No costovertebral angle tenderness. EXTREMITIES: No edema or calf tenderness. NEUROLOGIC: Grossly nonfocal. Moves all 4 extremities. PSYCHIATRIC: Alert, awake, and oriented x3. SKIN: Warm and dry. LYMPH NODES: No palpable lymph nodes in the neck. PERIPHERAL VASCULAR: Radial pulses palpable bilaterally. MUSCULOSKELETAL: No joint swelling or tenderness. LABORATORY FINDINGS: CBC showed WBC 4.5 with hemoglobin 9.8, hematocrit 29.7, and platelet of 158. Chemistry showed sodium 139, potassium 4.2, chloride 90, bicarb 34, BUN 82, creatinine 13.43. Troponin of 0.154, CK-MB 11.3. Creatine kinase 256. Chest x-ray; by my review was negative for acute findings. EKG; by my review showed sinus rhythm with first-degree AV block and right bundle-branch block. IMPRESSION: 1. Persistent nausea and vomiting of unclear etiology. 2. Elevated troponin. The patient denies any chest discomfort. 3. Chronic anemia secondary to renal insufficiency/myelodysplastic syndrome. 4. End-stage renal disease, on peritoneal dialysis. 5. Abnormal EKG. 6. Gout. 7. Chronic low back pain, on muscle relaxant as well as Tylenol No. 4. 8. Benign prostatic hypertrophy. 9. Hyperlipidemia. 10. Secondary hyperparathyroidism secondary to renal disease. PLAN: The patient will be monitored on the telemetry unit. Recently, he had an EGD by Dr. Valdez that showed some antral erosion. He has completed two weeks of PPI. The patient also has history of elevated troponins in the past. However, the troponins this time is more elevated than before. He also has a history of aortic stenosis. An echocardiogram will be obtained. We will consult Cardiology and Gastroenterology. Peritoneal dialysis will be resumed. We will follow the troponins. We will verify home medications and start accordingly. Gentle IV hydration for now. Please note that he has discontinued aspirin, which will be restarted. The patient will require at least 24 hours for stabilization. Orthostatic vitals will be obtained q.a.m. Job ID: [id number]
[2019-09-07 04:40] LABS: #Eosinphils 0.3 thou/uL (0.0-0.7); #Lymphocytes 1.2 thou/uL (1.20-3.40); #Monocytes 0.4 thou/uL (0.11-0.59); #Neutrophils 2.5 thou/uL (1.40-6.50); %Basophils 0.6 % (0.0-1.0); %Eosinophils 7.5 % (0.0-10.0); %Lymphocytes 26.7 % (21.0-51.0); %Monocytes 8.7 % (0.0-10.0); %Neutrophils 56.5 % (42.0-75.0); Hemoglobin 8.7 g/dL (14.0-18.0); Mean Corpuscular Hemoglobin 34.4 pg (27.0-31.0); Mean Platelet Volume 7.4 fL (7.4-10.4); Platelet Count 133 thou/uL (130-400); RBC Distribution Width 13.3 % (11.5-14.5); Red Blood Cell (RBC) Count 2.52 mill/uL (4.70-6.10); White Blood Cell (WBC) Count 4.5 thou/uL (4.8-10.8)
[2019-09-07 04:57] LABS: Lactic Acid 0.9 mmol/L (0.5-2.2)
[2019-09-07] MEDS ORDERED: Polyethylene Glycol 3350 17 GM Packet PO PRN (05:01)
[2019-09-07] MEDS ORDERED: traMADol HCl 50 MG TAB PO PRN (05:01)
[2019-09-07 05:02] LABS: ALT (SGPT) 7 U/L (8-55); AST (SGOT) 11 U/L (5-34); Albumin 3.1 g/dL (3.4-4.8); Alkaline Phosphatase 42 U/L (40-110); Anion Gap 17 mmol/L (10-20); BUN (Urea Nitrogen) 86 mg/dL (8.4-25.7); Bilirubin, Total 0.4 mg/dL (0.2-1.2); Calc. Creatinine Clearance 6 mL/min (70-130); Calcium 8.7 mg/dL (7.8-10.44); Carbon Dioxide 35 mmol/L (23-31); Chloride 92 mmol/L (98-107); Estimated GFR-MDRD 4; Globulin 2.7 g/dL (2.4-3.5); Glucose 122 mg/dL (83-110); Potassium 4.3 mmol/L (3.5-5.1); Protein, Total 5.8 g/dL (5.8-8.1); Sodium 140 mmol/L (136-145)
[2019-09-07 05:04] LABS: Troponin I 0.191 ng/mL (< 0.028)
[2019-09-07] MEDS ORDERED: Loratadine 10 MG TAB PO PRN (05:15)
[2019-09-07] MEDS ORDERED: Allopurinol 300 MG TAB PO SCH (09:00)
[2019-09-07] MEDS ORDERED: Rosuvastatin 5 MG TAB PO SCH (09:00)
[2019-09-07] MEDS ORDERED: Epoetin (ESRD) 20,000 UNITS/ML SC SCH (09:15)
--- NOTE | 2019-09-07 09:34 | RAD ---
2 VIEWS OF ABDOMEN AND SINGLE VIEW OF CHEST: Date: 09/07/2019 COMPARISON: 10/07/2009. HISTORY: Nausea and vomiting. FINDINGS: Supine and decubitus views of the abdomen, and upright view of the chest were performed. There is a n onspecific, nonobstructed bowel gas pattern. There are a few air fluid levels on the decubitus film, likely within the colon. The heart is normal in size. There is no evidence of consolidation, mass, or pleural effusion. Hardwa re is seen in the right shoulder. IMPRESSION: Nonobstructed bowel gas pattern. POS: [facility]
--- NOTE | 2019-09-07 09:37 | CON ---
DATE OF CONSULTATION: 09/07/2019 HISTORY OF PRESENT ILLNESS: Mr. Gonsalves is a 69-year-old white male with ESRD and currently on peritoneal dialysis. He was admitted for persistent nausea and vomiting. He has been having nausea and vomiting for one week. His p.o. intake is somewhat limited. His blood pressure, according to his , has been low at home. We are being consulted for his maintenance of his peritoneal dialysis. He did miss peritoneal dialysis last night. I feel there is no emergent indication to do peritoneal dialysis today. We will schedule him for tonight. He is currently receiving IV hydration. I have decided to increase his IV fluid from 50 mL an hour to 100 mL/h. REVIEW OF SYSTEMS: Positive for nausea and vomiting. Decreased appetite. Decreased energy level. No headache. No diplopia. No syncopal episode. No productive cough. No dysuria. No urinary frequency. No hematochezia. No melena. No abdominal pain. No syncopal episode. No sore throat. No cold. MEDICATIONS: 1. Acetaminophen 650 q.4h p.r.n. 2. Allopurinol 150 mg once a day. 3. Aspirin 81 mg tablet once a day. 4. Tums 1000 mg q.4h p.r.n. 5. D5 half-normal currently at 50 mL an hour. 6. Zofran 4 mg IV q.6h p.r.n. 7. Protonix 40 mg tablet once a day. 8. Rosuvastatin 10 mg daily. 9. Tramadol p.r.n. PAST MEDICAL HISTORY: Includes the following; 1. DJD. 2. ESRD secondary to failed renal transplant. 3. Longstanding hypertension. 4. Hypothyroidism. 5. Gout. 6. Depression. 7. Chronic anemia from chronic renal failure and myelodysplastic syndrome. 8. Hypertension. 9. Originally, ESRD was from FSGS. PAST SURGICAL HISTORY: 1. Status post PD catheter placement. 2. Status post upper and lower GI endoscopy. 3. Status post cuffed dialysis catheter placement. 4. Status post umbilical hernia repair. 5. Status post renal biopsy of tolowa dee-ni' kidney. 6. Status post cadaveric renal transplant. 7. Status post PD catheter placement. 8. Status post right hip arthroplasty. 9. Status post renal allograft biopsy. SOCIAL HISTORY: The patient is , 3 children. He lives in [place]. 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 He smoked for 8 years, one pack a day. Alcohol occasional. No IV drug abuse. Status post blood transfusion. Education, finished college. FAMILY HISTORY: No family history of ESRD. ALLERGIES: CIPRO AND CONTRAST. TRAUMA: None. IMMUNIZATIONS: Up-to-date. HOSPITALIZATIONS: Please see past medical history. PHYSICAL EXAMINATION: VITAL SIGNS: Blood pressure is now 116/60 supine, heart rate 73, respiratory rate 16, temperature 98.3, and pulse ox 98%. GENERAL: The patient is awake, supine, comfortable, not in distress. SKIN: Adequate turgor. HEENT: Pinkish conjunctivae. Anicteric sclerae. No neck mass. No carotid bruits. No JVD. CHEST: No deformities. LUNGS: Clear breath sounds. No wheezing. No crackles. HEART: Normal sinus rhythm. No murmurs. No gallops. No rubs. ABDOMEN: Globular, soft, nontender. No masses. EXTREMITIES: No edema. No deformities. NEUROLOGIC: The patient is awake and oriented to 3 spheres. Moving all extremities. No tremors. No asterixis. No ataxia. LABORATORY DATA: Laboratories of September 07, 2019; white count 4.5, hemoglobin 8.7, hematocrit 27.1. Sodium 140, potassium 4.3, chloride 92, carbon dioxide 35, BUN 86, creatinine 13.7, glucose 122, calcium 8.7, AST 11, ALT 7, albumin 3.1, troponin I 0.191. ASSESSMENT AND PLAN: 1. End-stage renal disease, stable. We will continue current CCPD regimen. No indication for any emergent peritoneal dialysis this morning. He will be scheduled tomorrow and we will follow his current CCPD home dialysis orders. 2. Nausea and vomiting, slightly improved. Unclear etiology. GI consult has been done. 3. Hypotension - the patient noted to have a low BP at home. I think he is volume depleted. We will increase D5 half-normal saline from 50 to 100 mL an hour. We will plan to use only 1.5% PD solution to minimize ultrafiltration with this peritoneal dialysis. 4. Anemia. We will resume Epogen, transfuse for hemoglobin of less than 8. Start Epogen at 10,000 units subcu every week. 5. Review of his last Kt/V suggests he is adequately dialyzed with the current peritoneal dialysis regimen. Job ID: [id number]
--- NOTE | 2019-09-07 11:00 | CON ---
DATE OF CONSULTATION: 09/07/2019 REQUESTING PHYSICIAN: Dr. Robins. REASON FOR CONSULTATION: Nausea and vomiting. HISTORY OF PRESENT ILLNESS: Dwain Gonsalves Junior is a very pleasant 69-year-old man, admitted to the hospital early this morning with persistent nausea and vomiting for about the past week. He has a history significant for myelodysplastic syndrome as well as end-stage renal disease, on peritoneal dialysis and aortic stenosis. He has chronic back pain. He has seen my partner, Dr. Valdez in the past. He had a colonoscopy in 2017, which was normal. He had a recent EGD a month ago on 08/05/2019, performed for evaluation of anemia. He had only a single small antral erosion, and was otherwise a normal exam. He completed 2 weeks of PPI therapy, finished that a week or two ago. He reports that he had an upcoming back surgery that has had to be delayed and so about a week ago, he was started on Tylenol No.4, which he has been taking once or twice a day, as well as a muscle relaxant, I believe this is tizanidine. Over about the past week since then, he has been dealing with nausea and a few episodes of vomiting, which worsened over the past couple of days and led to progressive fatigue. He usually get nauseated early in the morning, will have brief relief after eating breakfast, but then he will end up vomiting up his food. This is nonbloody emesis. He has had a bit of constipation as well recently, but feels this is well controlled with MiraLAX. There is no significant abdominal pain with any of this. There has been no fever, no shortness of breath or chest pain. Upon admission, his hemoglobin is at his baseline at 8.7. He does have mild elevation in troponin as well as CK-MB. He missed peritoneal dialysis last night, but that is planned for this evening. REVIEW OF SYSTEMS: Full review of systems including constitutional, head, eyes, ears, nose, throat, GI, , cardiovascular, respiratory, musculoskeletal, neurologic systems is negative except as noted in the HPI. PAST MEDICAL HISTORY: 1. End-stage renal disease, on peritoneal dialysis. 2. Chronic low back pain. 3. Myelodysplastic syndrome. 4. Aortic valve stenosis. 5. Chronic anemia. 6. Hyperlipidemia. 7. Hypertension. 8. Gout. 9. Renal transplant in 2002. 10. Right shoulder surgery. 11. Right hip surgery. 12. Peritoneal dialysis catheter placement. ALLERGIES: FLUOROQUINOLONES AND IODINE CONTRAST. HOME MEDICATIONS: 1. Tylenol No.4 as needed. 2. Tizanidine. 3. Allopurinol. 4. Calcitriol. 5. Colace 100 mg at bedtime. 6. MiraLAX p.r.n. 7. Vitamin D2. 8. Claritin. 9. Magnesium oxide 400 mg daily. 10. Mircera every four weeks. 11. Zofran p.r.n. 12. Crestor. 13. Renvela. 14. Flomax. 15. Tramadol. SOCIAL HISTORY: The patient lives at home. He is full code. He quit drinking about 3 months ago. He is a former smoker. No drug use. FAMILY HISTORY: Noncontributory. PHYSICAL EXAMINATION: VITAL SIGNS: Temperature 98.3, pulse 73, blood pressure 123/70, 98% oxygen saturation on room air. GENERAL: A 69-year-old man, sitting up in bed comfortably, in no distress. SKIN: No jaundice. No rashes were palpable. HEENT: Eyes; no scleral icterus. Extraocular movements intact. ENT; mucous membranes moist. No oral lesions. LYMPH: No submandibular or supraclavicular lymphadenopathy. Thyroid, nontender to palpation. HEART: Regular rate and rhythm. LUNGS: Clear to auscultation bilaterally. No respiratory distress. ABDOMEN: Mild distention, tympanitic to percussion. Bowel sounds are present. Soft and nontender to palpation throughout the abdomen. PD catheter in place. EXTREMITIES: No peripheral edema. VESSELS: Radial pulses 2+ bilaterally. NEUROLOGIC: Cranial nerves 2 through 12 intact bilaterally. No focal deficits. LABORATORY STUDIES: WBC 4.5, hemoglobin 8.7, platelets 133, MCV 108. Sodium 140, potassium 4.3, BUN 86, creatinine 13.72, glucose 98. Lactic acid 0.9. CK elevated to 256, CK-MB elevated to 11.3, troponin elevated to 0.191. Lipase normal at 62. LFTs normal with total bilirubin 0.4, alkaline phosphatase 42, AST 11, ALT 7, albumin 3.1. EKG, per report, demonstrated first-degree AV block with right bundle branch block, sinus rhythm. I did not personally review the EKG. IMAGING STUDIES: Abdominal x-ray demonstrated a nonspecific nonobstructive bowel gas pattern. ASSESSMENT/PLAN: 1. Nausea and vomiting. 2. Mild erosive gastritis, demonstrated on esophagogastroduodenoscopy in July 2019. 3. Chronic back pain, recently started on opiates. The patient's nausea symptoms seem to correlate with his having started Tylenol No.4 as well as tizanidine in the recent past. This could certainly represent adverse effect of the medication. His constipation aspect is well controlled with MiraLAX as needed. I do not think there would be much value to repeating any upper endoscopy at this point, as findings were really quite mild one month ago. I doubt biliary etiology given the normal LFTs and lack of abdominal pain. At this point, I would recommend discontinuing or minimizing any further opioid medications. We will go ahead and start him back on a daily PPI. Otherwise, continue supportive care. Agree with Cardiac consultation as already planned. We will follow along. Thank you for the consultation. Please call anytime with questions or concerns. Job ID: [id number]
[2019-09-07] MEDS ORDERED: Non-Formulary Item 1 EACH (Sodium Bicarbonate [Sodium Bicarbonate] 650 MG) PO PRN (11:46)
[2019-09-07 11:49] VITALS: BP 155/70; TEMP 98.1
[2019-09-07] MEDS ORDERED: Ergocalciferol 1.25 MG(50,000 UNITS) CAP PO SCH ×2 (12:00→12:15)
[2019-09-07] MEDS ORDERED: EPOETIN ALFA-EPBX (ESRD) 10,000 UNIT/ML VIAL SC SCH (12:00)
[2019-09-07] MEDS ORDERED: Sevelamer Carbonate 800 MG TAB PO SCH (12:00)
[2019-09-07] MEDS ORDERED: Sodium Bicarbonate Tab 325 MG TAB PO PRN (12:08)
--- NOTE | 2019-09-07 12:09 | CON ---
DATE OF CONSULTATION: HISTORY OF PRESENT ILLNESS: The patient is a 69-year-old gentleman with a history of coronary artery disease and aortic stenosis, who presented with recurrent nausea and vomiting. The patient in 2014, underwent a cardiac catheterization. He was found to have mild coronary artery disease. He had a 30% LAD lesion, otherwise free of significant disease. The patient also has a history of end-stage renal disease, and had undergone a renal transplantation. The patient has been seen for the past several years with aortic stenosis. The patient presented with increasing nausea and vomiting. He had recently been started on some several new medications. He is undergoing a GI evaluation. The patient denies having any chest discomfort. The patient denies having any PND or orthopnea. The patient denies having any history of syncope. PAST MEDICAL HISTORY: 1. Coronary artery disease. 2. Aortic stenosis. 3. Hypertension. 4. Hyperlipidemia. 5. Anemia. 6. Gout. 7. Myelodysplastic syndrome. PAST SURGICAL HISTORY: Hip surgery, shoulder surgery. ALLERGIES: FLUOROQUINOLONES AND IODINE. MEDICATIONS: See nursing list. SOCIAL HISTORY: Nonsmoker. REVIEW OF SYSTEMS: 10-point system noticeable for weight loss. Otherwise unremarkable. PHYSICAL EXAMINATION: GENERAL: A well-developed gentleman, in no acute distress. VITAL SIGNS: Blood pressure 123/70. NECK: No jugular venous distention. LUNGS: Clear to auscultation. HEART: Regular rate and rhythm. Normal S1 and S2 with a 3/6 systolic ejection murmur. ABDOMEN: Moderately distended with a peritoneal catheter. EXTREMITIES: Show no edema. LABORATORY DATA: White blood count 4.5, hemoglobin 8.7, hematocrit 27.1, platelets 133. Sodium is 140, potassium 4.3, chloride 92, bicarbonate 35, BUN 86, creatinine 13, glucose 122. Troponin 0.19. EKG revealed him to have normal sinus rhythm with first-degree AV block and right bundle-branch block. IMPRESSION: 1. Recurrent nausea and vomiting. 2. Aortic stenosis. 3. History of coronary artery disease. 4. Myelodysplastic syndrome. 5. End-stage renal disease. 6. Hypertension. This gentleman presents with recurrent nausea and vomiting. He has known aortic stenosis. There is no evidence he is in congestive heart failure. He is asymptomatic. The patient continue to be followed as an outpatient. The patient needs to undergo GI evaluation for his continued nausea and vomiting. We will follow this patient with you through his hospitalization. Landon ID: [id number] MTDD
[2019-09-07] MEDS ORDERED: Docusate 100 MG CAP PO SCH (21:00)
[2019-09-07] MEDS ORDERED: Pantoprazole 40 MG VIAL IVP SCH (21:00)
[2019-09-08] MEDS ORDERED: Non-Formulary Item 1 EACH (Lactobacillus Acidophilus [Probiotic] 1 CAPSULE) PO SCH (09:00)
[2019-09-08] MEDS ORDERED: Lactinex Tablet PO SCH (09:00)
[2019-09-08] MEDS ORDERED: Non-Formulary Item 1 EACH (Magnesium Oxide [Magnesium] 400 MG) PO SCH (09:00)
[2019-09-08] MEDS ORDERED: Magnesium Oxide 400 MG TAB PO SCH (09:00)
[2019-09-08] MEDS ORDERED: Tamsulosin HCl 0.4 MG CAP PO SCH ×2 (09:00)
[2019-09-08] MEDS ORDERED: Calcitriol 0.25 MCG CAP PO SCH (09:00)
--- NOTE | 2019-09-08 13:49 | DIS ---
DATE OF ADMISSION: 09/07/2019 DATE OF DISCHARGE: 09/07/2019 PRIMARY CARE PHYSICIAN: Jacques Whyte MD REASON FOR ADMISSION: For observation of nausea and vomiting. DISCHARGE DIAGNOSES: 1. Nausea and vomiting, resolved, likely secondary to Codeine. 2. Indeterminate troponin, no evidence of acute myocardial infarction. 3. Chronic low back pain, surgery put off due to the COVID outbreak. 4. Aortic stenosis. 5. Chronic anemia. 6. End-stage renal disease, on peritoneal dialysis. 7. Gout. 8. Benign prostatic hyperplasia. 9. Hyperlipidemia. 10. Secondary hyperparathyroidism. 11. Myelodysplastic syndrome. 12. Dehydration with hypotension, resolved. PROCEDURES: Acute abdominal series showing nonobstructed bowel gas pattern. CONSULTATIONS: 1. Nephrology, Dr. Hinson. 2. GI, Dr. Bojorquez. 3. Cardiology, Dr. Harris. SUMMARY OF HOSPITAL COURSE: This is a 69-year-old white male with a known history of end-stage renal disease, on peritoneal dialysis, also with chronic pain from low back pain. He was supposed to have surgery today for his back; however, all elective surgeries have been canceled due to the COVID outbreak. The patient had recently been started on Tylenol No. 4 along with muscle relaxant. He only took one of the muscle relaxants due to it making him feel groggy, but continued to take Tylenol No. 4. The patient has reported increased nausea over the last month. He has lost approximately 20 pounds over the last month, getting progressively weak and fatigued. Reports he is nauseated, worse in the morning, and then usually would vomit 30 minutes after eating or drinking anything, though he is able to hold dinner down typically. The patient does report that he takes Tylenol No. 4 usually when he tries to go to bed at night. The patient thinks he might have had nausea before starting the Tylenol No. 4, but he is not certain. The patient was found to have low blood pressure in the emergency room, he was given IV fluids and was admitted to the hospital. He also had an indeterminate troponin, so Cardiology was consulted. The patient's Tylenol with Codeine was held during his hospitalization. He had no further nausea or vomiting in the hospital. He was able to eat lunch today without any nausea or vomiting afterwards and is holding it down well. Dr. Bojorquez with Gastroenterology recommended stopping or decreasing doses of opiates as it is the likely cause for his nausea. Dr. Harris evaluated the patient and determined he was not having an acute coronary issue and that he was safe for discharge from a cardiac standpoint. Dr. Hinson did evaluate the patient and determined he needed some fluids, but after that will need to continue peritoneal dialysis. The patient was doing well with blood pressures up to 155/70. At the time of discharge, he was having no nausea or vomiting and held the lunch down well. He has had negative orthostatic blood pressures when tested this morning and so he is being discharged home. DISCHARGE MANAGEMENT: Discharged home. FOLLOWUP: Follow up with Dr. Whyte in [address] Harris and Dr. Hinson as indicated. ACTIVITY: As tolerated. DIET: Renal diet. MEDICATIONS: 1. Stop all Tylenol No.4 and tizanidine muscle relaxant. 2. Aspirin 81 mg daily, 30 tablets dispensed. 3. Acetaminophen as needed for pain. 4. Calcitriol 0.25 mcg p.o. daily. 5. Docusate sodium 100 mg at night. 6. Vitamin D2 50,000 units p.o. on Wednesdays. 7. Probiotic one capsule daily. 8. Loratadine 10 mg daily as needed. 9. Magnesium oxide 400 mg daily. 10. MiraLAX 17 g p.o. daily as needed for constipation. 11. Rosuvastatin 10 mg daily. 12. Renvela 800 mg with meals and snacks. 13. Sodium bicarbonate 650 mg p.o. as needed for GERD. 14. Flomax 0.4 mg daily. 15. Tramadol 150 mg 3 times a day as needed for pain. 16. Mircera 100 mcg q.28 days. 17. Zofran 4 mg sublingual as needed for nausea and vomiting. The patient has all the other medications still at home including the tramadol and the Zofran. Job ID: [id number]
== END 2019-09-07 17:50 | disposition home or self-care (01) ==
LOC: ERS 21:32 → 2SW 09-07 00:32
PROVIDERS: ADMIT Internal Medicine; ATTEND Internal Medicine
DX: R11.2 Nausea with vomiting, unspecified (principal); T86.12 Kidney transplant failure; I12.0 Hypertensive chronic kidney disease with stage 5 chronic kidney disease or end stage renal disease; N18.6 End stage renal disease; D63.1 Anemia in chronic kidney disease; N25.81 Secondary hyperparathyroidism of renal origin; D46.9 Myelodysplastic syndrome, unspecified; G89.29 Other chronic pain; M54.5 Low back pain; I35.0 Nonrheumatic aortic (valve) stenosis; M10.9 Gout, unspecified; N40.0 Benign prostatic hyperplasia without lower urinary tract symptoms; E78.5 Hyperlipidemia, unspecified; E86.0 Dehydration; K29.60 Other gastritis without bleeding; Z79.82 Long term (current) use of aspirin; Z79.899 Other long term (current) drug therapy; Z87.891 Personal history of nicotine dependence; Z88.1 Allergy status to other antibiotic agents; Z91.041 Radiographic dye allergy status; Z99.2 Dependence on renal dialysis; E03.9 Hypothyroidism, unspecified
CPT/HCPCS: 74022; 80053 ×2; 82533; 82550; 82553; 82962; 83605; 83690; 83735; 84484 ×3; 85025 ×2; 93005; 94760; 96365; 96372; 97139; 99285; G0378 ×2; Q5105; 36415; 36416; J2550

== ENCOUNTER 2019-10-24 06:16 | Outpatient (CLI) | payer MEDICARE, OTHER ==
[2019-10-24 17:56] LABS: Hemoglobin 9.9 g/dL (14.0-18.0); Mean Corpuscular HGB CONC 31.1 g/dL (32.0-36.0); Mean Corpuscular Hemoglobin 33.4 pg (27.0-31.0); Platelet Count 156 thou/uL (130-400); Red Blood Cell (RBC) Count 2.96 mill/uL (4.70-6.10); White Blood Cell (WBC) Count 5.4 thou/uL (4.8-10.8)
[2019-10-24 18:17] LABS: Anion Gap 20 mmol/L (10-20); BUN (Urea Nitrogen) 94 mg/dL (8.4-25.7); Calc. Creatinine Clearance 0 mL/min (70-130); Calcium 8.8 mg/dL (7.8-10.44); Carbon Dioxide 26 mmol/L (23-31); Chloride 96 mmol/L (98-107); Estimated GFR-MDRD 4; Glucose 96 mg/dL (83-110); Potassium 4.3 mmol/L (3.5-5.1); Sodium 138 mmol/L (136-145)
[2019-10-25 11:35] LABS: SARS-CoV-2 MS2 Positive; SARS-CoV-2 N Gene Negative; SARS-CoV-2 S Gene Negative; SARS-CoV-2 orf1ab Negative
--- NOTE | 2019-10-25 20:16 | EKG ---
Test Reason : Blood Pressure : / mmHG Vent. Rate : 072 BPM Atrial Rate : 072 BPM P-R Int : 426 ms QRS Dur : 174 ms QT Int : 470 ms P-R-T Axes : 033 -59 -16 degrees QTc Int : 514 ms Sinus rhythm with 1st degree A-V block with Possible Premature atrial complexes with Abberant conduct ion Right bundle branch block Left anterior fascicular block Bifascicular block Abnormal ECG When compared with ECG of 06-SEP-2019 21:58, Abberant conduction is now Present T wave inversion no longer evident in Anterior leads QT has shortened Confirmed by JEAN CLAUDE RUELAS, DR. Verduzco ([id number]) on 10/25/2019 8:16:24 PM Referred By: Confirmed By:DR. Luba SILVERIO MD
== END 2019-10-24 06:17 | disposition home or self-care (01) ==
LOC: LABBT 06:16
PROVIDERS: ATTEND Neurological Surgery
DX: Z01.818 Encounter for other preprocedural examination (principal); Z11.59 Encounter for screening for other viral diseases; M54.16 Radiculopathy, lumbar region; M48.061 Spinal stenosis, lumbar region without neurogenic claudication
CPT/HCPCS: 80048; 85027; 93005; U0003; 87635; 93010

== ENCOUNTER 2019-10-26 08:37 | Day surgery (SDC) | payer MEDICARE ==
[2019-10-24 17:10] VITALS: BMI 26.4
--- NOTE | 2019-10-25 12:41 | HP ---
HISTORY OF PRESENT ILLNESS: Mr. Gonsalves is a very pleasant 69-year-old man, here today via referral from Dr. Gambino for lower back pain, neurogenic claudication symptoms L3 radiculopathy. He has some symptoms similar to this in the past and had epidural steroid injections in 2011 that resulted in excellent relief until around a year ago. He has since had 3 additional epidural steroid injections with again excellent relief, however, for very short periods of time, at most maybe 2 to 3 days. His pain greatly worsens when walking, it improves when sitting down. MRI from [place] reveals multilevel severe central canal stenosis from L2 through S1. PHYSICAL EXAMINATION: He is alert and oriented x3. Gait is severely antalgic and slowed with stooped posture. Lower extremity motor exam reveals normal strength in all movements. He has negative straight leg raise. PAST MEDICAL HISTORY: Significant for gout, coronary arterial disease, hypertension, seasonal allergies, hyperlipidemia, and BPH. ALLERGIES: TO CIPRO AND IODINE CONTRAST. MEDICATIONS: 1. Allopurinol. 2. Aspirin. 3. Calcitriol. 4. Ergocalciferol. 5. Hydralazine. 6. Loratadine. 7. Magnesium. 8. Polyethylene glycol. 9. Prednisone. 10. Renvela. 11. Rosuvastatin. 12. Tamsulosin. 13. Tramadol. PAST SURGICAL HISTORY: Kidney transplant and right hip replacement. ASSESSMENT: Lumbar stenosis. PLAN: Dr. Shook met with the patient, reviewed imaging, advocated for an L2 through L5 decompression. He explained to the patient the risks, benefits, and alternatives to the procedure. The patient expressed understanding and elected to move forward with surgery as discussed. I do believe the patient is mentally competent and capable of making medical decisions for himself. We will move forward with surgery as planned. Job ID: [id number]
[2019-10-26] MEDS ORDERED: Thrombin 5000 UNITS/5 ML VIAL ONE (09:06)
[2019-10-26] MEDS ORDERED: Lidocaine 1% w/Epinephrine 1:100K 20 ML VIAL ONE (09:06)
[2019-10-26] MEDS ORDERED: Bupivacaine PF 0.5% 30 ML VIAL ONE (09:06)
[2019-10-26] MEDS ORDERED: Fentanyl 100 MCG/2 ML VIAL ONE ×2 (09:50→13:13)
[2019-10-26] MEDS ORDERED: Midazolam HCl 2 mg/2 ml Vial ONE (09:51)
[2019-10-26] MEDS ORDERED: Dexamethasone 20 MG/5 ML VIAL ONE (11:09)
[2019-10-26] MEDS ORDERED: Lidocaine 1% PF 5 ML VIAL ONE (11:09)
[2019-10-26] MEDS ORDERED: PHENYLEPHRINE-NS 100 MCG/ML 10 ML SYRINGE ONE (11:09)
[2019-10-26] MEDS ORDERED: PROPOFOL 200 MG/20 ML VIAL ONE (11:09)
[2019-10-26] MEDS ORDERED: Rocuronium Bromide 10 MG/ML (10ML VIAL) ONE (11:09)
[2019-10-26] MEDS ORDERED: EPHEDRINE 25 MG/5 ML SYRINGE ONE (11:09)
[2019-10-26] MEDS ORDERED: Glycopyrrolate 0.2 MG/ML 5 ML SYRINGE ONE (11:09)
[2019-10-26] MEDS ORDERED: Ondansetron ORAL SOLN. 4 MG/5 ML UDCUP ONE (11:09)
[2019-10-26] MEDS ORDERED: Meperidine HCl/PF 25 MG/ML VIAL SLOW IVP PRN (13:03)
[2019-10-26] MEDS ORDERED: Ondansetron HCl/PF 4 MG/2 ML Vial IVP PRN (13:03)
[2019-10-26] MEDS ORDERED: Promethazine HCl 25 MG/ML VIAL IM PRN (13:03)
[2019-10-26] MEDS ORDERED: HYDROmorphone 2 MG/ML VIAL SLOW IVP PRN (13:03)
[2019-10-26] MEDS ORDERED: Promethazine HCl 25 MG/ML VIAL SLOW IVP PRN (13:03)
--- NOTE | 2019-10-27 14:17 | OP ---
DATE OF PROCEDURE: 10/26/2019 COLLECTIONS REPRESENTATIVE: Will Srinivasan PA-C. INDICATION: Pain. DIAGNOSIS: Lumbar stenosis with neurogenic claudication. PROCEDURE PERFORMED: L2 through L5 lumbar decompression. ANESTHESIA: General. DESCRIPTION OF PROCEDURE: The patient was brought into the operating room and placed under general anesthesia. He was flipped from the supine to prone position on operating room table. A linear incision was planned spanning L2 through the top of S1. After prepping and draping and after an appropriate preoperative pause, the incision was created. The underlying soft tissues were swept away from midline and self-retaining retractors were placed. After confirming the appropriate levels with C-arm fluoroscopy, the spinous processes were removed of L3, L4, L5 in the inferior aspect of L2. High-speed cutting drill bit as well as 2, 3, and 4 mm Kerrison's were then used to complete the laminectomy, and the laminectomy was extended laterally to encompass the medial aspects of the facet joints. At the completion of the procedure, the L2-L3, L3-L4, L4-L5, and L5-S1 segments were decompressed. The wound was then irrigated. Hemostasis was maintained throughout. The wound was then closed in anatomic layers and a pressure dressing was applied. There were no known procedural complications. Job ID: [id number]
== END 2019-10-26 16:48 | disposition home or self-care (01) ==
LOC: SDC 08:37
PROVIDERS: ATTEND Neurological Surgery
PROC: 01NB0ZZ Release Lumbar Nerve, Open Approach (ICD-10-PCS; principal; 2019-10-26)
DX: M48.062 Spinal stenosis, lumbar region with neurogenic claudication (principal); I10 Essential (primary) hypertension; I25.10 Atherosclerotic heart disease of native coronary artery without angina pectoris; E78.5 Hyperlipidemia, unspecified; Z79.82 Long term (current) use of aspirin; Z79.899 Other long term (current) drug therapy; Z87.891 Personal history of nicotine dependence; Z88.1 Allergy status to other antibiotic agents; Z91.041 Radiographic dye allergy status
CPT/HCPCS: 76000; J0690; J1100; J2001; J2250; J2704; J3010; Q0162; S0020

== ENCOUNTER 2019-11-02 16:24 | Inpatient (IN) | payer MEDICARE ==
[2019-11-02 17:23] LABS: #Eosinphils 0.4 thou/uL (0.0-0.7); #Lymphocytes 0.9 thou/uL (1.20-3.40); #Monocytes 0.4 thou/uL (0.11-0.59); %Basophils 0.2 % (0.0-1.0); %Eosinophils 7.5 % (0.0-10.0); %Lymphocytes 15.7 % (21.0-51.0); %Monocytes 7.6 % (0.0-10.0); %Neutrophils 68.9 % (42.0-75.0); Hemoglobin 9.5 g/dL (14.0-18.0); Mean Corpuscular HGB CONC 31.3 g/dL (32.0-36.0); Mean Corpuscular Hemoglobin 32.3 pg (27.0-31.0); Platelet Count 182 thou/uL (130-400); RBC Distribution Width 14.1 % (11.5-14.5); Red Blood Cell (RBC) Count 2.93 mill/uL (4.70-6.10); White Blood Cell (WBC) Count 5.8 thou/uL (4.8-10.8)
[2019-11-02 17:51] LABS: Bilirubin, Total 0.5 mg/dL (0.2-1.2); Chloride 93 mmol/L (98-107); Sodium 136 mmol/L (136-145)
[2019-11-02 17:58] LABS: ALT (SGPT) Less than 7 U/L (8-55); AST (SGOT) 14 U/L (5-34); Alkaline Phosphatase 55 U/L (40-110); Anion Gap 21 mmol/L (10-20); BUN (Urea Nitrogen) 93 mg/dL (8.4-25.7); Calc. Creatinine Clearance 0 mL/min (70-130); Carbon Dioxide 26 mmol/L (23-31); Estimated GFR-MDRD 4; Globulin 2.4 g/dL (2.4-3.5); Glucose 102 mg/dL (83-110); Lipase 48 U/L (8-78); Protein, Total 5.4 g/dL (5.8-8.1)
--- NOTE | 2019-11-02 18:59 | CT ---
Exam: Abdomen CT without contrast Pelvic CT without contrast HISTORY: Nausea and vomiting. COMPARISON: None FINDINGS: Abdomen CT: Lung bases:Clear Heart size: Upper normal heart size. There are coronary artery calcifications Aorta: Elongation of the aorta. No aneurysm. No periaortic fat stranding Solid organs: Limited evaluation by the lack of IV contrast. Grossly no solid organ abnormality Lymph nodes: No gastrohepatic, retrocrural or periportal lymphadenopathy Gallbladder: No CT evidence of cholelithiasis or cholecystitis Mesentery: No mass, lymphadenopathy, or free air. There is a small amount of fluid in the pelvis, lik sarah secondary to peritoneal dialysis catheter. Kidneys: [place] kidneys are diminutive. 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 Alimentary canal: Limited evaluation by the lack of oral contrast. No evidence of a bowel obstruction . Ileocecal junction is normal. Appendix is not appreciated. Scattered fecal material in a nondistended, nondilated colon. Abdominal wall: There are pockets of fluid in the subcutaneous fat along the right hemiabdomen. Atten uation coefficient is 5 Hounsfield units suggesting nonspecific simple fluid collections. CT PELVIS: No mass, lymphadenopathy or free air. Free fluid in the pelvis is presumed to be due to peritoneal di alysis. Urinary bladder: Limited evaluation due to inadequate distention. Osseous structures: There are no lytic or blastic lesions in the osseous structures. Previous laminec jacques at L3-L4, L4-L5. IMPRESSION: 1. No acute abnormality in the abdomen or pelvis. 2. Diminutive [place] kidneys. Transplanted kidney in the right hemipelvis with probable changes due t o failure of a transplanted kidney. Correlate clinically. 3. Small amounts of free fluid in the abdomen and pelvis likely due to peritoneal dialysis. 4. Nonspecific fluid collections in the right anterolateral abdominal wall. Transcribed Date/Time: 11/02/2019 7:10 PM
[2019-11-02 19:12] LABS: CKMB 5.2 ng/mL (0-6.6)
[2019-11-02 21:02] LABS: Troponin I 0.146 ng/mL (< 0.028)
[2019-11-02] MEDS ORDERED: Ondansetron PF 4 MG/2 ML Vial IVP PRN (21:16)
[2019-11-02] MEDS: traMADol HCl 50 MG TAB PO PRN (23:06)
[2019-11-03 04:27] LABS: #Eosinphils 0.7 thou/uL (0.0-0.7); #Lymphocytes 1.1 thou/uL (1.20-3.40); #Monocytes 0.4 thou/uL (0.11-0.59); #Neutrophils 2.5 thou/uL (1.40-6.50); %Basophils 0.3 % (0.0-1.0); %Eosinophils 14.7 % (0.0-10.0); %Lymphocytes 23.1 % (21.0-51.0); %Monocytes 9.1 % (0.0-10.0); %Neutrophils 52.8 % (42.0-75.0); Hemoglobin 9.3 g/dL (14.0-18.0); Mean Corpuscular HGB CONC 31.4 g/dL (32.0-36.0); Mean Corpuscular Hemoglobin 32.4 pg (27.0-31.0); Mean Platelet Volume 8.1 fL (7.4-10.4); Platelet Count 164 thou/uL (130-400); Red Blood Cell (RBC) Count 2.86 mill/uL (4.70-6.10); White Blood Cell (WBC) Count 4.8 thou/uL (4.8-10.8)
[2019-11-03 04:49] LABS: Anion Gap 20 mmol/L (10-20); BUN (Urea Nitrogen) 90 mg/dL (8.4-25.7); Calc. Creatinine Clearance 7 mL/min (70-130); Calcium 8.3 mg/dL (7.8-10.44); Carbon Dioxide 27 mmol/L (23-31); Chloride 93 mmol/L (98-107); Estimated GFR-MDRD 4; Glucose 94 mg/dL (83-110); Magnesium 2.6 mg/dL (1.6-2.6); Potassium 3.7 mmol/L (3.5-5.1); Sodium 136 mmol/L (136-145)
--- NOTE | 2019-11-03 06:11 | HP ---
REASON FOR ADMISSION: Nausea and vomiting. HISTORY OF PRESENT ILLNESS: This is a 69-year-old male patient presenting to the emergency room for persistent nausea and vomiting. History going back to approximately 2 months before his presentation, the patient has been having nausea and vomiting, but denies any abdominal pain. He is known to have end-stage renal disease, on peritoneal dialysis. He says that before the nausea and vomiting, he had a positive guaiac and underwent an EGD that showed a healing gastritis. He was started on Prilosec, but currently not on Prilosec anymore. His hemoglobin initially was low, which prompted the guaiac testing, but for the past 2 months, he has been having nausea and vomiting and today he is unable to keep anything down. He denies blood in the stool. Denies melena. He does have decreased appetite and did lose 20 pounds over the past couple of months. He was admitted to our hospital in August of this year with similar presentation. During his stay, he was found to have low blood pressure. He was given IV fluids. His troponin was indeterminate. Cardiology was consulted. His nausea and vomiting resolved. Dr. Bojorquez of Gastroenterology recommended decreasing the dose of opiates thinking that this might be the cause of his nausea and vomiting. Cardiology did not think that he had an acute coronary syndrome. He clinically improved and was discharged home. He recently had back surgery approximately a week ago and has been doing well other than he has some difficulty walking. He is taking tramadol for his back pain and that seems to be controlling his pain. Tonight, when I saw the patient, he appeared to be very comfortable. He did report the above symptoms, but did not report any chest pain or shortness of breath or palpitations. PAST MEDICAL HISTORY: 1. Coronary artery disease, 30% stenosis to his LAD. 2. Aortic stenosis. 3. High blood pressure. 4. High cholesterol. 5. Anemia. 6. Gout. 7. Myelodysplastic syndrome. 8. End-stage renal disease, on peritoneal dialysis. 9. Status post kidney transplant in 2002, currently not functioning. 10. Status post right hip surgery. 11. Status post peritoneal dialysis catheter placement in 2018. ALLERGIES: TO CIPRO AND IODINE. SOCIAL HISTORY: Former smoker, quit 10 years ago. FAMILY HISTORY: Reviewed, found to be noncontributory. REVIEW OF SYSTEMS: All systems reviewed except the above mentioned nausea, vomiting, found to be negative. PHYSICAL EXAMINATION: GENERAL: Awake, alert, oriented, does not appear in distress. VITAL SIGNS: His blood pressure is 144/70, heart rate of 70, saturating 98% on room air. HEENT: Head is nontraumatic, normocephalic. Pupils equal, reactive. Extraocular movements are intact. Nonicteric sclerae. Well injected conjunctivae. Oral mucosa normal. Nasal mucosa normal. NECK: Supple. No adenopathy. No murmur. Thyroid is not palpable. Trachea is midline. No supraclavicular adenopathy. CARDIAC: S1 and S2, regular. Loud systolic murmur heard. LUNGS: Clear to auscultation bilaterally. No wheezes, no rhonchi, no crackles. ABDOMEN: Bowel sounds are positive. Nontender abdomen. No hepatosplenomegaly. EXTREMITIES: He does have right lower extremity edema, which is not new as per him, it is chronic. No left lower extremity edema. NEUROLOGICAL: Cranial nerves 2 through 12 within normal limits. Normal motor function. Normal sensory function. Normal reflexes. LABORATORY DATA: Blood work shows sodium of 136, potassium 4, bicarb 26, BUN 93, creatinine of 12.62. Troponin 0.14. In August, it was 0.191 and initially 0.154. WBC 4.5, hemoglobin 9.8, and platelets of 158. CT of the abdomen shows no acute abnormality. Diminutive [place] kidneys, transplanted kidney in the right hemipelvis with probable changes due to failure of the transplanted kidney. Small amount of free fluid in the abdomen and pelvis, likely due to peritoneal dialysis. Nonspecific fluid collection in the right anterolateral abdominal wall. ASSESSMENT AND PLAN: This is a 69-year-old male patient who is presenting with persistence of his nausea and vomiting. He has indeterminate troponin. He had a similar admission back in August. His indeterminate troponin was deemed to be due to his kidney insufficiency and his nausea and vomiting was deemed to be due to his opiate usage, he had an EGD this year that showed some abnormality that is healing as per him. I presume it was gastritis. He was on Prilosec, but not on Prilosec anymore. The patient will be admitted to telemetry for further management. Cardiac. The patient has an indeterminate troponin, but no chest pain, no shortness of breath. On EKG, he does have bifascicular block and a prolonged QTc. He will be monitored on telemetry. We will continue cycling his cardiac enzymes and I believe that his elevated troponin is due to his kidney insufficiency, but we will continue monitoring. Renal. The patient does perform peritoneal dialysis on a daily basis and he will continue to do so. For his nausea and vomiting, I will start him on IV Protonix and clear liquid diets. I will consult Gastroenterology for further guidance. Deep venous thrombosis prophylaxis, will be on sequential compression devices. I am awaiting his med rec to be done. Basically, I will continue his current medications including the blood pressure medication and Renvela and we will provide him with pain control. The patient is not taking any NSAIDs. I have discussed with him his code status and he wishes to be a full code. Job ID: [id number]
[2019-11-03] MEDS ORDERED: Sevelamer Carbonate 800 MG TAB PO SCH (06:30)
[2019-11-03] MEDS: Calcitriol 0.25 MCG CAP PO SCH (09:00)
[2019-11-03] MEDS ORDERED: Non-Formulary Item 1 EACH (Lactobacillus Acidophilus [Probiotic] 1 CAPSULE) PO SCH (09:00)
[2019-11-03] MEDS: Rosuvastatin 5 MG TAB PO SCH (09:00)
[2019-11-03] MEDS: Allopurinol 300 MG TAB PO SCH (09:00)
[2019-11-03] MEDS ORDERED: Ergocalciferol 1.25 MG(50,000 UNITS) CAP PO SCH ×2 (09:00)
[2019-11-03] MEDS: Lactinex Tablet PO SCH (09:00)
[2019-11-03] MEDS: Pantoprazole 40 MG VIAL IVP SCH ×2 (09:01→20:58)
[2019-11-03] MEDS ORDERED: EPOETIN ALFA-EPBX (ESRD) 10,000 UNIT/ML VIAL SC SCH (10:00)
--- NOTE | 2019-11-03 11:29 | PRG ---
DATE OF SERVICE: 11/03/2019 SUBJECTIVE: Mr. Gonsalves is a 69-year-old white male with ESRD-currently on peritoneal dialysis-nocturnal and admitted for persistent nausea and vomiting. The patient has been having nausea and vomiting for the last several weeks. This was said to be associated with weight loss. He describes that at times by just drinking water, he will feel nauseated and vomit. So far he is tolerating his current peritoneal dialysis. He did undergo peritoneal dialysis yesterday using a 2 L fill volume. No complaints of chest pain or shortness of breath. OBJECTIVE: VITAL SIGNS: Blood pressure 137/67, heart rate 67, respiratory rate 17, temperature 98.8, and pulse ox 94%. GENERAL: Awake, alert, comfortable, not in overt distress. SKIN: Adequate turgor. HEENT: He has slightly pale conjunctivae. Anicteric sclerae. NECK: No neck mass. No carotid bruits. No JVD. CHEST: No deformities. LUNGS: Clear breath sounds. No wheezing. No crackles. HEART: Normal sinus rhythm. No murmur, no gallops, no rubs. ABDOMEN: Globular, soft, nontender. No masses. EXTREMITIES: No edema. No deformities. MEDICATIONS: Medications of November 03, 2019, were reviewed. LABORATORY DATA: Laboratories of November 03, 2019; white count is 4.8, hemoglobin is 9.3. Sodium 136, potassium 3.7, chloride 93, carbon dioxide 27, BUN 90, creatinine 12.14, glucose 94, calcium 8.3, magnesium 2.6. Troponin I 0.146. IMAGING STUDIES: CT scan of the abdomen and pelvis, no acute intra-abdominal abnormality. ASSESSMENT AND PLAN: 1. End-stage renal disease, stable. We will continue current CCPD regimen. We will do a 10-hour peritoneal dialysis treatment using a 1.5% PD solution. We will minimize ultrafiltration due to the decreased p.o. intake with this patient as well as weight loss. 2. Anemia. Restart Epogen at 10,000 units subcu every week. 3. Nausea and vomiting with associated weight loss. Consider a GI re-evaluation for this patient. 4. Overall agree with current management. Job ID: [id number]
--- NOTE | 2019-11-03 13:36 | CON ---
DATE OF CONSULTATION: HISTORY OF PRESENT ILLNESS: The patient is a 69-year-old gentleman who presents with recurrent nausea, vomiting, and weakness. The patient has a previous history of coronary artery disease and aortic stenosis. The patient 5 years ago underwent a cardiac evaluation including cardiac catheterization,and was found to have normal left ventricular systolic function with mild coronary artery disease with a 20% to 30 % lesion in the LAD. The patient also has a history of bradycardia with prolonged first-degree AV block. The patient was admitted in August of this year with nausea and vomiting. He underwent a GI evaluation. He was in his usual state of health when he recently underwent back surgery. The patient states that he noted his nausea and vomiting had become worse and was admitted for further evaluation. The patient denies having any chest discomfort. The patient denies having any PND or orthopnea. The patient has no history of lightheadedness or syncope. PAST MEDICAL HISTORY: 1. Coronary artery disease. 2. Aortic stenosis. 3. Hypertension. 4. Hyperlipidemia. 5. Myelodysplastic syndrome. 6. Gout. 7. End-stage renal disease. PAST SURGICAL HISTORY: 1. Hip surgery. 2. Shoulder surgery. 3. Peritoneal dialysis catheter placement. ALLERGIES: CIPROFLOXACIN AND IODINE. SOCIAL HISTORY: Former smoker. FAMILY HISTORY: Positive family history of coronary artery disease. Father had a CVA. REVIEW OF SYSTEMS: Ten-point system otherwise unremarkable except for chronic back discomfort. PHYSICAL EXAMINATION: GENERAL: Well-developed gentleman, in no acute distress. VITAL SIGNS: Blood pressure 137/67. NECK: No jugular venous distention. LUNGS: Clear to auscultation. HEART: Regular rate and rhythm. Normal S1 and S2 with a 3/6 systolic murmur. ABDOMEN: Nondistended. EXTREMITIES: Trace edema. VASCULAR: Radial pulse was 2+. LABORATORY DATA: Sodium 136, potassium 3.7, chloride 93, bicarbonate 27, BUN 90 , and creatinine was 12. Troponin was 0.146. White blood cell count 4.8, hemoglobin 9.3, hematocrit 29.5, and platelets 164. EKG normal sinus rhythm with a right bundle-branch block and a prolonged first-degree AV block. Telemetry monitoring second-degree AV block IMPRESSION: 1. Nausea and vomiting. 2. Second-degree heart block. 3. History of coronary artery disease. 4. Aortic stenosis. 5. End-stage renal disease. 6. Sleep apnea. 7. Myelodysplastic syndrome. 8. Status post back surgery. PLAN: This gentleman presented with recurrent nausea and vomiting. From a cardiac standpoint, he has intermittent heart block. We will ask EP to evaluate whether he feels a pacemaker might be indicated. I will check the patient's echocardiogram to re-evaluate the extent of aortic stenosis. We will follow this patient with you through his hospitalization. Job ID: [id number] MTDD
--- NOTE | 2019-11-03 13:45 | PDOC.HOSPP ---
- Subjective Encounter Date: 11/03/19 Encounter Time: 12:20 Subjective: pt is getting bedside echo. Dr. Bhandari at bedside, discussing plan of care with him. pt has no acute events or complaints. - Objective Vital Signs & Weight: Vital Signs (12 hours) Temp Pulse Resp BP BP Pulse Ox 11/03/19 11:28 98.5 F 96 14 134/63 96 11/03/19 07:39 98.8 F 67 17 137/67 95 11/03/19 04:19 97.8 F 57 L 18 137/72 95 Weight Weight 193 lb 1.6 oz I&O: 11/02/19 11/03/19 11/04/19 06:59 06:59 06:59 Intake Total 320 Output Total 50 Balance 270 Result Diagrams: 11/03/19 04:09 11/03/19 04:09 Hospitalist ROS - Medication Medications: Active Medications Generic Name Dose Route Start Last Admin Trade Name Freq PRN Reason Stop Dose Admin Acidophilus 1 tab 11/03/19 09:00 11/03/19 09:00 Floranex PO 1 tab DAILY NICOLE Administration Allopurinol 150 mg 11/03/19 09:00 11/03/19 09:00 Zyloprim PO 150 mg DAILY NICOLE Administration Calcitriol 0.25 mcg 11/03/19 09:00 11/03/19 09:00 Rocaltrol PO 0.25 mcg DAILY NICOLE Administration Epoetin Tato-epbx 10,000 unit 11/03/19 10:00 11/03/19 11:33 Retacrit SC 10,000 unit Q7D NICOLE Administration Ondansetron HCl 4 mg 11/02/19 21:16 11/03/19 09:01 Zofran IVP 4 mg Q6H PRN Administration Nausea/Vomiting Pantoprazole Sodium 40 mg 11/03/19 09:00 11/03/19 09:01 Protonix IVP 40 mg Q12HR NICOLE Administration Rosuvastatin Calcium 10 mg 11/03/19 09:00 11/03/19 09:00 Crestor PO 10 mg DAILY NICOLE Administration Sodium Chloride 10 ml 11/03/19 09:00 11/03/19 09:04 Flush - Normal Saline IVF 10 ml Q12HR NICOLE Administration Tramadol HCl 50 mg 11/02/19 21:45 11/02/19 23:06 Ultram PO 50 mg Q6H PRN Administration Pain - Exam General Appearance: NAD, awake alert Eye: PERRL ENT: normocephalic atraumatic Neck: supple Heart: RRR Respiratory: CTAB, normal chest expansion Gastrointestinal: soft, normal bowel sounds Neurological: cranial nerve grossly intact, no focal deficits Hosp A/P - Plan nausea/vomiting --improving --poss d/t CKD, ESRD on PD and GI etiol.? --no diarrhea but does have wt loss --GI c/s Hx of renal transplant in 2002 --failed and now on Peritonal dialysis macrocytic anemia of Kidney dz wt loss - will get iron study panel -on epo -given wt loss and ongoing intractable N/v, will c/s GI AVblock II, indetereminate --echo showed nl EF --severe ao stenosis --Dr. Bhandari following with us.
--- NOTE | 2019-11-03 14:26 | CON ---
DATE OF CONSULTATION: 11/03/2019 REQUESTING PHYSICIAN: Dr. Cat. REASON FOR CONSULTATION: Nausea and vomiting. HISTORY OF PRESENT ILLNESS: Dwain Gonsalves Junior is a 69-year-old man, seen in the outpatient setting by my colleague, Dr. Marlon Valdez. He had a colonoscopy in 2017, which was normal. He had a recent EGD in July 2019 performed for evaluation of anemia. This demonstrated only a single small antral erosion, and was otherwise a normal exam. He completed 2 weeks of PPI therapy at that time. I met him during brief hospitalization on 09/07/2019 when he had presented with nausea and vomiting. This is in the context of having recently started on Tylenol No. 4 as well as tizanidine. Laboratory and imaging evaluation at that time were essentially negative. We did not repeat upper endoscopy. He had some negative cardiac workup at that time, notably he does have chronic aortic valve stenosis. He was able to be discharged that same day. He reports he had generally done a bit better over the past couple of months since then, though his appetite has still not been great and he has lost a bit of weight. One week ago, he finally underwent back surgery. He has been alternating Tylenol 4 and tramadol since then. With this, he gets a lot of dry mouth and his bowel movements have also slowed down. He has only had one bowel movement over the past week. For the past couple of days, he has been more nauseated and has had several episodes of emesis. He feels Zofran helps a bit. Upon presentation, he is found to be hemodynamically stable. He has not had any vomiting today, tolerated some clear liquids last night. He is not really having any abdominal pain. He does have continued nausea and dry mouth. Noncontrast CT of the abdomen and pelvis shows no acute processes. REVIEW OF SYSTEMS: Full review of systems including constitutional; head, eyes, ears, nose, and throat; GI; ; cardiovascular; respiratory; musculoskeletal; neurologic systems is negative except as noted in the HPI. PAST MEDICAL HISTORY: 1. End-stage renal disease on peritoneal dialysis. 2. Chronic low back pain. 3. Back surgery 1 week ago. 4. Myelodysplastic syndrome. 5. Aortic valve stenosis. 6. Chronic anemia. 7. Hyperlipidemia. 8. Hypertension. 9. Gout. 10. Renal transplant in 2002. 11. Right shoulder surgery. 12. Right hip surgery. 13. Peritoneal dialysis catheter placement. ALLERGIES: FLUOROQUINOLONES AND IODINE CONTRAST. HOME MEDICATIONS: 1. Tylenol No. 4 one to two tablets q.6 hours p.r.n. 2. Tramadol 50 mg t.i.d. p.r.n. 3. Zofran 4 mg sublingual p.r.n. 4. MiraLAX 17 g daily p.r.n. 5. Crestor. 6. Renvela. 7. Hydralazine. 8. Loratadine. 9. Magnesium oxide. 10. Calcitriol. 11. Docusate 100 mg at bedtime. 12. Lactobacillus probiotic one capsule daily. 13. Tylenol p.r.n. 14. Allopurinol 150 mg daily. 15. Tizanidine 4 mg p.o. b.i.d. SOCIAL HISTORY: He is a former smoker, quit 10 years ago. He quit drinking alcohol a few months ago. FAMILY HISTORY: Noncontributory. PHYSICAL EXAMINATION: VITAL SIGNS: Temperature 98.8, pulse 67, blood pressure 137/67, 95% oxygen saturation on room air. GENERAL: A 69-year-old man, lying in bed comfortably, in no distress. MENTAL: Alert and fully oriented. Pleasant, conversational. SKIN: No jaundice. No rashes were palpable. EYES: No scleral icterus. Extraocular movements are intact. ENT: Mucous membranes are moist. No oral lesions. LYMPH: No submandibular or supraclavicular lymphadenopathy. THYROID: Nontender to palpation. HEART: Regular rate and rhythm. Systolic murmur. LUNGS: Clear to auscultation bilaterally. ABDOMEN: Nondistended. Bowel sounds present. Soft, nontender to palpation throughout. EXTREMITIES: No peripheral edema. VESSELS: Radial pulses 2+ bilaterally. NEURO: Cranial nerves 2 through 12 intact bilaterally. No focal deficits. LABORATORY STUDIES: Hemoglobin 9.3, WBC 4.8, platelets 164. Sodium 136, potassium 3.7, BUN 90, creatinine 12.14, calcium 8.3, magnesium 2.6, glucose 94. Troponin 0.146. Total bilirubin 0.5, alkaline phosphatase 55, AST 14, ALT less than 7, lipase 48. IMAGING STUDIES: CT of the abdomen and pelvis on presentation demonstrated no acute processes. He has a transplanted right kidney, small [place] kidneys, peritoneal dialysis catheter in place. Gallbladder appears normal. ASSESSMENT AND PLAN: 1. Nausea and vomiting, recurrent. 2. Constipation. 3. Mild gastritis, demonstrated on July 2019 EGD. The patient has continued nausea and occasional vomiting, still in the context of opiate use, alternating Tylenol No. 4 and tramadol, in the context of recent back surgery. My impression really has not changed from prior evaluation, that this is likely primarily medication related, secondary to the opiates. He did have some mild gastritis on July 2019 EGD, so it is possible this is a factor, so I would agree with going ahead and getting him back on a twice daily proton pump inhibitor for now, but otherwise, I would simply advise trying to hold or at least minimize the opiates, particularly the Tylenol with Codeine. Get him back on daily MiraLAX, be more aggressive with bowel regimen as needed for a goal of bowel movement once daily. We are not going to plan on any repeat endoscopy. Advance diet as tolerated, hopefully he can be discharged from the hospital soon, pending some cardiac evaluation that is also ongoing. Thank you for the consultation. Please call with questions or concerns. Job ID: [id number]
[2019-11-03] MEDS ORDERED: Midazolam HCl 2 mg/2 ml Vial ONE (14:59)
[2019-11-03] MEDS ORDERED: Fentanyl 100 MCG/2 ML VIAL ONE (14:59)
--- NOTE | 2019-11-03 15:23 | EKG ---
Test Reason : Blood Pressure : / mmHG Vent. Rate : 072 BPM Atrial Rate : 046 BPM P-R Int : 000 ms QRS Dur : 178 ms QT Int : 526 ms P-R-T Axes : 000 -55 -18 degrees QTc Int : 575 ms Wide QRS rhythm Right bundle branch block Left anterior fascicular block Bifascicular block Abnormal ECG Confirmed by ODESSA PRETTY DO ([id number]), editor trade journal KATELYN ORTIZ ([id number]) on 11/03/2019 3:22:49 PM Referred By: Confirmed By:ODESSA PRETTY DO
[2019-11-03] MEDS ORDERED: Gentamicin 80 MG/2 ML VIAL ONE (16:18)
[2019-11-03] MEDS ORDERED: Communication Order-Pharmacy FS SCH (16:45)
[2019-11-03] MEDS ORDERED: diphenhydrAMINE 50 MG/ML VIAL IVP SCH (20:15)
[2019-11-03] MEDS ORDERED: predniSONE 50 MG TAB PO SCH (20:15)
[2019-11-03] MEDS: ceFAZolin Sodium 1 GM/Dextrose 50 ML BAG IVPB SCH (21:03)
[2019-11-04] MEDS: traMADol HCl 50 MG TAB PO PRN (01:02)
[2019-11-04 05:08] LABS: #Lymphocytes 0.3 thou/uL (1.20-3.40); #Neutrophils 3.3 thou/uL (1.40-6.50); %Basophils 0.4 % (0.0-1.0); %Eosinophils 0.3 % (0.0-10.0); %Lymphocytes 7.6 % (21.0-51.0); %Neutrophils 90.7 % (42.0-75.0); Hemoglobin 9.6 g/dL (14.0-18.0); Mean Corpuscular HGB CONC 30.3 g/dL (32.0-36.0); Mean Corpuscular Hemoglobin 31.5 pg (27.0-31.0); Mean Platelet Volume 8.3 fL (7.4-10.4); Platelet Count 173 thou/uL (130-400); RBC Distribution Width 13.9 % (11.5-14.5); Red Blood Cell (RBC) Count 3.05 mill/uL (4.70-6.10); White Blood Cell (WBC) Count 3.7 thou/uL (4.8-10.8)
--- NOTE | 2019-11-04 05:29 | CON ---
DATE OF CONSULTATION: 11/03/2019 HISTORY OF PRESENT ILLNESS: I am seeing Mr. 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 His problems are; 1. Mobitz type 1 AV block. 2. Trifascicular block as baseline. 3. History of [id number] , mild AI, MR, TR and preserved LVEF on 2D echo and today's echo on November 03, 2019. 4. Recent spinal surgery. 5. History of nonobstructive coronary artery disease, bilateral heart catheterization in the past. 6. End-stage renal disease, on peritoneal dialysis. 7. Prior left upper extremity AV fistula replacement. 8. History of sleep apnea. ALLERGIES: CIPRO, IODINATED CONTRAST MEDIA, AND FLUOROQUINOLONES. MEDICATIONS: At home included allopurinol, calcitriol, rosuvastatin, probiotic, Tylenol, vitamin D2, loratadine, tramadol, docusate, polyethylene glycol, magnesium oxide, sevelamer, Zofran, hydralazine, tizanidine, and Tylenol with codeine. SUBJECTIVE: Mr. Gonsalves is here with nausea and vomiting, has been going back about 2 months prior to admit. He does not have specific abdominal pain. He has end-stage renal disease, on peritoneal dialysis. He had prior EGD recently which showed healing gastritis. He was on Prilosec for a while, but had stopped. He has no history of bloody stool or melena. He has been fatigued and markedly dizzy at times. This is a chronic issue for him. Nausea and vomiting are resolved, but the weakness and dizziness continues. He is recovering well from his back surgery and decreasing his opiate use. He is taking tramadol for back pain only. REVIEW OF SYSTEMS: Rest of the review of systems otherwise unremarkable. Denies PND or orthopnea. No anginal discomfort. Has fatigue and dizzy spells. Rest of 12-point system otherwise unremarkable. PAST MEDICAL HISTORY: As above. He does carry a history of myelodysplastic syndrome, gout, history of aortic stenosis from Dr. Harris, hypertension, hyperlipidemia, mild coronary artery disease. PAST SURGICAL HISTORY: Significant for hip surgery, shoulder surgery, recent neck surgery and dialysis catheter placement after AV fistula placement in the past. SOCIAL HISTORY: The patient is a former smoker. Denies EtOH or drug abuse. FAMILY HISTORY: Significant for coronary artery disease. Father had a stroke. OBJECTIVE DATA: VITAL SIGNS: Blood pressure is 137/67, heart rate 67, respirations 17, temperature 98.8 degrees Fahrenheit. GENERAL: This is an alert and oriented man, in no apparent distress. NECK: Supple. Jugular veins not distended. CHEST: Coarse without crackles. HEART: Sounds are regular rate and rhythm. 3/6 systolic ejection murmur over the aortic area with radiation to the neck noted. PMI is nondisplaced. ABDOMEN: Benign. Bowel sounds positive. EXTREMITIES: Lower extremities without edema, clubbing, or cyanosis. Pulses are adequate. NEUROLOGIC: Nonfocal. MUSCULOSKELETAL: Without joint swelling or deformity. SKIN: Without rash. DATABASE: EKG is reviewed revealing sinus rhythm, rate of 72 beats per minute. Right bundle-branch block is seen. Marked first-degree AV block at 400 milliseconds is noted. LABORATORY DATA: White cell count is 4.8, hemoglobin 9.3, platelet count is 164. Sodium 136, potassium 2.7, BUN is 90, creatinine is 12.14. ASSESSMENT AND PLAN: Mr. Gonsalves is a 69-year-old man with prior history of end-stage renal disease, myelodysplastic syndrome who has type 1 second-degree AV block. He has chronic symptoms of dizziness, lightheadedness, previously thought to be related to blood pressure fluctuations. His current workup reveals chronic, but severe conduction disease, trifascicular block and now is developing episodic Mobitz type 1 type AV blocks, but also at times 2:1 AV block is seen as well on telemetry recording. Additionally he has significant likely severe aortic stenosis, being followed and evaluated by Dr. Harris, who may be considering future aortic valve surgery or TAVR procedure for him. We discussed his issues. I am concerned about his marked conduction disease and his symptoms. Progression to complete AV block is very high likelihood, especially if he would require aortic valve surgery in the future. At this point, I would consider proceeding with a dual-chamber pacemaker implant which will prevent severe symptoms if complete AV block occurs. As I reviewed the echocardiogram, no LV dyssynchrony present. The LVEF is normal. At this point, a dual-chamber device will suffice. He is explained the procedure, risks including, pneumothorax, tamponade, lead dislodgement, device malfunctions also discussed. He is willing to proceed. We will schedule him in very near date. Thank you again for letting me to participate in the care of this patient. Job ID: [id number]
[2019-11-04 05:33] LABS: Anion Gap 22 mmol/L (10-20); BUN (Urea Nitrogen) 86 mg/dL (8.4-25.7); Calc. Creatinine Clearance 7 mL/min (70-130); Calcium 8.6 mg/dL (7.8-10.44); Carbon Dioxide 24 mmol/L (23-31); Chloride 92 mmol/L (98-107); Estimated GFR-MDRD 4; Glucose 147 mg/dL (83-110); Sodium 134 mmol/L (136-145)
[2019-11-04 05:36] LABS: Troponin I 0.178 ng/mL (< 0.028)
[2019-11-04] MEDS: ceFAZolin Sodium 1 GM/Dextrose 50 ML BAG IVPB SCH (06:29)
[2019-11-04] MEDS: Pantoprazole 40 MG VIAL IVP SCH ×2 (06:30→20:21)
[2019-11-04] MEDS: Rosuvastatin 5 MG TAB PO SCH (06:33)
[2019-11-04] MEDS: Lactinex Tablet PO SCH (06:33)
[2019-11-04] MEDS: Allopurinol 300 MG TAB PO SCH (06:33)
[2019-11-04] MEDS: Calcitriol 0.25 MCG CAP PO SCH (06:33)
[2019-11-04] MEDS: Cephalexin 250 MG CAP PO SCH ×3 (06:33→20:19)
[2019-11-04] MEDS: predniSONE 50 MG TAB PO SCH ×2 (06:34→17:20)
--- NOTE | 2019-11-04 07:55 | RAD ---
SINGLE VIEW CHEST: Date: 11/04/2019 COMPARISON: 09/07/2019. FINDINGS: Single view of the chest shows a cardiomediastinal silhouette which is upper limits of normal in size . A right subclavian pacemaker is seen with its leads in the right atrium and ventricle. There is no evidence of consolidation, mass, or pleural effusion. Postsurgical changes are seen in the right shou lder. IMPRESSION: No evidence of acute cardiopulmonary disease. POS: EAA
[2019-11-04] MEDS: Polyethylene Glycol 3350 17 GM Packet PO SCH ×2 (08:22→17:21)
[2019-11-04] MEDS ORDERED: Iopamidol 370 76% 100 ML VIAL ONE (09:23)
--- NOTE | 2019-11-04 09:34 | PRG ---
DATE OF SERVICE: 11/04/2019 SUBJECTIVE: Mr. Gonsalves is a 69-year-old white male with ESRD, currently on peritoneal dialysis. He was admitted due to generalized malaise with nausea and vomiting. He was evaluated by Cardiology. He had a Mobitz type 1 AV block. The patient underwent pacemaker placement yesterday. I am seeing him this morning, he said he is feeling better, I said this is after the said procedure. He voices no new complaints. No chest pain or shortness of breath. OBJECTIVE: VITAL SIGNS: Blood pressure is 139/70, heart rate 64, respiratory rate 20, temperature 97.9, and O2 saturation 95% on room air. GENERAL: Awake, alert, and comfortable, not in distress. SKIN: Adequate turgor. HEENT: Pinkish conjunctivae. Anicteric sclerae. No neck mass. No carotid bruits. No JVD. CHEST: No deformities. LUNGS: Clear breath sounds. HEART: Normal sinus rhythm. Grade 2/6 systolic murmur. No gallops. No rubs. ABDOMEN: Globular, soft, nontender. No masses. Positive for PD catheter. EXTREMITIES: No edema. MEDICATIONS: On November 04, 2019, reviewed. LABORATORY DATA: On November 04, 2019; white count 3.7, hemoglobin 9.6, sodium 134, potassium 4, chloride 92, carbon dioxide 24, BUN 86, creatinine 12.07, and calcium 8.6. ASSESSMENT AND PLAN: 1. End-stage renal disease. Review of his most recent Kt/V suggests he is not adequately dialyzed with the current dialysis regimen. For this reason, I would change his dialysis regimen using a 2.9 L fill volume and doing 5 exchanges overnight. He tolerated the said procedure. 2. Generalized malaise/nausea-clinically improving. 3. Valvular heart disease/cardiac arrhythmia-status post pacemaker placement. Cardiology is following. 4. Anemia-multifactorial, currently on weekly Epogen. Job ID: [id number]
--- NOTE | 2019-11-04 12:18 | RAD ---
Exam: Chest one view HISTORY:Status post cardiac device placement Comparison: 11/04/2019 at 12:43 AM FINDINGS: Pacing device: Right-sided transvenous pacemaker with lead positioned over the right atrium and right ventricle. Cardiac silhouette:Cardiomegaly Aorta: Atherosclerosis Pulmonary vessels: Normal Costophrenic angles: Clear LUNGS: No masses or consolidation. Pneumothorax: None Osseous abnormalities: None IMPRESSION: Right-sided transvenous pacemaker. No pneumothorax.
--- NOTE | 2019-11-04 13:12 | PRG ---
DATE OF SERVICE: 11/04/2019 SUBJECTIVE: Mr. Gonsalves had echocardiogram yesterday, which confirmed severe aortic stenosis. He was found to be in type I AV block. He underwent pacemaker placement yesterday and cardiac catheterization today. This evidently went well. He is currently feeling pretty well. He is not complaining of any nausea or abdominal pain. He has started having some broth and this is going down just fine. OBJECTIVE: VITAL SIGNS: Temperature 97.8, pulse 72, blood pressure 164/81, and 100% oxygen saturation on room air. GENERAL: No acute distress, lying supine in bed post cardiac catheterization. HEART: Regular rate and rhythm. Pacemaker in place to the right chest with ecchymosis in the area. LUNGS: Clear to auscultation bilaterally. ABDOMEN: Bowel sounds present. Soft and nontender to palpation throughout. EXTREMITIES: No peripheral edema. LABORATORY STUDIES: Troponin is 0.178. Sodium 134, potassium 4.0, BUN 86, creatinine 12.07, and glucose 147. WBC 3.7, hemoglobin 9.6, and platelets 173. ASSESSMENT AND PLAN: 1. Nausea and vomiting, improved somewhat today. 2. Mild gastritis, demonstrated in July 2019 esophagogastroduodenoscopy. 3. Heart block, status post pacemaker placement yesterday. 4. Severe aortic stenosis. My impression remains his nausea has been multifactorial secondary to recent back surgery, opioid use, his aortic stenosis and heart block. Continue with twice daily PPI, but otherwise we are not planning on any further GI investigations. From a GI standpoint, okay to advance his diet as tolerated today. Have him on daily MiraLAX. He can follow up with Dr. Valdez in the GI Clinic in the coming weeks if nausea symptoms are persistent. GI will sign off, but please call back anytime with questions or concerns. Job ID: [id number]
[2019-11-04] MEDS ORDERED: Sodium Chloride 0.9% 200 ML IV PRN (13:53)
[2019-11-04] MEDS ORDERED: Acetaminophen/Codeine 30-300mg Tablet PO PRN (13:53)
[2019-11-04 14:27] VITALS: BMI 23.9
--- NOTE | 2019-11-04 15:09 | PDOC.EP ---
- Subjective Date: 11/04/19 Time: 15:08 Interval History: feels good overnight post PPM implant. Hematoma at the PPM site is noted. - Review of Systems Constitutional: denies: chills, fever, malaise, sweats, weakness, other Respiratory: denies: cough, dry, hemoptysis, pleuritic pain, shortness of breath , SOB with excertion, sputum, wheezing, other Cardiology: reports: swelling (Minor swelling at PPM implant site). denies: chest pain, edema, heart racing, light headedness, orthopnea, paroxysmal noc. dyspnea, palpitations, passing out, pleuritic pain, pressure, other - Objective Allergies/Adverse Reactions: Allergies Allergy/AdvReac Type Severity Reaction Status Date / Time ciprofloxacin Allergy Intermediate RASH/ITCHIN Verified 11/03/19 00:31 G Iodinated Contrast Media Allergy Intermediate RASH/ITCHIN Verified 11/03/19 00: 31 [Iodinated Contrast Media - G IV Dye] fluoroquinolones Allergy Uncoded 10/27/19 17:35 Current Medications Acetaminophen/Codeine Phosphate (Tylenol #3) 1 tab PO Q4H PRN PRN Reason: Mild Pain (1-3) Acidophilus (Floranex) 1 tab PO DAILY COUNTS INCLUDE 234 BEDS AT THE [facility] Last Admin: 11/04/19 06:33 Dose: 1 tab Allopurinol (Zyloprim) 150 mg PO DAILY COUNTS INCLUDE 234 BEDS AT THE [facility] Last Admin: 11/04/19 06:33 Dose: 150 mg Calcitriol (Rocaltrol) 0.25 mcg PO DAILY COUNTS INCLUDE 234 BEDS AT THE [facility] Last Admin: 11/04/19 06:33 Dose: 0.25 mcg Cephalexin (Keflex) 250 mg PO TID COUNTS INCLUDE 234 BEDS AT THE [facility] Stop: 11/10/19 21:01 Last Admin: 11/04/19 06:33 Dose: 250 mg Diphenhydramine HCl (Benadryl) 25 mg IVP WILLCALL COUNTS INCLUDE 234 BEDS AT THE [facility] Stop: 11/04/19 23:59 Last Admin: 11/04/19 10:06 Dose: 25 mg Epoetin Tato-epbx (Retacrit) 10,000 unit SC Q7D COUNTS INCLUDE 234 BEDS AT THE [facility] Last Admin: 11/03/19 11:33 Dose: 10,000 unit Ergocalciferol (Drisdol) 1.25 mg PO Q7DAYS COUNTS INCLUDE 234 BEDS AT THE [facility] Sodium Chloride (Normal Saline 0.9%) 200 mls @ 0 mls/hr IV ONE PRN PRN Reason: SBP < 90 Stop: 11/05/19 13:54 Ondansetron HCl (Zofran) 4 mg IVP Q6H PRN PRN Reason: Nausea/Vomiting Last Admin: 11/03/19 09:01 Dose: 4 mg Pantoprazole Sodium (Protonix) 40 mg IVP Q12HR COUNTS INCLUDE 234 BEDS AT THE [facility] Last Admin: 11/04/19 06:30 Dose: 40 mg Polyethylene Glycol (Miralax) 17 gm PO DAILY COUNTS INCLUDE 234 BEDS AT THE [facility] Last Admin: 11/04/19 08:22 Dose: Not Given Prednisone (Prednisone) 50 mg PO 0600,1800 COUNTS INCLUDE 234 BEDS AT THE [facility] Stop: 11/04/19 19:00 Last Admin: 11/04/19 06:34 Dose: 50 mg Rosuvastatin Calcium (Crestor) 10 mg PO 2100 COUNTS INCLUDE 234 BEDS AT THE [facility] Sevelamer Carbonate (Renvela) 800 mg PO ASDIR COUNTS INCLUDE 234 BEDS AT THE [facility] Sodium Chloride (Flush - Normal Saline) 10 ml IVF Q12HR COUNTS INCLUDE 234 BEDS AT THE [facility] Last Admin: 11/04/19 06:34 Dose: 10 ml Sodium Chloride (Flush - Normal Saline) 10 ml IVF PRN PRN PRN Reason: Saline Flush Tramadol HCl (Ultram) 50 mg PO Q6H PRN PRN Reason: Pain Last Admin: 11/04/19 01:02 Dose: 50 mg Vital Signs & Weight: Vital Signs Temp Pulse Resp BP BP Pulse Ox 11/04/19 14:56 181/77 H 11/04/19 12:10 97.8 F 72 18 164/81 H 100 11/04/19 08:29 95 11/04/19 08:14 97.9 F 64 20 139/70 95 Admit Weight 185 lb 8 oz Weight 186 lb 3.2 oz I/O: I/O 11/03/19 11/04/19 11/05/19 06:59 06:59 06:59 Intake Total 320 480 Output Total 50 50 Balance 270 430 - Physical Exam General: negative: alert & oriented x3, appears well, no apparent distress, cachectic, speech clear, affect appropriate, other Neck: supple neck, no JVD/HJR Cardiology: regular rate and rhythm, audible murmur (3/6 SYS ejection@ Aortic area) Lungs: clear to auscultation, no wheezes, no rales Neurology: grossly intact Abdomen: unremarkable, active bowel sounds Skin: right sided device, hematoma (small hematoma) Musculoskeletal: normal range of motion - Labs Result Diagrams: 11/04/19 04:38 11/04/19 04:38 - Diagnostic Chest x-ray Status: report reviewed by me (Adequate Lead position, no Pntx) - EKG Interpretation EKG Method: Telemetry EKG shows: Sinus rhythm (V paced) - Device Device: dual, pacemaker Device Result: [employer] (Adequate function) - Assessment/Plan Assessment/Plan: 1. Mob Type I / occ 2:1 AV block with symptoms. 2. Trifascicular block. 3. 4. ESRD. 5. Preserved LVEF. Adequate PPM function w no Pntx. Moderate sized hematoma. Plan pressure dressing. Continue Abx.x 1 week. Home once ok by Primary team. 2 week wound check. Would sign out. Thank You.
--- NOTE | 2019-11-04 15:20 | PDOC.HOSPP ---
- Subjective Encounter Date: 11/04/19 Encounter Time: 14:50 Subjective: pt returned from cath and pacer palcement, at bedside. discussed the care and possible dc home early next week. - Objective Vital Signs & Weight: Vital Signs (12 hours) Temp Pulse Resp BP BP Pulse Ox 11/04/19 14:56 181/77 H 11/04/19 12:10 97.8 F 72 18 164/81 H 100 11/04/19 08:29 95 11/04/19 08:14 97.9 F 64 20 139/70 95 Weight Admit Weight 185 lb 8 oz Weight 186 lb 3.2 oz I&O: 11/03/19 11/04/19 11/05/19 06:59 06:59 06:59 Intake Total 320 480 Output Total 50 50 Balance 270 430 Result Diagrams: 11/04/19 04:38 11/04/19 04:38 Hospitalist ROS - Medication Medications: Active Medications Generic Name Dose Route Start Last Admin Trade Name Freq PRN Reason Stop Dose Admin Acidophilus 1 tab 11/03/19 09:00 11/04/19 06:33 Floranex PO 1 tab DAILY NICOLE Administration Allopurinol 150 mg 11/03/19 09:00 11/04/19 06:33 Zyloprim PO 150 mg DAILY NICOLE Administration Calcitriol 0.25 mcg 11/03/19 09:00 11/04/19 06:33 Rocaltrol PO 0.25 mcg DAILY NICOLE Administration Cephalexin 250 mg 11/04/19 09:00 11/04/19 06:33 Keflex PO 11/10/19 21:01 250 mg TID NICOLE Administration Diphenhydramine HCl 25 mg 11/03/19 20:15 11/04/19 10:06 Benadryl IVP 11/04/19 23:59 25 mg WILLCALL NICOLE Administration Epoetin Tato-epbx 10,000 unit 11/03/19 10:00 11/03/19 11:33 Retacrit SC 10,000 unit Q7D NICOLE Administration Ondansetron HCl 4 mg 11/02/19 21:16 11/03/19 09:01 Zofran IVP 4 mg Q6H PRN Administration Nausea/Vomiting Pantoprazole Sodium 40 mg 11/03/19 09:00 11/04/19 06:30 Protonix IVP 40 mg Q12HR NICOLE Administration Polyethylene Glycol 17 gm 11/04/19 09:00 11/04/19 08:22 Miralax PO Not Given DAILY NICOLE Prednisone 50 mg 11/04/19 06:00 11/04/19 06:34 Prednisone PO 11/04/19 19:00 50 mg 0600,1800 NICOLE Administration Sodium Chloride 10 ml 11/03/19 09:00 11/04/19 06:34 Flush - Normal Saline IVF 10 ml Q12HR NICOLE Administration Tramadol HCl 50 mg 11/02/19 21:45 11/04/19 01:02 Ultram PO 50 mg Q6H PRN Administration Pain - Exam General Appearance: NAD, awake alert General - other findings: cath, and pacer placed. Eye: PERRL ENT: normocephalic atraumatic Neck: supple Heart: RRR Heart - other findings: s/p pacer on left upper chest Respiratory: CTAB, normal chest expansion Gastrointestinal: soft, normal bowel sounds Neurological: no focal deficits Psychiatric: A&O x 3, oriented to place Hosp A/P - Plan nausea/vomiting --improving --poss d/t CKD, ESRD on PD and analgesic use --he is on ultram prn only here. --no diarrhea but does have wt loss Hx of renal transplant in 2002 --failed and now on Peritonal dialysis macrocytic anemia of Kidney dz wt loss - will get iron study panel -on epo -given wt loss and ongoing intractable N/v, will c/s GI--report reviewed AVblock II, indetereminate --s/p pacer on --echo showed nl EF Severe ao stenosis --cath done today to look at coronaries as well --prob plan for TAVR vs..open --report pending. Full code
[2019-11-05] MEDS: Lactinex Tablet PO SCH (09:09)
[2019-11-05] MEDS: Pantoprazole 40 MG VIAL IVP SCH (09:09)
[2019-11-05] MEDS: Calcitriol 0.25 MCG CAP PO SCH (09:09)
[2019-11-05] MEDS: Cephalexin 250 MG CAP PO SCH ×2 (09:09→14:12)
[2019-11-05] MEDS: Polyethylene Glycol 3350 17 GM Packet PO SCH (09:10)
[2019-11-05] MEDS: Allopurinol 300 MG TAB PO SCH (09:10)
--- NOTE | 2019-11-05 10:17 | PRG ---
DATE OF SERVICE: 11/05/2019 SUBJECTIVE: Mr. Gonsalves is a 69-year-old white male with ESRD and currently on CCPD. Adjustment of his peritoneal dialysis was done due to a low Kt/V from the outpatient setting. We have increased his fill volume to 2.9 L per exchange. In the interim, he was found to have sick sinus syndrome and a pacemaker has been placed. He tells me he has been doing well for the last 2 days. No complaints of chest pain or shortness of breath. OBJECTIVE: VITAL SIGNS: Blood pressure is 140/67, heart rate 77, respiratory rate 18, temperature 98.1, O2 saturation 94%. GENERAL: The patient is awake, alert, comfortable, not in distress. SKIN: Adequate turgor. HEENT: He has a slightly pale conjunctivae. Anicteric sclerae. NECK: No neck mass. No carotid bruits. No JVD. CHEST: No deformities. LUNGS: Clear breath sounds. HEART: Normal sinus rhythm. No murmur. No gallops. No rubs. ABDOMEN: Globular, soft, nontender. No masses. EXTREMITIES: No edema, no deformities. Positive for PD catheter in the abdomen. MEDICATIONS: November 05, 2019, reviewed. LABORATORY DATA: November 04, 2019; white count 3.7, hemoglobin 9.6. Sodium 134, potassium 4, chloride 92, carbon dioxide 24, BUN 86, creatinine 12.07, calcium 8.6. Troponin I 0.178. ASSESSMENT AND PLAN: 1. End-stage renal disease, stable, tolerating current peritoneal dialysis. Remove 1.3 L of peritoneal dialysis ultrafiltration. Tolerating said treatment. No changes will be made with the current peritoneal dialysis regimen. 2. Anemia, on weekly Epogen 81169 units subcutaneous every week. 3. Sick sinus syndrome, Mobitz type 1-status post pacemaker. He is feeling better. 4. Recheck CBC, basic metabolic profile in a.m. Job ID: [id number]
--- NOTE | 2019-11-05 12:59 | PDOC.CPN ---
- Subjective Date: 11/05/19 Time: 12:48 Interval history: No complaints today. Walked 350 steps. Feeling "better than ever." - Review of Systems General: denies: fever/chills, weight/appetite/sleep changes, night sweats, fatigue Respiratory: denies: cough, congestion, shortness of breath, exercise intolerance Cardiovascular: denies: chest pain, palpitation, edema, paroxysmal nocturnal dyspnea, orthopnea Gastrointestinal: denies: nausea, vomiting, diarrhea, constipation, abd pain, GI bleeding Musculoskeletal: denies: pain, tenderness, stiffness, swelling, arthritis/ arthralgias Neurological: denies: numbness, syncope, seizure, weakness - Objective Allergies/Adverse Reactions: Allergies Allergy/AdvReac Type Severity Reaction Status Date / Time ciprofloxacin Allergy Intermediate RASH/ITCHIN Verified 11/03/19 00:31 G Iodinated Contrast Media Allergy Intermediate RASH/ITCHIN Verified 11/03/19 00: 31 [Iodinated Contrast Media - G IV Dye] fluoroquinolones Allergy Uncoded 10/27/19 17:35 Visit Medications: Current Medications Acetaminophen/Codeine Phosphate (Tylenol #3) 1 tab PO Q4H PRN PRN Reason: Mild Pain (1-3) Last Admin: 11/04/19 20:20 Dose: 1 tab Acidophilus (Floranex) 1 tab PO DAILY [facility] Last Admin: 11/05/19 09:09 Dose: 1 tab Allopurinol (Zyloprim) 150 mg PO DAILY [facility] Last Admin: 11/05/19 09:10 Dose: 150 mg Calcitriol (Rocaltrol) 0.25 mcg PO DAILY [facility] Last Admin: 11/05/19 09:09 Dose: 0.25 mcg Cephalexin (Keflex) 250 mg PO TID [facility] Stop: 11/10/19 21:01 Last Admin: 11/05/19 09:09 Dose: 250 mg Epoetin Tato-epbx (Retacrit) 10,000 unit SC Q7D [facility] Last Admin: 11/03/19 11:33 Dose: 10,000 unit Ergocalciferol (Drisdol) 1.25 mg PO Q7DAYS [facility] Sodium Chloride (Normal Saline 0.9%) 200 mls @ 0 mls/hr IV ONE PRN PRN Reason: SBP < 90 Stop: 11/05/19 13:54 Ondansetron HCl (Zofran) 4 mg IVP Q6H PRN PRN Reason: Nausea/Vomiting Last Admin: 11/03/19 09:01 Dose: 4 mg Pantoprazole Sodium (Protonix) 40 mg IVP Q12HR [facility] Last Admin: 11/05/19 09:09 Dose: 40 mg Polyethylene Glycol (Miralax) 17 gm PO DAILY [facility] Last Admin: 11/05/19 09:10 Dose: 17 gm Rosuvastatin Calcium (Crestor) 10 mg PO 2100 NICOLE Sevelamer Carbonate (Renvela) 800 mg PO ASDIR [facility] Sodium Chloride (Flush - Normal Saline) 10 ml IVF Q12HR [facility] Last Admin: 11/04/19 20:20 Dose: 10 ml Sodium Chloride (Flush - Normal Saline) 10 ml IVF PRN PRN PRN Reason: Saline Flush Tramadol HCl (Ultram) 50 mg PO Q6H PRN PRN Reason: Pain Last Admin: 11/04/19 01:02 Dose: 50 mg Vital Signs & Weight: Vital Signs Temp Pulse Pulse Pulse Resp BP BP 11/05/19 11:32 98.2 F 62 16 11/05/19 11:02 77 70 171/75 H 153/80 H 11/05/19 09:15 66 76 112/62 140/67 11/05/19 09:01 98.1 F 77 18 11/05/19 09:00 11/05/19 03:56 97.6 F 64 20 11/05/19 01:57 BP BP Pulse Ox Pulse Ox Pulse Ox 11/05/19 11:32 139/74 99 11/05/19 11:02 96 95 11/05/19 09:15 11/05/19 09:01 140/67 94 L 11/05/19 09:00 94 L 11/05/19 03:56 138/73 96 11/05/19 01:57 97 Admit Weight 185 lb 8 oz Weight 186 lb 3.2 oz - Physical Exam HEENT: mucus membranes moist Neck: supple neck Cardiac: no murmur, other (chest wall with right hematoma. No active drainage. No pain.) Lungs: normal breath sounds, no wheeze, rales, rhonchi Neuro: grossly intact Abdomen: soft, non-tender Extremities: no edema Skin: brusing Musculoskeletal: no pain - Labs Result Diagrams: 11/04/19 04:38 11/04/19 04:38 Troponin/CKMB CK-MB (CK-2) 5.2 ng/mL (0-6.6) 11/02/19 17:15 Troponin I 0.178 ng/mL (< 0.028) H 11/04/19 04:38 - Assessment/Plan Assessment/Plan: 1. Bradycardia s/p pacemaker 2. Pacemaker pocket hematoma 3. Mild-moderate CAD 4. Severe 5. ESRD Overall stable. Plan for TAVR evaluation. He says his son lives in [place] and will find a surgeon there. Ok for discharge from my standpoint when ok with primary team. RG-Pt seen and examined; agree with the above assessment
--- NOTE | 2019-11-05 14:49 | PDOC.EVN ---
Event Note - Event Note Event Note: Mr. Gonsalves was seen today in follow-up of symptomatic bradycardia. He has been discussed with Darlene Yang NP and agree with her assessment. He is post pacemaker placement. He says he feels fine. He denies chest pain or dyspnea. He has been cleared for discharge .
[2019-11-05 17:08] VITALS: BP 149/72; TEMP 98
--- NOTE | 2019-11-05 20:51 | DIS ---
DATE OF ADMISSION: 11/02/2019 DATE OF DISCHARGE: 11/05/2019 DISCHARGE DISPOSITION AND FOLLOWUP: The patient is discharged home. The patient was seen and examined on the day of discharge. Denies any new complaints. INPATIENT CONSULTS: Cardiology, GI, Nephrology, and EP. CLINICAL COURSE: The patient is a very pleasant 69-year-old male, who presented to the ER for persistent nausea and vomiting. He was admitted to telemetry. At that time, he had indeterminate troponin levels with no chest pain and no shortness of breath. Nephrology was consulted as the patient is on peritoneal dialysis. Gastroenterology was consulted for his persistent nausea and vomiting. GI signed off after examining the patient with the impression that the nausea and vomiting were more medication related and recommended being on a twice daily PPI along with a daily MiraLAX. Cardiology and EP continued to follow the patient, and EP placed a pacemaker on 11/02. Pacemaker site did develop a hematoma, which they had a pressure dressing on afterwards. EP cleared him for discharge after and recommended for him to be on antibiotics for a week, and schedule for a two-week wound check. FINAL DIAGNOSES: 1. Nausea and vomiting. 2. End-stage renal disease. 3. Atrioventricular block, type 2, status post pacemaker placement. DISCHARGE MEDICATIONS: New medications: 1. MiraLAX daily. 2. Protonix 40 mg p.o. b.i.d. 3. Keflex 250 mg p.o. t.i.d. x16 more doses to equal his 21 doses. The patient to continue, 1. Allopurinol 150 mg p.o. daily. 2. Calcitriol 0.25 mcg p.o. daily. 3. Vitamin D2 of 50,000 units p.o. every seven days. 4. Hydralazine 100 mg. 5. Probiotic one capsule daily. 6. Magnesium 400 mg p.o. every two days. 7. Crestor 10 mg p.o. daily. 8. Renvela 800 mg with meals. 9. Tizanidine 4 mg p.o. b.i.d. 10. Tramadol 50 mg p.o. t.i.d. p.r.n. pain. DISCHARGE INSTRUCTIONS: The patient was instructed on how to monitor his pacemaker site and his activity restrictions with it. He is also encouraged to follow up for his wound care check in two weeks and to take all said medications as prescribed. He is to follow up with his primary care physician this following week and also follow up with GI if the nausea continues. Nephrology requested for him to follow up this next week as some changes were made to his peritoneal dialysis while in the hospital. TIME SPENT: Total time coordinating the discharge of this patient was 25 minutes. Patient discussed with Dr. Dillard. Job ID: [id number] MTDD
[2019-11-05] MEDS ORDERED: Rosuvastatin 5 MG TAB PO SCH (21:00)
--- NOTE | 2019-11-08 02:17 | PQF ---
LILLIE CUMMINGS JR, ZIAD MD [id number] [id number] CLINICAL DOCUMENTATION CLARIFICATION FORM: POST DISCHARGE Addendum to original discharge summary date: ____ Late entry note date: __ DATE: 11/08/2019 ATTN: Louis Cat Please exercise your independent, professional judgment in responding to the clarification form. Clinical indicators are provided on the bottom of this form for your review Please check appropriate box(s): [ ] Type 2 AV block [ Y ] Nausea and vomiting (please specify etiology) Medication__ [ ] Other diagnosis [ ] Unable to determine For continuity of documentation, please document condition throughout progress notes and discharge summary. Thank You. CLINICAL INDICATORS - SIGNS / SYMPTOMS / LABS ED Notes 11/01 "presents for nausea and vomiting" HP 11/01 "he does have bifascular block and prolonged QTC" PN 11/02 "nausea and vomiting still in the context of opiate use" Consult 11/02 "he has chronic symptoms of dizziness,lightheadedness" PN 11/03 "nausea/vomiting possibly due to CKD,esrd and analgesic use" RISK FACTORS Anemia-ED Notes 11/01 HLD-ED Notes 11/01 HTN-ED Notes 11/01 Former smoker-ED Notes 11/01 69 years old male-HP 11/01 CAD-HP 11/01 Aortic stenosis-HP 11/01 High Cholesterol-HP 11/01 ESRD-HP 11/01 Gastritis-PN 11/02 TREATMENTS: Electrocardiogram-Collected 11/01 Coronary angiogram-Collected 11/01 Pacemaker insetion-OP Note 11/01 EKG-ED Notes 11/01 HD-11/01 Cardiology consult-DS 11/04 GI Consult-DS 11/04 EP consult-DS 11/04 Nephrology consult-DS 11/04 Protonix 40mg IV-MAR 11/02 (This form is maintained as a part of the permanent medical record) 2014 [employer] All Rights Reserved [email or web address]
--- NOTE | 2019-11-08 02:20 | PQF ---
LILLIE CUMMINGS LOUIS CABALLERO MD [id number] CLINICAL DOCUMENTATION CLARIFICATION FORM: POST DISCHARGE Addendum to original discharge summary date: ____ Late entry note date: __ Date: 11/08/2019 ATTN: Louis Caballero Please exercise your independent, professional judgment in responding to the clarification form. Clinical indicators are provided on the bottom of this form for your review Please check appropriate box(s): [ y ] Protein Calorie Malnutrition: [ ] Mild [ y ] Moderate [ ] Severe [ ] Other Malnutrition (please specify) __ [ ] Underweight without malnutrition [ ] Cachexia [ ] Other diagnosis [ ] Unable to determine In addition, please specify: Present on Admission (POA): [ ] Yes [ ] No [ ] Unable to determine CLINICAL INDICATORS - SIGNS / SYMPTOMS / LABS BMI 23.9 - 11/03 edema to the right ankle - 11/03 poor intake- 11/03 weight loss- 11/03 Labs Albumin: 11/01=3.0 Labs Total Protein: 11/01=5.4 RISK FACTORS Anemia-ED Notes 11/01 HLD-ED Notes 11/01 HTN-ED Notes 11/01 Former smoker-ED Notes 11/01 69 years old male-HP 11/01 CAD-HP 11/01 Aortic stenosis-HP 11/01 High Cholesterol-HP 11/01 ESRD-HP 11/01 Gastritis-PN 11/02 TREATMENT: RD consult- 11/03 Renal-protein high diet- 11/03 Monitor weight change- 11/03 Monitor protein intake- 11/03 Moderate Malnutrition (in acute illness) Energy Intake: <75% of estimated energy requirement for > 7 days Weight Loss: 1-2%/1 week; 5%/ 1 month; 7.5%/3 months Other: mild body fat loss; mild muscle mass loss; mild fluid accumulation; Severe Malnutrition (in acute illness) Energy Intake: < 50% of estimated energy requirement for > 5 days Weight Loss: >1-2%/1 week; >5%/1 month; >7.5%/3 months Other: moderate body fat loss; moderate muscle mass loss; moderate- severe fluid accumulation; measurably reduced social security assessor strength Moderate Malnutrition (in chronic illness) Energy Intake: <75% of estimated energy requirement for >1 month Weight Loss: 5%/1 month; 7.5%/3 months; 10%/6 months; 20%/1 year Other: mild body fat loss; mild muscle mass loss; mild fluid accumulation Severe Malnutrition (in chronic illness) Energy Intake: <75% of estimated energy requirement for >1 month Weight Loss: >5%/1 month; >7.5%/3 months; >10%/6 months; >20%/1 year Other: severe body fat loss; severe muscle mass loss; severe fluid accumulation ; measurably reduced social security assessor strength (This form is maintained as a part of the permanent medical record) 2014 [email or web address] All Rights Reserved [email or web address]
[2019-11-09] MEDS ORDERED: Ergocalciferol 1.25 MG(50,000 UNITS) CAP PO SCH (09:00)
== END 2019-11-05 15:20 | disposition home or self-care (01) | DRG 242 ==
LOC: ERS 16:24 → OBSVTOIN 20:03 → 2NO 20:03
PROVIDERS: ADMIT Internal Medicine; ATTEND Internal Medicine
PROC: 5A1D70Z Performance of Urinary Filtration, Intermittent, Less than 6 Hours Per Day (ICD-10-PCS; 2019-11-02)
PROC: 0JH606Z Insertion of Pacemaker, Dual Chamber into Chest Subcutaneous Tissue and Fascia, Open Approach (ICD-10-PCS; 2019-11-03)
PROC: 02HK3JZ Insertion of Pacemaker Lead into Right Ventricle, Percutaneous Approach (ICD-10-PCS; 2019-11-03)
PROC: 02H63JZ Insertion of Pacemaker Lead into Right Atrium, Percutaneous Approach (ICD-10-PCS; 2019-11-03)
PROC: B2111ZZ Fluoroscopy of Multiple Coronary Arteries using Low Osmolar Contrast (ICD-10-PCS; principal; 2019-11-04)
DX: I44.1 Atrioventricular block, second degree (principal); N18.6 End stage renal disease; I12.0 Hypertensive chronic kidney disease with stage 5 chronic kidney disease or end stage renal disease; L76.32 Postprocedural hematoma of skin and subcutaneous tissue following other procedure; Z94.0 Kidney transplant status; E44.0 Moderate protein-calorie malnutrition; R11.2 Nausea with vomiting, unspecified; I45.3 Trifascicular block; E78.5 Hyperlipidemia, unspecified; I25.10 Atherosclerotic heart disease of native coronary artery without angina pectoris; I35.0 Nonrheumatic aortic (valve) stenosis; E78.00 Pure hypercholesterolemia, unspecified; D63.1 Anemia in chronic kidney disease; M10.9 Gout, unspecified; D46.9 Myelodysplastic syndrome, unspecified; I45.81 Long QT syndrome; I45.10 Unspecified right bundle-branch block; K29.70 Gastritis, unspecified, without bleeding; I49.5 Sick sinus syndrome; G89.29 Other chronic pain; K59.00 Constipation, unspecified; G47.30 Sleep apnea, unspecified; Y84.8 Other medical procedures as the cause of abnormal reaction of the patient, or of later complication, without mention of misadventure at the time of the procedure; Z87.891 Personal history of nicotine dependence; Z88.8 Allergy status to other drugs, medicaments and biological substances; Z88.1 Allergy status to other antibiotic agents; Z91.041 Radiographic dye allergy status; Z99.2 Dependence on renal dialysis; T50.905A Adverse effect of unspecified drugs, medicaments and biological substances, initial encounter; Z68.23 Body mass index [BMI] 23.0-23.9, adult
CPT/HCPCS: 33249; 36415; 71045; 74176; 76942; 80048; 80053; 82553; 83690; 83735; 84484; 85025; 90945; 93005; 93306; 93458; 93798; 94760; 99152; 99153; C1769; C1785; C1898; C9113; G0257; J0690; J1200; J1580; J1644; J2250; J2405; J3010; J7512; Q5105; Q9967

== ENCOUNTER 2019-11-27 20:46 | Inpatient (IN) | payer MEDICARE, OTHER ==
[2019-11-27] MEDS ORDERED: HYDROcodone/Acetaminophen 5/325 mg Tablet ONE (21:56)
--- NOTE | 2019-11-27 22:21 | RAD ---
Radiograph left shoulder 3 views: 11/27/2019 9:57 PM HISTORY: 69-year-old male with pain and swelling of left shoulder FINDINGS: Widening of the AC joint. No dislocation of glenohumeral joint. No fracture. Prominent interstitial m arkings throughout the visualized left upper lung zone. Diffuse osteopenia. No bre destructive osseous lesion identified. Probable soft tissue swelling. IMPRESSION: 1. No acute fracture. 2. Widening of acromioclavicular joint space 3. Diffuse soft tissue swelling.
[2019-11-27] MEDS ORDERED: Ondansetron PF 4 MG/2 ML Vial ONE (22:36)
[2019-11-27] MEDS ORDERED: Ondansetron ODT 4 MG TAB ONE (22:36)
--- NOTE | 2019-11-27 23:59 | ULT ---
ULTRASOUND DOPPLER DUPLEX VENOUS LEFT UPPER EXTREMITY: DATE: 11/27/2019 11:32 PM HISTORY: 69-year-old male with left upper extremity swelling TECHNIQUE: Grayscale, color-flow, and spectral analysis, of major veins of left lower extremity. FINDINGS: There is demonstration of blood flow with normal compressibility, of the left internal jugular, subcl yvette, axillary, brachial, basilic, and cephalic, veins. The left cephalic vein is dilated because of hemodialysis AV fistula. There is soft tissue edema in the forearm. At the shoulder, there is a large cystic mass. Much of the contents are anechoic fluid. In the deep p ortion of this collection, there is a 4 x 1 cm lobular solid mass with no evidence of blood flow by Doppler. IMPRESSION: 1. No deep venous thrombosis of left upper extremity. 2. Large solid and cystic mass in the soft tissues of the left shoulder. Etiology is uncertain, but o ne possibility is hematoma. The other possibility is abscess. Neoplasm is less likely but not excluded. 3. Soft tissue edema in the forearm. 4. Patent arteriovenous fistula for hemodialysis.
[2019-11-28 00:08] LABS: #Eosinphils 0.1 thou/uL (0.0-0.7); #Lymphocytes 0.7 thou/uL (1.20-3.40); #Monocytes 0.5 thou/uL (0.11-0.59); #Neutrophils 5.5 thou/uL (1.40-6.50); %Basophils 0.3 % (0.0-1.0); %Eosinophils 1.3 % (0.0-10.0); %Lymphocytes 9.7 % (21.0-51.0); %Monocytes 6.8 % (0.0-10.0); %Neutrophils 81.9 % (42.0-75.0); Hemoglobin 8.6 g/dL (14.0-18.0); Mean Corpuscular HGB CONC 31.6 g/dL (32.0-36.0); Mean Corpuscular Hemoglobin 31.8 pg (27.0-31.0); Mean Platelet Volume 8.3 fL (7.4-10.4); Platelet Count 149 thou/uL (130-400); RBC Distribution Width 15.1 % (11.5-14.5); Red Blood Cell (RBC) Count 2.69 mill/uL (4.70-6.10); White Blood Cell (WBC) Count 6.7 thou/uL (4.8-10.8)
[2019-11-28] MEDS ORDERED: Vancomycin 1 GM/200 ML BAG ONE (00:08)
[2019-11-28] MEDS ORDERED: Cefepime 2 GM VIAL ONE (00:08)
[2019-11-28 00:28] LABS: ALT (SGPT) Less than 7 U/L (8-55); AST (SGOT) 20 U/L (5-34); Albumin 2.8 g/dL (3.4-4.8); Alkaline Phosphatase 63 U/L (40-110); Anion Gap 22 mmol/L (10-20); BUN (Urea Nitrogen) 82 mg/dL (8.4-25.7); Bilirubin, Total 0.3 mg/dL (0.2-1.2); CK (CPK) 166 U/L (30-200); Calc. Creatinine Clearance 0 mL/min (70-130); Calcium 8.3 mg/dL (7.8-10.44); Carbon Dioxide 26 mmol/L (23-31); Chloride 93 mmol/L (98-107); Estimated GFR-MDRD 5; Globulin 3.3 g/dL (2.4-3.5); Glucose 101 mg/dL (83-110); Potassium 4.2 mmol/L (3.5-5.1); Protein, Total 6.1 g/dL (5.8-8.1); Sodium 137 mmol/L (136-145)
[2019-11-28] MEDS ORDERED: HYDROcodone/Acetaminophen 5/325 mg Tablet PO PRN (02:30)
[2019-11-28] MEDS ORDERED: Acetaminophen 650 MG Suppository PR PRN (02:30)
[2019-11-28] MEDS ORDERED: Acetaminophen 325 MG TAB PO PRN (02:30)
--- NOTE | 2019-11-28 02:41 | PDOC.HHP ---
Hospitalist HPI - History of Present Illness shoulder pain History of Present Illness: Case of an 69y/o male with pmhx of htn bradycardia s/p ppm placement(1m/a) esrd on P/D gout and hypercholesterolemia who comes to hospital due to L shoulder pain and arm swelling. patient refers he was on his usual state of health until 1 month ago when the pain and swelling started. patient states he belives pains started after he sprain shoulder moving some stuff. he refers that he is having intermittents low grade fevers. pain is described and / non radiating Hospitalist ROS - Review of Systems All other systems reviewed; all pertinent +/- noted in HPI/Subj Hospitalist History - Past Medical History Cardiac: reports: HTN, Hyperlipidemia Renal/: reports: Chronic renal failure - Past Surgical History Other Surgical History: back surgery ppm placement - Family History Family History: reports: cardiac disorder - Social History Smoking Status: Former smoker Alcohol: reports: None Drugs: reports: none Living Situation: With Family - Exam General Appearance: awake alert Eye: PERRL, anicteric sclera ENT: normocephalic atraumatic, no oropharyngeal lesions Neck: supple, symmetric, no JVD Heart: RRR, no murmur, no gallops Respiratory: CTAB, no wheezes, no rales Gastrointestinal: soft, non-tender, non-distended, normal bowel sounds Extremities: no cyanosis, no clubbing Extremities - other findings: r shoulder tender to palpatation whole arm swelling Skin: normal turgor, no lesions, no rashes Neurological: cranial nerve grossly intact, normal sensation to touch Musculoskeletal: normal tone, normal strength Psychiatric: normal affect, normal behavior, A&O x 3 Hospitalist Results - Labs Result Diagrams: 11/27/19 23:54 11/27/19 23:54 Lab results: WBC 6.7 thou/uL (4.8-10.8) 11/27/19 23:54 Hgb 8.6 g/dL (14.0-18.0) L 11/27/19 23:54 Hct 27.1 % (42.0-52.0) L 11/27/19 23:54 MCV 101.0 fL (78.0-98.0) H 11/27/19 23:54 Plt Count 149 thou/uL (130-400) 11/27/19 23:54 Neutrophils % 81.9 % (42.0-75.0) H 11/27/19 23:54 Sodium 137 mmol/L (136-145) 11/27/19 23:54 Potassium 4.2 mmol/L (3.5-5.1) 11/27/19 23:54 Chloride 93 mmol/L (98-107) L 11/27/19 23:54 Carbon Dioxide 26 mmol/L (23-31) 11/27/19 23:54 BUN 82 mg/dL (8.4-25.7) H 11/27/19 23:54 Creatinine 10.18 mg/dL (0.7-1.3) H 11/27/19 23:54 Glucose 101 mg/dL (83-110) 11/27/19 23:54 Lactic Acid 1.1 mmol/L (0.5-2.2) 11/27/19 23:54 Calcium 8.3 mg/dL (7.8-10.44) 11/27/19 23:54 Total Bilirubin 0.3 mg/dL (0.2-1.2) 11/27/19 23:54 AST 20 U/L (5-34) 11/27/19 23:54 ALT Less than 7 U/L (8-55) L 11/27/19 23:54 Alkaline Phosphatase 63 U/L (40-110) 11/27/19 23:54 Creatine Kinase 166 U/L (30-200) 11/27/19 23:54 C-Reactive Protein 16.75 mg/dL (= or < 0.5) H 11/27/19 23:55 Serum Total Protein 6.1 g/dL (5.8-8.1) 11/27/19 23:54 Albumin 2.8 g/dL (3.4-4.8) L 11/27/19 23:54 - Radiology Interpretation US - venous Additional Comment: large solid cyst mass on shoulder. Ddx abscess hematoma or neoplasm Hospitalist H&P A/P - Problem (1) Shoulder mass Code(s): R22.30 - LOCALIZED SWELLING, MASS AND LUMP, UNSPECIFIED UPPER LIMB Status: Acute (2) Gout Code(s): M10.9 - GOUT, UNSPECIFIED Status: Acute (3) HTN (hypertension) Code(s): I10 - ESSENTIAL (PRIMARY) HYPERTENSION Status: Acute (4) Hypercholesteremia Code(s): E78.00 - PURE HYPERCHOLESTEROLEMIA, UNSPECIFIED Status: Acute (5) ESRD (end stage renal disease) Code(s): N18.6 - END STAGE RENAL DISEASE Status: Acute - Plan Plan: - ortho consulted possilbe drainage in AM - pain management - continue P/D, role player consulted - prophylactically covered with abx w cefe and vanc - f/u blood cultures - continue home meds for chronic conditons - will hold dvt prophylaxis for now for possible procedure in am
[2019-11-28 05:37] LABS: INR-International Normal Ratio 1.2; Prothrombin Time 15.4 sec (12.0-14.7)
--- NOTE | 2019-11-28 10:07 | CON ---
DATE OF CONSULTATION: HISTORY OF PRESENT ILLNESS: Mr. Dwain Gonsalves is a 69-year-old white male with ESRD, currently on CCPD and admitted for left shoulder joint pain. He was also febrile. The working diagnosis is he may have a septic left shoulder joint. Empiric IV antibiotic has been started. The patient is now scheduled for drainage of a possible abscess in the left shoulder. We are being consulted for his maintenance peritoneal dialysis. REVIEW OF SYSTEMS: Positive for fever. Positive for left upper extremity swelling/shoulder joint swelling and shoulder joint pain. No chest pain or shortness of breath. No nausea. No vomiting. No diarrhea. No constipation. No productive cough. No syncopal episode. No dysuria. No urinary frequency. No hematochezia. No melena. No hematemesis. MEDICATIONS: Currently, 1. The patient is on acetaminophen 650 mg q.4 p.r.n. 2. Cefepime 2 g IV daily. 3. Hydrocodone 1 to 2 tabs q.4 p.r.n. HOME MEDICATIONS: Include: 1. Renvela 800 mg one tablet t.i.d. with meals. 2. Hydralazine 100 mg p.o. p.r.n. 3. Rosuvastatin 5 mg at bedtime. 4. Cephalexin 250 mg p.o. t.i.d. 5. Allopurinol 150 mg once a day. 6. Protonix 40 mg tablet b.i.d. 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 PAST SURGICAL HISTORY: Status post renal transplant surgery, status post renal allograft biopsy, status post right hip arthroplasty, status post PD catheter placement, status post renal biopsy of [place] kidney, status post umbilical hernia repair, status post cuffed dialysis catheter placement, status post upper and lower GI endoscopy. SOCIAL HISTORY: The patient , 3 children, lives in [place]. 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 He smoked for 8 years one pack a day. Alcohol, occasional. No IV drug abuse. Status post blood transfusion. Education, some college courses. FAMILY HISTORY: No family history of ESRD. ALLERGIES: CIPRO AND CONTRAST. TRAUMA: None. IMMUNIZATION: Up-to-date. HOSPITALIZATIONS: Please see Past Medical History. PHYSICAL EXAMINATION: VITAL SIGNS: Blood pressure was noted at 119/59, heart rate 97, respiratory rate 16, O2 saturation 93%, and temperature 98.3. GENERAL: Awake, alert, comfortable, not in distress. SKIN: Adequate turgor. HEENT: He has slightly pale conjunctivae. Anicteric sclerae. NECK: No neck mass. No carotid bruits. No JVD. CHEST: No deformities. LUNGS: Clear breath sounds. No wheezing. No crackles. HEART: Normal sinus rhythm. No murmur. No gallops. No rubs. ABDOMEN: Globular, soft, nontender. No masses. Positive for PD catheter. EXTREMITIES: No edema except for the left upper extremity. There is some mild swelling and swelling on the left shoulder joint. NEUROLOGIC: Awake, oriented to 3 spheres. Moving all extremities. No tremors. No asterixis. No ataxia. LABORATORY DATA: Laboratories on November 27, 2019; white count 6.7, hemoglobin 8.6. Sodium 137, potassium 4.2, chloride 93, carbon dioxide 26, BUN 82, creatinine 10.18, AST 20, ALT less than 7, albumin 2.8. C-reactive protein 16.75. On November 27, 2019, x-ray of the left shoulder joint shows widening of acromioclavicular joint space. There is diffuse soft tissue swelling. ASSESSMENT AND PLAN: 1. Left shoulder joint pain/left shoulder swelling - possible intra-articular abscess. Surgery has been consulted. The plan is to drain this fluid. He has received empiric IV antibiotics. 2. End-stage renal disease, stable. We will continue current CCPD regimen of 10 hours with a 2.5 L fill volume. Our plan is to use only a 1.5% PD solution to minimize ultrafiltration due to the low BP. 3. Anemia. We will treat infection and after few days, we will resume his regular Epogen dosing. 4. Consider restarting back on Renvela 800 mg p.o. one tablet t.i.d. 5. We will recheck CBC and basic metabolic profile. Job ID: [id number]
[2019-11-28] MEDS ORDERED: PHENYLEPHRINE-NS 100 MCG/ML 10 ML SYRINGE ONE (10:52)
[2019-11-28] MEDS ORDERED: Ondansetron PF 4 MG/2 ML Vial ONE (10:52)
[2019-11-28] MEDS ORDERED: Lidocaine 1% PF 5 ML VIAL ONE (10:52)
[2019-11-28] MEDS ORDERED: Fentanyl 100 MCG/2 ML VIAL ONE (11:43)
[2019-11-28] MEDS ORDERED: Lidocaine 2% Jelly 5 ML TUBE ONE (11:44)
[2019-11-28] MEDS ORDERED: Phenylephrine 10 MG/ML VIAL ONE (11:44)
[2019-11-28] MEDS ORDERED: Promethazine HCl 25 MG/ML VIAL IM PRN (12:45)
[2019-11-28] MEDS ORDERED: Ondansetron HCl/PF 4 MG/2 ML Vial IVP PRN (12:45)
[2019-11-28] MEDS ORDERED: Promethazine HCl 25 MG/ML VIAL SLOW IVP PRN (12:45)
--- NOTE | 2019-11-28 12:58 | CON ---
DATE OF CONSULTATION: 11/28/2019 HISTORY OF PRESENT ILLNESS: The patient is a 69-year-old male, who states that he was trying to lift and move some material at his home and felt a pop and had pain in the left shoulder since then. He states that this occurred one month ago. His states it occurred about 6 months ago. The patient started having some low-grade fevers. He started having some swelling in the left shoulder with swelling in the left upper extremity. He presented to the emergency room last night and he had a C-reactive protein of 16.75. He had an ultrasound, which showed a collection of fluid on the anterolateral and posterior aspect of the left shoulder. There was a concern that the patient may have an abscess in this area. The patient is unable to actively flex or abduct the left shoulder since his injury either one month ago or 6 months ago. He has had no open wounds and no erythema. He states that since he has been in the hospital, swelling in the left upper extremity has decreased. PAST MEDICAL HISTORY: Include chronic kidney disease. The patient has a fistula for dialysis that he had placed in the anterior left middle arm, there has been no problems with it. PHYSICAL EXAMINATION: VITAL SIGNS: From earlier this morning at approximately 3:00 a.m. showed temperature 98.3, temperature at 7 o'clock this morning was 98.3. EXTREMITIES: Examination of the left shoulder shows diffuse swelling around the left shoulder anteriorly, laterally, and posteriorly. He is tender in that area. There are no open wounds and there is no erythema. Has well-healed scar over the anterior aspect of the mid left arm where he has the dialysis catheter. There is mild swelling in the left upper extremity. LABORATORY DATA: White count 6.7, hemoglobin 8.6, hematocrit 27.1. PT 15.4, INR 1.2. Creatinine is 10.1, BUN is 82. IMPRESSION: Swelling from the left shoulder. It is possible that it may represent an abscess, but it is also very possible that when he injured his left shoulder either 1 or 6 months ago, he may have torn his rotator cuff and he has had swelling, pain, and weakness in the left shoulder since then. PLAN: We will go ahead and perform an incision and drainage. We will obtain fluid for culture and sensitivity and the patient will continue with IV antibiotics pending culture results from the fluid. Thank very much. Job ID: [id number]
[2019-11-28] MEDS: HYDROcodone/Acetaminophen 5/325 mg Tablet PO PRN (14:22)
[2019-11-28] MEDS: Sevelamer Carbonate 800 MG TAB PO SCH ×2 (14:23→18:40)
[2019-11-28] MEDS ORDERED: Vancomycin HCl 750 MG in Sodium Chloride 0.9% 250 ML 250 ML IVPB SCH (15:45)
[2019-11-28] MEDS ORDERED: Vancomycin Sliding Scale FS ONE (15:45)
[2019-11-28] MEDS ORDERED: Vancomycin 1 GM in Premix Bag 1 BAG IVPB SCH (15:45)
[2019-11-28] MEDS ORDERED: Vancomycin HCl 1.25 GM in Sodium Chloride 0.9% 250 ML 250 ML IVPB SCH (15:45)
[2019-11-28] MEDS ORDERED: HOLD VANCOMYCIN FOR LEVEL >20 FS SCH (15:45)
[2019-11-28] MEDS ORDERED: Vancomycin HCl 500 MG in Sodium Chloride 0.9% 100 ML IVPB SCH (15:45)
[2019-11-28] MEDS ORDERED: Sodium Chloride 0.9% 500 ML IV SCH (16:45)
[2019-11-28] MEDS ORDERED: Sevelamer Carbonate 800 MG TAB PO PRN (17:42)
--- NOTE | 2019-11-28 17:55 | PDOC.EVN ---
Event Note - Event Note Event Note: Pt seen for followup re: low blood pressure. Pt denies chest pain or light- headedness. No complaints at this time. BP 94/62, P 72. S1, S2, reg. Lumgs CTA. A/P: Hypotension, etiology unclear. Pt had surgery and anesthesia today. ? lingering effects of anesthetic agents. Check EKG and troponins, r/o cardiac etiology.
--- NOTE | 2019-11-28 18:16 | OP ---
DATE OF PROCEDURE: 11/28/2019 PREOPERATIVE DIAGNOSIS: Fluid accumulation around the left shoulder, possible abscess. POSTOPERATIVE DIAGNOSIS: Fluid accumulation around the left shoulder, possible abscess. PROCEDURE PERFORMED: Incision and drainage, irrigation and debridement of the left shoulder. ANESTHESIA: General. DESCRIPTION OF PROCEDURE: The patient was taken to the operating room, placed in supine position. Satisfactory general anesthesia was performed. The left shoulder area was sterilely prepped and draped in the usual fashion. A 1-inch incision was made over the posterior aspect of the shoulder where the fluid had accumulated and there was blood-tinged synovial fluid with debris in the fluid, that was evacuated. This fluid was also saved and sent for culture and sensitivity. The wound was palpated and the shoulder joint was entered with my finger. There was a very large rotator cuff tear, which the humeral head was completely uncovered. The Pulsavac was then used to irrigate the left shoulder, after which the wound was packed with half-inch packing material, one stitch was used to partially close the wound, and a large dressing was applied. The patient was then awakened, extubated, and transferred to recovery room in stable condition. ESTIMATED BLOOD LOSS: Minimal. COMPLICATIONS: None. Job ID: [id number]
[2019-11-28] MEDS ORDERED: Ondansetron PF 4 MG/2 ML Vial IVP SCH (20:00)
[2019-11-28 20:49] VITALS: BP 97/64
--- NOTE | 2019-11-28 21:19 | PDOC.EVN ---
Event Note - Event Note Event Note: Notified by RN, patient with an episode of vomiting associated with meal he had after coming back from procedure. He was given Zofran and feels much better. His BP remains in mid 90s systolic (stable) since receiving bolus of NS 500 mLs. Patient did not experience any chest pain. There was a delay in having his labs drawn due to being a hard stick. A second microbiology lab analyst was able to get labs done. He is feeling well at present. Plan is to transfer to Tele and continue to trend troponins. Consult Dr. Harris his scout sniper as per discussion with Dr. Rodriguez. Patients has been updated by Dr. Rodriguez. EKG done and showed a paced rhythm. Chest xray ordered. ADDENDUM: Notified by RN, initial troponin elevated at 28. Apparently has contacted Dr. Mauricio, unclear how she was able to reach him. Patients scout sniper is Dr. Harris. I have touched base with Dr. Mauricio who advised to transfer to CCU for closer monitoring and should he require pressors if BP drops again. updated who is happy to know he will be monitored closely. Patient with cath done 11/04/2019 30% stenosis x 14 mm- Prox CX 50% stenosis x 18 mm Prox RCA 40% stenosis x 14 mm Mid RCA 30% stenosis x 15 mm LMCA Echo done 10/2019 EF 55-60%, mildly dilated left atrium, impaired relaxation compatible with diastolic dysfunction. Severe , mild TR and mass attached to MV (?old vegetation). Patient status post ID of Shoulder Abscess done earlier today. He continues to feel well and without any complaints. Nausea resolved.
--- NOTE | 2019-11-28 22:25 | PDOC.EVN ---
Event Note - Event Note Event Note: Pt has been transferred to CCU. Discussed with CCU nurse. Pt had cardiac cath in late October 2019, reviewed report. Pt also reportedly had on and off fevers at home (none in the hospital) and chronic cough that has not changed. The differential diagnoses for elevated troponin include NSTEMI (which appears less likely given the coronary angiography findings) vs sepsis vs viral myocarditis ( including myocarditis from COVID 19 - pt tested negative for COVID virus infection in October 2019) vs other etiologies. Getting portable CXR and COVID 19 test. Isolation precautions. Pressors if needed. 2D echo.
--- NOTE | 2019-11-28 23:21 | RAD ---
EXAM: CHEST ONE VIEW HISTORY: Cough, elevated temperature. COMPARISON: 11/04/2019 FINDINGS: Dual lead right subclavian cardiac pacemaking device is again noted in place. Postoperative changes r ight shoulder are again seen. Cardiac silhouette is magnified by projection but does appear mildly enlarged. The pulmonary vasculature is within normal limits. Inferior aspect left lateral costophreni c angle is incompletely imaged. Lungs otherwise appear clear. Vascular calcifications are seen in the thoracic aorta. Chest is stable when compared to prior exam. IMPRESSION: 1. Cardiomegaly. 2. No acute cardiopulmonary process.
[2019-11-29 02:24] LABS: CKMB 37.4 ng/mL (0-6.6)
[2019-11-29] MEDS ORDERED: Sodium Chloride 0.9% 500 ML IV SCH (02:45)
[2019-11-29 04:14] LABS: Anion Gap 23 mmol/L (10-20); BUN (Urea Nitrogen) 82 mg/dL (8.4-25.7); Calc. Creatinine Clearance 8 mL/min (70-130); Calcium 8.1 mg/dL (7.8-10.44); Carbon Dioxide 21 mmol/L (23-31); Chloride 94 mmol/L (98-107); Estimated GFR-MDRD 5; Glucose 114 mg/dL (83-110); Potassium 5.2 mmol/L (3.5-5.1); Sodium 133 mmol/L (136-145)
[2019-11-29 04:23] LABS: #Lymphocytes 0.8 thou/uL (1.20-3.40); #Monocytes 0.5 thou/uL (0.11-0.59); #Neutrophils 3.4 thou/uL (1.40-6.50); %Basophils 0.4 % (0.0-1.0); %Eosinophils 0.9 % (0.0-10.0); %Lymphocytes 16.9 % (21.0-51.0); %Neutrophils 71.8 % (42.0-75.0); Hemoglobin 8.4 g/dL (14.0-18.0); Mean Corpuscular HGB CONC 31.7 g/dL (32.0-36.0); Mean Corpuscular Hemoglobin 32.1 pg (27.0-31.0); Mean Platelet Volume 9.4 fL (7.4-10.4); Platelet Count 111 thou/uL (130-400); Platelet Morphology Comment Appears Decreased; RBC Distribution Width 15.2 % (11.5-14.5); Red Blood Cell (RBC) Count 2.61 mill/uL (4.70-6.10); White Blood Cell (WBC) Count 4.7 thou/uL (4.8-10.8)
[2019-11-29 06:01] VITALS: BMI 25.9
[2019-11-29] MEDS: Sevelamer Carbonate 800 MG TAB PO SCH ×4 (08:08→18:42)
[2019-11-29] MEDS: Allopurinol 100 MG TAB PO SCH (08:08)
[2019-11-29] MEDS: Rosuvastatin 5 MG TAB PO SCH (08:10)
--- NOTE | 2019-11-29 09:30 | CON ---
DATE OF CONSULTATION: HISTORY OF PRESENT ILLNESS: This is a 69-year-old gentleman who is in the ICU postsurgery. He is hypotensive, blood pressure is 87/59, pulse is 92 and sats 96%. He has been in the hospital over 24 hours. In fact, he came to the hospital on 11/27 at 3'o clock with a diagnosis of shoulder pain, fever, and weakness. He was taken to surgery yesterday by Orthopedic surgery in his left shoulder, underwent an I and D for presumed infection. PAST MEDICAL HISTORY: Pertinent for chronic leukopenia, chronic anemia, chronic renal failure, peritoneal dialysis, hypertension. PREVIOUS SURGERIES: Spinal surgery, lumbar surgery, renal transplant in 2002, previous right shoulder surgery, right hip surgery, peritoneal dialysis in 2017, pacemaker in 10/2019. SOCIAL HISTORY: Smoke, quit 10 years ago. Alcohol, none right now. HOME MEDICATIONS: Includes: 1. Renvela 800. 2. Hydralazine 100 p.r.n. 3. Crestor 5. 4. Tramadol. 5. Allopurinol. 6. Protonix. ALLERGIES: CIPRO, QUINOLONES. REVIEW OF SYSTEMS: Otherwise, unremarkable. PHYSICAL EXAMINATION: VITAL SIGNS: His maximum temperature is 98.4, his blood pressures were 87/59, pulse rate 18. CHEST: Decreased breath sounds. No wheezing. CARDIAC: Normal S1, S2. No gallops. ABDOMEN: No masses. LABORATORY DATA: White count 4000, platelet count 11, slightly decreased. Creatinine is 10, BUN is 82. Troponin is elevated. ASSESSMENT: 1. Hypertension. 2. Septic arthritis. 3. Tobacco abuse. 4. Chronic obstructive pulmonary disease. 5. Coronary artery disease status post pacemaker. 6. From pulmonary standpoint, I feel to continue present antibiotics. Await cultures. 7. Added nebulizer treatments. 8. We will follow while in the ICU. This is a consultation note, 70 minutes, 50% direct patient care. Job ID: [id number]
[2019-11-29] MEDS ORDERED: Aspirin Chewable 81 MG TAB PO SCH (10:00)
[2019-11-29] MEDS ORDERED: Clopidogrel Bisulfate 300 MG TAB PO SCH (10:15)
[2019-11-29] MEDS: Albuterol 200 PUFF (6.7GM INHALER) INH SCH ×2 (12:44→18:25)
[2019-11-29 13:15] LABS: SARS-CoV-2 MS2 Positive; SARS-CoV-2 N Gene Negative; SARS-CoV-2 S Gene Negative; SARS-CoV-2 orf1ab Negative
--- NOTE | 2019-11-29 17:39 | EKG ---
Test Reason : ROUTINE Blood Pressure : / mmHG Vent. Rate : 093 BPM Atrial Rate : 093 BPM P-R Int : 170 ms QRS Dur : 198 ms QT Int : 460 ms P-R-T Axes : 031 -72 108 degrees QTc Int : 571 ms Atrial-sensed ventricular-paced rhythm Abnormal ECG When compared with ECG of 02-NOV-2019 18:37, Electronic ventricular pacemaker has replaced Wide QRS rhythm Confirmed by DR. Black MANCERA ([id number]) on 11/29/2019 5:39:27 PM Referred By: LILIAM BRICE Confirmed By:DR. Black MANCERA
--- NOTE | 2019-11-29 19:47 | PDOC.HOSPP ---
- Subjective Encounter Date: 11/29/19 Encounter Time: 17:00 Subjective: Pt seen for followup re: septic arthritis. No complaints today. - Objective Vital Signs & Weight: Vital Signs (12 hours) Temp Pulse Ox 11/29/19 16:00 98.1 F 11/29/19 12:00 97.7 F 11/29/19 08:00 97.5 F L 100 Weight Weight 201 lb 11.567 oz Most Recent Monitor Data Heart Rate from ECG 90 NIBP 92/62 NIBP BP-Mean 72 Respiration from ECG 16 SpO2 98 I&O: 11/28/19 11/29/19 11/30/19 06:59 06:59 06:59 Intake Total 1000 390 Output Total 295 50 Balance 705 340 Result Diagrams: 11/29/19 03:10 11/29/19 03:10 Additional Labs: labs and MARs reviewed by me EKG Reviewed by me: Yes (Tele: NSR) Hospitalist ROS - Review of Systems Constitutional: denies: fever, chills, sweats, weakness, malaise Cardiovascular: denies: chest pain, palpitations, orthopnea, paroxysmal noc. dyspnea, edema, light headedness Gastrointestinal: reports: nausea. denies: vomiting, abdominal pain, diarrhea, constipation, melena, hematochezia - Medication Medications: Active Medications Generic Name Dose Route Start Last Admin Trade Name Freq PRN Reason Stop Dose Admin Hydrocodone Bitart/Acetaminophen 1 tab 11/28/19 02:30 11/28/19 14:22 Norman 5/325 PO 1 tab Q4H PRN Administration Moderate Pain (4-6) Albuterol Sulfate 2 puff 11/29/19 13:00 11/29/19 18:25 Proventil Hfa INH 2 puff [id number] NICOLE Administration Allopurinol 150 mg 11/29/19 09:00 11/29/19 08:08 Zyloprim PO 150 mg DAILY NICOLE Administration Pantoprazole Sodium 40 mg 11/28/19 21:00 11/29/19 08:08 Protonix PO 40 mg BID NICOLE Administration Rosuvastatin Calcium 5 mg 11/29/19 09:00 11/29/19 08:10 Crestor PO 5 mg DAILY NICOLE Administration Sevelamer Carbonate 800 mg 11/28/19 12:00 11/29/19 18:42 Renvela PO Not Given TID-WM NICOLE - Exam General Appearance: awake alert Eye: anicteric sclera ENT: moist mucosa Neck: supple, no JVD Heart: RRR, no rubs Respiratory: CTAB, no wheezes, normal chest expansion Gastrointestinal: soft, non-tender Extremities: no cyanosis Extremities - other findings: s/p L shoulder surgery Psychiatric: normal affect, normal behavior Hosp A/P - Plan Hospitalist H&P A/P - Assessment (1) Septic arthritis (left shoulder) Status: Acute (2) hypotension Status: Acute (3) Elevated troponin Status: Acute (4) Gout Code(s): M10.9 - GOUT, UNSPECIFIED Status: Chronic (5) Dyslipidemia Status: Chronic (6) ESRD (end stage renal disease) Code(s): N18.6 - END STAGE RENAL DISEASE Status: Chronic - Plan -s/p I&D L shoulder yesterday (by orthopedic surgery) - pain controlled -pt had hypotension and elevated troponin yesterday evening, now in CCU -COVID 19 negative - Dialysis per nephrology service - Continue IV cefepime/IV vancomycin - f/u blood cultures - Updated over the telephone -Cardiology service consulted
--- NOTE | 2019-11-29 22:40 | CON ---
DATE OF CONSULTATION: HISTORY OF PRESENT ILLNESS: The patient is a 69-year-old gentleman with a history of aortic stenosis and coronary artery disease, who presented with weakness and was noted to be markedly hypertensive. The patient has a history of coronary artery disease. He was recently hospitalized and underwent a cardiac evaluation. He was found to have mild coronary artery disease and severe aortic stenosis. The patient stated that he preferred to undergo evaluation in [place] for a TAVR. The patient was undergoing evaluation when he presented with weakness and was noted to be markedly hypotensive and had left shoulder discomfort. The patient denied having any chest discomfort. He was admitted to the hospital and noted to have an elevated troponin level. PAST MEDICAL HISTORY: 1. Coronary artery disease. 2. Aortic stenosis. 3. Myelodysplastic syndrome. 4. End-stage renal disease. 5. Hypertension. 6. Hyperlipidemia. PAST SURGICAL HISTORY: Hip surgery, shoulder surgery, and peritoneal dialysis. SOCIAL HISTORY: Nonsmoker. ALLERGIES: CIPROFLOXACIN AND IODINE. PHYSICAL EXAMINATION: GENERAL: A well-developed gentleman, in no acute distress. VITAL SIGNS: Blood pressure is 90/60. NECK: No jugular venous distention. LUNGS: Clear to auscultation. HEART: Regular rate and rhythm. Normal S1 and S2 with a 3/6 systolic murmur. ABDOMEN: Nondistended. EXTREMITIES: AV fistula. LABORATORY DATA: White blood count 4.7, hemoglobin 8.4, hematocrit 26.5, platelets 111. Sodium 133, potassium 5.2, chloride 94, bicarbonate 21, BUN 82, creatinine 10. Troponin was 37. EKG revealed a dual-chamber electronic pacemaker. Echocardiogram revealed a severe decreased left systolic function with severe aortic stenosis. IMPRESSION: 1. Myocardial infarction. 2. Severe cardiomyopathy. 3. Mild coronary artery disease. 4. Status post pacemaker placement. 5. Severe aortic stenosis. This gentleman has suffered a myocardial infarction. He may have become hypotensive with his severe aortic stenosis and his right shoulder infection. From a cardiac standpoint, I have discussed the case with Dr. Kothari, who will consider the patient for further evaluation including possible transcatheter aortic valve replacement. PLAN: Transfer to [place] for possible TAVR. This is a critical care note, the time is 30 minutes. Job ID: [id number] MTDD
[2019-11-29] MEDS: HYDROcodone/Acetaminophen 5/325 mg Tablet PO PRN (22:55)
[2019-11-29] MEDS ORDERED: Cefepime 2 GM in Sodium Chloride 0.9% 100 ML IVPB SCH (23:59)
[2019-11-30] MEDS: Albuterol 200 PUFF (6.7GM INHALER) INH SCH ×4 (00:44→19:00)
[2019-11-30] MEDS ORDERED: Cefepime 2 GM in Sodium Chloride 0.9% 100 ML IVPB SCH (08:00)
[2019-11-30] MEDS: Sevelamer Carbonate 800 MG TAB PO SCH ×3 (08:11→16:04)
[2019-11-30] MEDS: HYDROcodone/Acetaminophen 5/325 mg Tablet PO PRN (08:11)
[2019-11-30] MEDS: Allopurinol 100 MG TAB PO SCH (08:38)
[2019-11-30] MEDS: Rosuvastatin 5 MG TAB PO SCH (08:38)
--- NOTE | 2019-11-30 08:56 | PRG ---
DATE OF SERVICE: 11/30/2019 SUBJECTIVE: This morning, he is awake, alert, and responsive. OBJECTIVE: VITAL SIGNS: His blood pressure is 90/61, pulse rate 18, sats 100%. GENERAL: Denies any pain or discomfort or shortness of breath. CHEST: No wheezing, crackles. CARDIAC: Normal S1, S2. ABDOMEN: No mass. ASSESSMENT: Infected shoulder, status post I and D, aortic stenosis, hypertension. He is on antibiotics for presumed sepsis, appears to be relatively stable. He can be transferred out of the ICU. Continue PT, supportive care. Job ID: [id number]
[2019-11-30] MEDS ORDERED: Clopidogrel Bisulfate 75 MG TAB PO SCH (09:00)
[2019-11-30] MEDS ORDERED: EPOETIN ALFA-EPBX (ESRD) 4,000 UNIT/ML VIAL SC SCH (09:00)
[2019-11-30] MEDS ORDERED: Aspirin 81 mg Enteric Coated Tablet PO SCH (09:00)
--- NOTE | 2019-11-30 09:29 | PRG ---
DATE OF SERVICE: 11/30/2019 SUBJECTIVE: Mr. Gonsalves is a 69-year-old white male with ESRD, who was initially admitted for left shoulder joint pain with swelling. An I and D was done by Surgery for a possible septic arthritis. We are following him up for his maintenance peritoneal dialysis. He underwent peritoneal dialysis without any difficulty last night. The patient voices no new complaints. He denies any chest pain or shortness of breath. A Cardiology consult was done with Dr. Kvean Harris regarding his aortic stenosis. His recommendation is after the patient has stabilized, to have the patient transferred to [place] for a TAVR. He has a schedule back in [place]; however, the schedule is too far away. OBJECTIVE: VITAL SIGNS: Blood pressure is 97/65, heart rate 89, respiratory rate 16, and O2 saturation 100%. GENERAL: Awake, alert, comfortable, not in overt distress. SKIN: Adequate turgor. HEENT: Slightly pale conjunctivae. Anicteric sclerae. NECK: No neck mass. No carotid bruits. No JVD. CHEST: No deformities. LUNGS: Clear breath sounds. HEART: Normal sinus rhythm. Grade 2/6 systolic murmur. No gallops. No rubs. ABDOMEN: Globular, soft, nontender. No masses. Positive for PD catheter. EXTREMITIES: Lower extremities; no edema, no deformities. Left upper extremity; minimal edema. MEDICATIONS: Medications of November 30, 2019, were reviewed. LABORATORY DATA: Laboratories of November 29, 2019; white count 4.7, hemoglobin 8.4. Sodium 133, potassium 5.2, chloride 94, carbon dioxide 21, BUN 82, and creatinine 10.16. Troponin I is 37.4, calcium is 8.1. ASSESSMENT AND PLAN: 1. Status post non-Q-wave myocardial infarction-continue supportive care. The patient is being followed by Cardiology. Recommendations; transfer him to [place] for a transcatheter aortic valve replacement. 2. Aortic stenosis, for transcatheter aortic valve replacement, to be done in [place]. 3. End-stage renal disease, stable. We will continue current peritoneal dialysis regimen. Tolerating said treatment. 4. Anemia. We will resume Epogen at 7500 units subcu every week. 5. Left shoulder joint swelling-status post I and D. 6. The patient is also on empiric antibiotics. Bacterial culture done on November 28, 2019, was so far negative. In addition, November 27, 2019, blood culture was negative. 7. Agree with current management. Job ID: [id number]
[2019-11-30 09:33] LABS: Vancomycin, Random 7.7 ug/mL (See Comment)
[2019-11-30 16:19] VITALS: TEMP 99
--- NOTE | 2019-11-30 18:18 | DIS ---
DATE OF ADMISSION: 11/28/2019 DATE OF DISCHARGE: 11/30/2019 PRIMARY CARE PROVIDER: Dr. Jacques Whyte. DISCHARGE DIAGNOSES: 1. Ehp-BT-gmlingghy myocardial infarction. 2. Cardiogenic shock. 3. Left shoulder swelling. 4. Left large rotator cuff tear. 5. Blood-tinged synovial fluid drained from left shoulder. 6. Cardiogenic shock. CONDITION OF PATIENT ON THE DAY OF DISCHARGE: Stable. I assessed Mr. Gonsalves on the day of discharge. He denies any chest pain or shortness of breath. Vital signs are stable. S1 and S2 are heard, regular. Lungs are clear to auscultation bilaterally. CONSULTATIONS DURING THIS HOSPITALIZATION: 1. Nephrology, Dr. Hinson. 2. Orthopedic Surgery, Dr. Bello Bustillos. 3. Cardiology, Dr. Kevan Harris. 4. Pulmonary and Critical Care Medicine, Dr. Gaspar. HOSPITAL COURSE: Mr. Gonsalves is a pleasant 69-year-old gentleman, who was admitted to [facility] for left shoulder swelling. It was initially suspected to be septic arthritis. He underwent incision and drainage, irrigation and debridement of the left shoulder. Following surgery, he became hypotensive. Troponins were elevated. He was seen by Cardiology Service. He was moved to the Critical Care Unit for hypotension. Cardiology Service felt that he had myocardial infarction. He also has aortic valve stenosis. Cardiology Service discussed his case with the senior unix administrator at [facility] in [place]. They agreed to accept him for possible transcatheter aortic valve replacement. He was seen by Nephrology Service for maintenance peritoneal dialysis. I discussed his case with Orthopedic Surgery Service on the day of discharge. They recommended discontinuing the antibiotics since his preliminary cultures were negative and it was felt that the drainage was mostly synovial fluid. Therefore, cefepime and vancomycin are being discontinued. His drain in the left shoulder will need to be removed by 1 inch every day, it was an 18-inch drain. The patient has been accepted at [facility] for further management and is being discharged there in a stable condition. ACTIVITY: As tolerated. DIET: Heart healthy and renal. DISCHARGE DESTINATION: [facility] in [place]. Total amount of time spent coordinating this discharge: 25 minutes. Job ID: [id number]
--- NOTE | 2019-12-02 04:08 | PQF ---
LILLIE CUMMINGS JR, WADE W MD [id number] CLINICAL DOCUMENTATION CLARIFICATION FORM: POST DISCHARGE Addendum to original discharge summary date: ____ Late entry note date: __ DATE:12/02/2019 ATTN: Bello Schilling Please exercise your independent, professional judgment in responding to the clarification form. Clinical indicators are provided on the bottom of this form for your review Please check appropriate box(s): [ ] Incision and Drainage only (No Debridement): Depth:[ ] Skin [ ] Subcutaneous [ ] Fascia [ ] Muscle [ ] Tendon [ ] Bone [ ] Other procedure diagnosis [ ] Unable to determine For continuity of documentation, please document condition throughout progress notes and discharge summary. Thank You. CLINICAL INDICATORS - SIGNS / SYMPTOMS / LABS Operative report p1 11/27 Dr Bustillos a 1 inch incision was made over the posterior aspect of the shoulder where there the fluid has accumulated and there was blood-tinged synovial fluid with debris in the fluid, that was evacuated Operative report p1 11/27 Dr Bustillos There was very large rotator cuff tear, which the humeral head was completely uncovered. Operative report p1 11/27 Dr Bustillos The Pulsavac was then used to irrigate the left shoulder RISK FACTORS Operative report p1 11/27 69 year-old Male Operative report p1 11/27 Fluid accumulation around the left shoulder, possible abscess Consult p1 11/27 Septic Arthritis PN 11/29 - Sepsis ED Notes 11/26 Former Smoker HP 11/27 ESRD HP 11/27 Gout TREATMENTS: Operative report p1 11/27 Incision and Drainage, irrigation and derbridement of the left shoulder MAR 11/27 IV Vancomycin 1.25 gm MAR 11/27 -IV Cefepime 2 gm Collected 11/26 Shoulder xray (This form is maintained as a part of the permanent medical record) 2014 [employer]. All Rights Reserved [email or web address]
== END 2019-11-30 18:30 | disposition short-term general hospital (02) | DRG 871 ==
LOC: ERS 20:46 → SURG B 11-28 03:16 → CCU 11-28 21:34
PROVIDERS: ADMIT Internal Medicine; ATTEND Internal Medicine
PROC: 3E1M39Z Irrigation of Peritoneal Cavity using Dialysate, Percutaneous Approach (ICD-10-PCS; principal; 2019-11-28)
PROC: 8E0ZXY6 Isolation (ICD-10-PCS; 2019-11-28)
PROC: 0X930ZZ Drainage of Left Shoulder Region, Open Approach (ICD-10-PCS; 2019-11-28)
DX: A41.9 Sepsis, unspecified organism (principal); N18.6 End stage renal disease; I21.4 Non-ST elevation (NSTEMI) myocardial infarction; R57.0 Cardiogenic shock; M00.9 Pyogenic arthritis, unspecified; T86.12 Kidney transplant failure; I42.9 Cardiomyopathy, unspecified; L02.414 Cutaneous abscess of left upper limb; N04.1 Nephrotic syndrome with focal and segmental glomerular lesions; Z20.828 Contact with and (suspected) exposure to other viral communicable diseases; I10 Essential (primary) hypertension; E78.5 Hyperlipidemia, unspecified; E78.00 Pure hypercholesterolemia, unspecified; M10.9 Gout, unspecified; D63.1 Anemia in chronic kidney disease; Y83.0 Surgical operation with transplant of whole organ as the cause of abnormal reaction of the patient, or of later complication, without mention of misadventure at the time of the procedure; M19.90 Unspecified osteoarthritis, unspecified site; E03.9 Hypothyroidism, unspecified; Z96.641 Presence of right artificial hip joint; I08.2 Rheumatic disorders of both aortic and tricuspid valves; J44.9 Chronic obstructive pulmonary disease, unspecified; I25.10 Atherosclerotic heart disease of native coronary artery without angina pectoris; M75.122 Complete rotator cuff tear or rupture of left shoulder, not specified as traumatic; R11.0 Nausea; Z91.041 Radiographic dye allergy status; Z87.891 Personal history of nicotine dependence; Z95.0 Presence of cardiac pacemaker; Z85.6 Personal history of leukemia; Z79.899 Other long term (current) drug therapy; Z99.2 Dependence on renal dialysis; Z88.1 Allergy status to other antibiotic agents
CPT/HCPCS: 36415; 71045; 80048; 80053; 80202; 82550; 82553; 83605; 84484; 85025; 85610; 86140; 87040; 87070; 87205; 87635; 90945; 93005; 93010; 93306; 96365; 96367; G0257; J0692; J2001; J2370; J2405; J3010; J3370; J3490; Q0162; Q5105; U0003